=== PATIENT | female | born 1935 | race Caucasian/White ===

== ENCOUNTER 2024-12-19 11:24 | Outpatient (CLI) | payer SELFPAY ==
[2024-12-19 11:39] LABS: Basophils % 0.2 %; Eosinophils # 0.1 10^3/uL (0.0-0.8); Hematocrit 37.6 % (36-47); Lymphocytes % 31.5 %; Mean Corpuscular Hemoglobin 31.2 pg (27-33); Mean Corpuscular Volume 94.5 fl (85-98); Mean Platelet Volume 9.1 fL (7.4-10.4); Monocytes # 0.6 10^3/uL (0.2-0.9); Monocytes % 8.9 %; Neutrophils # 3.65 10^3/uL (1.8-7.7); Neutrophils % 58.1 %; Nucleated Red Blood Cells % 0 %; Platelet Count 151 10^3/cmm (157-399); Red Blood Count 3.98 10^6/uL (3.85-5.65); Red Cell Distribution Width 13.1 % (12.1-15.1); White Blood Count 6.28 10^3/uL (3.29-11.43)
[2024-12-19 11:59] LABS: Alanine Aminotransferase 17 U/L (0-33); Albumin Level 3.3 g/dL (3.5-5.2); Alkaline Phosphatase 68 U/L (35-105); Anion Gap 12.6 (5-19); Aspartate Amino Transferase 29 U/L (0-32); Blood Urea Nitrogen 43 mg/dL (8-23); Calcium 9.1 mg/dL (8.5-10.5); Carbon Dioxide 27 mmol/L (22-29); Chloride 102 mmol/L (98-107); Chol HDL Ratio 4.18 mg/dL (0.0-4.40); Cholesterol 138 mg/dL (0-200); Globulin 2.6 g/dL (1.3-4.6); HDL Cholesterol 33 mg/dL (60-100); LDL Cholesterol Calculated 72 mg/dL (50-129); LDL HDL Ratio 2.18 RATIO (0.00-3.22); Osmolality Calculated 293 mOsm/kg (285-295); Potassium 3.6 mmol/L (3.5-5.1); Sodium 138 mmol/L (136-145); Total Bilirubin 0.5 mg/dL (0.15-1.2); Total Protein 5.9 g/dL (6.6-8.7); Triglycerides 165 mg/dL (0-150)
[2024-12-19 12:40] LABS: Estmated Average Glucose 134; Hemoglobin A1C 6.3 % (4.0-6.0)
[2024-12-19 13:11] LABS: Glucose 35 mg/dL (65-115)
== END 2024-12-19 11:25 | disposition home or self-care (01) ==
LOC: LAB 11:30
PROVIDERS: PCP Family Medicine; Visit Provider Family Medicine
DX: I10 Essential (primary) hypertension (principal)
CPT/HCPCS: 80053; 80061; 83036; 85025

== ENCOUNTER 2025-01-01 23:36 | Emergency (ER) | payer SELFPAY ==
[2025-01-01 23:37] VITALS: BP 115/71; PULSE 51; RESP 20; TEMP 36.6; O2SAT 93
--- NOTE | 2025-01-01 23:50 | W.ED.RECABL ---
HPI - Recheck/Abnormal Lab/Rx General: Chief Complaint: Recheck/Abnormal Lab/Rx Stated Complaint: LOW BS Time Seen by Provider: 01/01/25 23:39 History of Present Illness: Patient brought in by EMS for hypoglycemia from [facility]. Patient is a DNR. Patient had poor oral intake throughout the day. Patient had received her usual diabetic medications including Lantus. This evening was noted that patient's blood sugar was 41. Patient decreased activity. Patient appears nontoxic. Related Data Previous Rx's ?Medication ?Instructions ?Recorded carvedilol 12.5 mg tablet 12.5 mg PO BID #60 tabs 01/02/25 cephalexin 250 mg capsule 250 mg PO BID 7 days #14 caps 01/02/25 insulin glargine 100 unit/mL 18 unit (0.18 mL) SUBCUT DAILY #10 01/02/25 subcutaneous solution (Lantus mL U-100 Insulin) Review of Systems General: Reports: 10 or more systems reviewed and unremarkable except in HPI and below Physical Exam Const: COMMON NORMALS: average body habitus HENMT: COMMON NORMALS: normocephalic HEAD & SCALP: normocephalic Neck/C-Spine: COMMON NORMALS: full ROM Resp: COMMON NORMALS: normal respiratory effort GI: PALPATION: No Tenderness to palpation present (GI) Back/Pelvis: COMMON NORMALS: thoracic and lumbar spine normal to inspection Extremity: COMMON NORMALS: no pedal edema Neuro: OTHER: Nonverbal Skin: COMMON NORMALS: turgor normal GENERAL SKIN EXAM: turgor normal Course Vital Signs: Vital signs: Vital Signs Temperature 98 F 01/01/25 23:37 Pulse Rate 51 L 01/01/25 23:37 Respiratory Rate 20 H 01/01/25 23:37 Blood Pressure 115/71 01/01/25 23:37 Pulse Oximetry 93 01/01/25 23:37 MDM - Recheck/Abnormal Lab/Rx Medical Decision Making 89-year-old female comes in today for concerns of low blood glucose. Patient appears nontoxic. Blood glucose at this time is 240. Patient had a recorded blood glucose of 41 at the [facility] when EMS arrived. Patient eyes open and she looks around but then she closes her eyes again. Patient does not respond to verbal stimuli. Patient is only oriented to self. Patient has a history of chronic kidney disease, insulin-dependent diabetes, hypertension, heart disease, stroke syndrome and nonverbal. Patient's pulse rate is 51 the patient takes 25 carvedilol twice a day. Patient is routinely on Plavix. Patient takes her losartan for blood pressure. EKG was a sinus bradycardia. Differential diagnosis sepsis, hypoglycemia, electrolyte imbalance, pneumonia, urinary tract infection. CBC was unremarkable. CMP noted a improvement in patient's creatinine from 1.6-1.3. Patient's urinalysis had a large amount of white blood cells and this was a straight cath. Recommended patient's carvedilol be reduced from 25 mg twice a day to 12-1/2 mg twice a day due to patient's bradycardia. Recommend decreasing Lantus from 22 units daily to 18 units daily to help with patient's hypoglycemia. Patient will be given 1 g of Rocephin in the ER for urinary tract infection and be continued on cephalexin 250 twice a day for the next 7 days. Encourage fluids rest and healthy diet. Patient was discharged back to [facility] in stable condition. Lab Data 01/02/25 00:00 01/02/25 00:00 Radiology Impressions Chest X-Ray 01/02/25 00:05 IMPRESSION: 1. Cardiomegaly. 2. Aortic atherosclerotic calcifications. Laboratory Results WBC 7.65 10^3/uL (3.29-11.43) 01/02/25 00:00 RBC 3.82 10^6/uL (3.85-5.65) L 01/02/25 00:00 Hgb 11.80 g/dL (11.27-16.99) 01/02/25 00:00 Hct 35.3 % (36-47) L 01/02/25 00:00 MCV 92.4 fl (85-98) 01/02/25 00:00 MCH 30.9 pg (27-33) 01/02/25 00:00 MCHC 33.4 g/dL (30-55) 01/02/25 00:00 RDW 13.4 % (12.1-15.1) 01/02/25 00:00 Plt Count 146 10^3/cmm (157-399) L 01/02/25 00:00 MPV 8.9 fL (7.4-10.4) 01/02/25 00:00 Neut % (Auto) 77.1 % 01/02/25 00:00 Lymph % (Auto) 17.5 % 01/02/25 00:00 Bent % (Auto) 4.7 % 01/02/25 00:00 Eos % (Auto) 0.5 % 01/02/25 00:00 Baso % (Auto) 0.1 % 01/02/25 00:00 Neut # (Auto) 5.89 10^3/uL (1.8-7.7) 01/02/25 00:00 Lymph # (Auto) 1.3 10^3/uL (0.8-4.8) 01/02/25 00:00 Bent # (Auto) 0.4 10^3/uL (0.2-0.9) 01/02/25 00:00 Eos # (Auto) 0.0 10^3/uL (0.0-0.8) 01/02/25 00:00 Baso # (Auto) 0.0 10^3/uL (0.0-0.1) 01/02/25 00:00 Nucleated RBC % (auto) 0 % 01/02/25 00:00 Nucleated RBCs # 0.0 /100WBC 01/02/25 00:00 Sodium 133 mmol/L (136-145) L 01/02/25 00:00 Potassium 3.8 mmol/L (3.5-5.1) 01/02/25 00:00 Chloride 96 mmol/L (98-107) L 01/02/25 00:00 Carbon Dioxide 28 mmol/L (22-29) 01/02/25 00:00 Anion Gap 12.8 (5-19) 01/02/25 00:00 BUN 31 mg/dL (8-23) H 01/02/25 00:00 Creatinine 1.3 mg/dL (0.5-0.9) H 01/02/25 00:00 GFR Calculation Not Reportable 01/02/25 00:00 Glucose 165 mg/dL (65-115) H 01/02/25 00:00 POC Glucose 234 mg/dL (70-110) H 01/01/25 23:42 Calculated Osmolality 286 mOsm/kg (285-295) 01/02/25 00:00 Calcium 9.1 mg/dL (8.5-10.5) 01/02/25 00:00 Total Bilirubin 0.4 mg/dL (0.15-1.2) 01/02/25 00:00 AST 122 U/L (0-32) H 01/02/25 00:00 ALT 34 U/L (0-33) H 01/02/25 00:00 Alkaline Phosphatase 76 U/L (35-105) 01/02/25 00:00 Total Protein 6.2 g/dL (6.6-8.7) L 01/02/25 00:00 Albumin 3.1 g/dL (3.5-5.2) L 01/02/25 00:00 Globulin 3.1 g/dL (1.3-4.6) 01/02/25 00:00 Urine Color Yellow (Yellow) 01/02/25 00:25 Urine Appearance Turbid (CLEAR) A 01/02/25 00:25 Urine pH 7.0 (5-7) 01/02/25 00:25 Ur Specific [place] 1.016 (1.005-1.030) 01/02/25 00:25 Urine Protein 1+ (Negative) A 01/02/25 00:25 Urine Glucose (UA) Trace (Normal) H 01/02/25 00:25 Urine Ketones Negative (Negative) 01/02/25 00:25 Urine Blood Trace (Negative) A 01/02/25 00:25 Urine Nitrate Negative (Negative) 01/02/25 00:25 Urine Bilirubin Negative (Negative) 01/02/25 00:25 Urine Urobilinogen 0.2 mg/dL (Negative) 01/02/25 00:25 Ur Leukocyte Esterase 3+ (Negative) A 01/02/25 00:25 Urine RBC 3-5 /hpf (0-2) 01/02/25 00:25 Urine WBC >100 /hpf (0-5) H 01/02/25 00:25 Ur Squamous Epith Cells 21-50 /hpf (0-5) H 01/02/25 00:25 Amorphous Sediment Not Reportable 01/02/25 00:25 Urine Bacteria 4+ /hpf (NONE) H 01/02/25 00:25 Hyaline Casts 23.57 /lpf 01/02/25 00:25 All radiology interpretation(s) finalized by discharge Discharge Plan Discharge Patient Disposition: Home Clinical Impression: Hypoglycemia, Acute UTI Condition: Stable Prescriptions: New carvedilol 12.5 mg tablet 12.5 mg PO BID Qty: 60 0RF Rx Instructions: must administer with a meal/food insulin glargine [Lantus U-100 Insulin] 100 unit/mL solution 18 unit SUBCUT DAILY Qty: 10 0RF cephalexin 250 mg capsule 250 mg PO BID 7 Days Qty: 14 0RF Discharge Orders: Discharge ED (Routine); Ordered 01/02/25 Ordered By: Jerome Cline Referrals: Lex Pan MD [Primary Care Provider] - Discharge Diet: Usual diet Discharge Activity: Increase activity as tolerated Patient Instructions: Hypoglycemia Activity Restrictions/Additional Instructions: Recommend reducing Lantus from 22 units daily to 18 units daily. Recommend decreasing carvedilol to 12-1/2 mg twice daily. Recommend cephalexin 250 twice a day for 7 days for urinary tract infection. Encourage plenty of fluids. Encourage healthy diet. Follow-up with primary care. Print Language: Indonesian Coding Level of Care Code ED Historic Sites Registrar for Megan Silva
--- NOTE | 2025-01-01 23:53 | ECG_ITS ---
[facility] 2025[facility] Pat Name: Sara Almeida Department: Room: Gender: Female Ict Programmer: : 1935 Requested By: Jerome Monique Order Number: [id number] Daniel MD: Trey Kaur M.D. Measurements Intervals [place] Rate: 46 P: 23 UT: 244 QRS: 91 QRSD: 98 T: 68 QT: 481 QTc: 421 Interpretive Statements SINUS BRADYCARDIA WITH SIGNIFICANT BASELINE ARTIFACT BORDERLINE RIGHT AXIS DEVIATION [QRS AXIS > 90] PATTERN CONSISTENT WITH PULMONARY DISEASE MODERATE ST DEPRESSION [0.05+ mV ST DEPRESSION] No previous ECG available for comparison Electronically Signed On 01-02-2025 19:28:26 NUCLEAR WEAPONS SPECIALIST by Trey Kaur M.D. [id number]
--- NOTE | 2025-01-02 00:05 | XRR_ITS ---
PROCEDURE INFORMATION: Exam: XR Chest Exam date and time: 01/02/2025 12:08 AM Age: 89 years old Clinical indication: AMS; Nonverbal PT; Uknown HX TECHNIQUE: Imaging protocol: Radiologic exam of the chest. Views: 1 view. COMPARISON: No relevant prior studies available. FINDINGS: Lungs: Unremarkable. No consolidation. Pleural spaces: Unremarkable. No pleural effusion. No pneumothorax. Heart/Mediastinum: Cardiomegaly. Vasculature: Aortic atherosclerotic calcifications. Bones/joints: Unremarkable. XR/XR chest 1V portable [id number] IMPRESSION: 1. Cardiomegaly. 2. Aortic atherosclerotic calcifications.
[2025-01-02 00:07] LABS: Glucose Point of Care 234 mg/dL (70-110)
[2025-01-02 00:24] LABS: Alanine Aminotransferase 34 U/L (0-33); Albumin Level 3.1 g/dL (3.5-5.2); Alkaline Phosphatase 76 U/L (35-105); Anion Gap 12.8 (5-19); Aspartate Amino Transferase 122 U/L (0-32); Blood Urea Nitrogen 31 mg/dL (8-23); Calcium 9.1 mg/dL (8.5-10.5); Carbon Dioxide 28 mmol/L (22-29); Chloride 96 mmol/L (98-107); Globulin 3.1 g/dL (1.3-4.6); Glucose 165 mg/dL (65-115); Osmolality Calculated 286 mOsm/kg (285-295); Potassium 3.8 mmol/L (3.5-5.1); Sodium 133 mmol/L (136-145); Total Bilirubin 0.4 mg/dL (0.15-1.2); Total Protein 6.2 g/dL (6.6-8.7)
[2025-01-02 00:26] LABS: Basophils % 0.1 %; Eosinophils % 0.5 %; Hematocrit 35.3 % (36-47); Lymphocytes # 1.3 10^3/uL (0.8-4.8); Lymphocytes % 17.5 %; Mean Corpuscular HGB Conc 33.4 g/dL (30-55); Mean Corpuscular Hemoglobin 30.9 pg (27-33); Mean Corpuscular Volume 92.4 fl (85-98); Mean Platelet Volume 8.9 fL (7.4-10.4); Monocytes # 0.4 10^3/uL (0.2-0.9); Monocytes % 4.7 %; Neutrophils # 5.89 10^3/uL (1.8-7.7); Neutrophils % 77.1 %; Nucleated Red Blood Cells % 0 %; Platelet Count 146 10^3/cmm (157-399); Red Blood Count 3.82 10^6/uL (3.85-5.65); Red Cell Distribution Width 13.4 % (12.1-15.1); White Blood Count 7.65 10^3/uL (3.29-11.43)
[2025-01-02 00:32] LABS: Bilirubin Urine Negative (Negative); Blood Urine Trace (Negative); Glucose Urine UA Trace (Normal); Ketones Urine Negative (Negative); Leukocyte Esterase Urine 3+ (Negative); Nitrate Urine Negative (Negative); Protein Urine 1+ (Negative); Specific Gravity, Urine 1.016 (1.005-1.030); Urine Appearance Turbid (CLEAR); Urine Color Yellow (Yellow); Urobilinogen Urine 0.2 mg/dL (Negative)
[2025-01-02 00:37] LABS: Add Urine Microscopic? YES; Bacteria Urine 4+ /hpf; Hyaline Casts Urine 23.57 /lpf; Squamous Epithelial Cell Urine 21-50 /hpf (0-5); Universal Test for UA Present (0); WBC Urine >100 /hpf (0-5)
[2025-01-02 00:53] LABS: Add Urine Culture? No
[2025-01-02] MEDS: cefTRIAXone 1,000 mg SDV 1000 MG IVP (01:21)
[2025-01-02 01:22] VITALS: BP 126/37; PULSE 49; O2SAT 98
[2025-01-02 03:55] VITALS: BP 132/38; PULSE 50; O2SAT 98
[2025-01-02 05:40] VITALS: PULSE 50; O2SAT 98
[2025-01-02 07:30] VITALS: BP 154/87; PULSE 56; O2SAT 97
--- NOTE | 2025-01-02 07:30 | PC.NURSE ---
report given to [facility] @[id number], no further questions.
== END 2025-01-02 07:38 | disposition home or self-care (01) ==
PROVIDERS: Emergency Provider Nurse Practitioner Family; PCP Family Medicine
DX: E16.2 Hypoglycemia, unspecified (principal); Z79.4 Long term (current) use of insulin
CPT/HCPCS: 36416; 71045; 80053; 81001; 82962; 85025; 93005; 96374; 99285; J0696

== ENCOUNTER 2025-01-03 09:04 | Inpatient (IN) | payer MEDICARE, OTHER, SELFPAY ==
[2025-01-03] VITALS (88 sets, daily range): BP systolic 95–162; BP diastolic 24–91; PULSE 40–76; RESP 10–25; TEMP 36.4–36.7; O2SAT 90–100
--- NOTE | 2025-01-03 09:21 | ECG_ITS ---
[facility] Test Date: 2025-01-03 Pat Name: Sara Almeida Department: Room: 253 Gender: Female Quality Assurance Assessor: : 1935 Requested By: Poornima Farias Order Number: [id number] Reading MD: SOPHIA VILLALBA Measurements Intervals [place] Rate: 44 P: 90 DE: 267 QRS: -31 QRSD: 106 T: 21 QT: 464 QTc: 400 Interpretive Statements SINUS BRADYCARDIA WITH FIRST DEGREE AV BLOCK LEFT AXIS DEVIATION [QRS AXIS < -30] POSSIBLE ANTERIOR MYOCARDIAL INFARCTION , PROBABLY OLD [30 ms Q WAVE IN V3/V4, OR R < 0.2 mV IN V4] Compared to ECG 01/01/2025 23:53:13 First degree AV block now present Left-axis deviation now present Myocardial infarct finding now present ST (T wave) deviation no longer present Electronically Signed On 01-04-2025 22:32:15 CDT by SOPHIA VILLALBA [id number]
--- NOTE | 2025-01-03 09:21 | PC.PHAR ---
Pt is from [facility]
--- NOTE | 2025-01-03 09:41 | CTR_ITS ---
PROCEDURE INFORMATION: Exam: CT Head Without Contrast Exam date and time: 01/03/2025 8:48 AM Age: 89 years old Clinical indication: Altered mental status/memory loss; Additional info: AMS TECHNIQUE: Imaging protocol: Computed tomography of the head without contrast. Radiation optimization: All CT scans at this facility use at least one of these dose optimization techniques: automated exposure control; mA and/or kV adjustment per patient size (includes targeted exams where dose is matched to clinical indication); or iterative reconstruction. COMPARISON: No relevant prior studies available. RADIATION DOSE METRICS: Total DLP (mGy-cm): 1013.18 FINDINGS: Brain: Encephalomalacia in the right MCA territory, from prior infarct. Age related diffuse parenchymal volume loss. There are bilateral periventricular white matter and centrum semiovale hypodensities, consistent with chronic ischemic small vessel disease. No recent infarct, intracranial bleed or mass effect. Cerebral ventricles: Ex vacuo dilatation of the ventricles. Paranasal sinuses: Visualized sinuses are unremarkable. No fluid levels. Mastoid air cells: Visualized mastoid air cells are well aerated. Bones: Unremarkable. No acute fracture. Soft tissues: Unremarkable. CT/CT head wo con* [id number] IMPRESSION: No large territorial infarct or intracranial bleed.
[2025-01-03 09:47] LABS: Glucose Point of Care 221 mg/dL (70-110)
[2025-01-03 09:50] LABS: Basophils % 0.1 %; Eosinophils % 0.2 %; Hematocrit 36.5 % (36-47); Lymphocytes # 1.2 10^3/uL (0.8-4.8); Lymphocytes % 14.8 %; Mean Corpuscular HGB Conc 32.3 g/dL (30-55); Mean Corpuscular Hemoglobin 30.5 pg (27-33); Mean Corpuscular Volume 94.3 fl (85-98); Mean Platelet Volume 8.7 fL (7.4-10.4); Monocytes # 0.3 10^3/uL (0.2-0.9); Monocytes % 4.2 %; Neutrophils # 6.57 10^3/uL (1.8-7.7); Neutrophils % 80.3 %; Nucleated Red Blood Cells % 0 %; Platelet Count 135 10^3/cmm (157-399); Red Blood Count 3.87 10^6/uL (3.85-5.65); Red Cell Distribution Width 13.8 % (12.1-15.1); White Blood Count 8.18 10^3/uL (3.29-11.43)
--- NOTE | 2025-01-03 09:55 | PC.PHAR ---
Dr Cline prescribed reduced dosage on Carvedilol 25mg bid to 12.5mg bid, and Lantus Solostar from 22 units to 18 units yesterday 01/02/25 for this pt. Chung at [facility] pt has not been reduced on either medication. Pt also has a new order for Keflex 250mg bid from 01/02/25 that has not been started yet. New lower dose medications were entered in pt chart and left on hold.
[2025-01-03 10:12] LABS: Alanine Aminotransferase 35 U/L (0-33); Albumin Level 3.1 g/dL (3.5-5.2); Alkaline Phosphatase 76 U/L (35-105); Anion Gap 13.6 (5-19); Aspartate Amino Transferase 85 U/L (0-32); Blood Urea Nitrogen 30 mg/dL (8-23); Calcium 9.2 mg/dL (8.5-10.5); Carbon Dioxide 27 mmol/L (22-29); Chloride 97 mmol/L (98-107); Globulin 3.1 g/dL (1.3-4.6); Glucose 163 mg/dL (65-115); Lactic Sepsis W/Reflex 1.1 mmol/L (0.5-2.2); Osmolality Calculated 288 mOsm/kg (285-295); Potassium 3.6 mmol/L (3.5-5.1); Sodium 134 mmol/L (136-145); Total Bilirubin 0.5 mg/dL (0.15-1.2); Total Protein 6.2 g/dL (6.6-8.7)
[2025-01-03 10:37] LABS: Glucose Point of Care 122 mg/dL (70-110)
[2025-01-03 11:54] LABS: Glucose Point of Care 107 mg/dL (70-110)
--- NOTE | 2025-01-03 12:16 | W.ED.RECABL ---
HPI - Recheck/Abnormal Lab/Rx General: Chief Complaint: Recheck/Abnormal Lab/Rx Stated Complaint: ams Time Seen by Provider: 01/03/25 09:05 History of Present Illness: This patient is an 89 year old [facility] and low blood sugar. She was seen here yesterday with low blood sugar as well. At discharge, the instructions indicate that she should have her night time lantus dose changed to 18 units rather than 22, and her coreg dose was also decreased to 12.5 due to bradycardia. EMS was told that she [facility] 22 [facility] were also told that the [facility]'t [facility] blood [facility] prior to giving that medicine. The nurse that called report to the ED charge nurse this morning said she did know if anyone had checked on the patient last night so there is no LKW other than yesterday evening at some point. The patient was also diagnosed with a UTI yesterday and was prescribed antibiotics. 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 Her normal mental status is not known at this time. Related Data Home Medications ?Medication ?Instructions ?Recorded ?Confirmed cetirizine 10 mg tablet 10 mg PO DAILY 01/03/25 01/03/25 clopidogrel 75 mg tablet 75 mg PO DAILY 01/03/25 01/03/25 Held on 01/05/25. Instructions: Resume on 01/11/25. escitalopram oxalate 20 mg tablet 20 mg PO DAILY 01/03/25 01/03/25 furosemide 20 mg tablet 20 mg PO DAILY 01/03/25 01/03/25 hydralazine 25 mg tablet 25 mg PO TID 01/03/25 01/03/25 levothyroxine 25 mcg tablet 25 mcg PO DAILY 01/03/25 01/03/25 magnesium oxide 400 mg PO BID 01/03/25 01/03/25 pantoprazole 40 mg tablet,delayed 40 mg PO DAILY 01/03/25 01/03/25 release potassium bicarbonate-citric acid 10 meq PO BID 01/03/25 01/03/25 10 mEq effervescent tablet (Effer-K) pravastatin 10 mg tablet 10 mg PO QPM 01/03/25 01/03/25 Previous Rx's ?Medication ?Instructions ?Recorded cefdinir 300 mg capsule 300 mg PO BID 7 days #14 caps 01/05/25 losartan 50 mg tablet 25 mg (1/2 x 50 mg) PO DAILY 30 01/05/25 days #0 tabs metoprolol tartrate 25 mg tablet 25 mg PO BID #60 tabs 01/05/25 Allergies Allergy/AdvReac Type Severity Reaction Status Date / Time ciprofloxacin (From Cipro) Allergy Unknown Verified 01/04/25 11:40 Penicillins Allergy Unknown Verified 01/04/25 11:40 propoxyphene (From Darvon) Allergy Unknown Verified 01/04/25 11:40 Sulfa (Sulfonamide Allergy Unknown Verified 01/04/25 11:40 Antibiotics) PFS ED PFSH: Medical History (Updated 01/07/25 @ 15:48 by Poornima Silva MD) Urinary retention Acute UTI Physical Exam Const: COMMON NORMALS: no acute distress GENERAL APPEARANCE: comfortable and frail appearing HENMT: HEAD & SCALP: normal to inspection FACE & SINUS: normal facial exam Eye: GENERAL EYE: appearance normal, both eyes and all related structures OTHER: keeps eyes closed but when I open them, the pupil are midsized and reactive Neck/C-Spine: COMMON NORMALS: supple, no meningeal signs and no JVD Chest: COMMONS NORMALS: normal inspection of the chest Resp: COMMON NORMALS: normal respiratory effort, No use of accessory muscles and clear to auscultation bilaterally AUSCULTATION: clear to auscultation bilaterally OTHER: intermittent snoring Cardio: COMMON NORMALS: no JVD, regular rate, regular rhythm and No murmurs present (Cardio) RATE: regular rate and bradycardic RHYTHM: regular rhythm GI: COMMON NORMALS: Normal to inspection, nondistended, normoactive bowel sounds present, Soft to palpation and non-tender INSPECTION: Yes normal to inspection AUSCULTATION: Yes normoactive bowel sounds PALPATION: Yes Soft to palpation Back/Pelvis: COMMON NORMALS: thoracic and lumbar spine normal to inspection Extremity: COMMON NORMALS: normal to inspection Neuro: MENINGEAL SIGNS: Yes no meningeal signs OTHER: withdraws from noxious stimuli in bilateral lower extremities and left upper extremity. Left upper is hypertonic likely related to prior stroke Skin: COMMON NORMALS: no rashes or lesions noted and turgor normal GENERAL SKIN EXAM: no rashes or lesions noted and turgor normal Course Vital Signs: Vital signs: Vital Signs Temperature 98.3 F 01/05/25 14:07 Pulse Rate 75 01/05/25 14:07 Respiratory Rate 16 01/05/25 14:07 Blood Pressure 132/72 01/05/25 14:07 Pulse Oximetry 98 01/05/25 14:07 Oxygen Delivery Me thod Room Air 01/05/25 11:25 MDM - Recheck/Abnormal Lab/Rx Medical Decision Making Patient with decreased mental status - initially hypoglyemic, but even once glucose is corrected she remains somnelent. Vitals are good other than bradycardia. Unclear reason for her encephalopathy - CT head with large prior stroke but no new findings. Labs unremarkable. Her initial temp was normal, implying that there was not a prolonged period of hypoglycemia. Will try to get her to wake up and eat something. Lab Data 01/05/25 05:15 01/05/25 05:[address] 01/03/25 09:41 IMPRESSION: No large territorial infarct or intracranial bleed. Abdomen/Pelvis CT 01/03/25 12:57 IMPRESSION: No acute intra-abdominal process. No intra-abdominal hematomas. COMMENTS: Consistent with the [place] [employer]'s Incidental Findings Committee white paper (J Am Tio Radiol 2018): Any incidental renal lesion less than 1 cm or classified as too small to characterize, or any incidental cystic renal lesion characterized as simple-appearing, is likely benign. No follow-up imaging is recommended for these lesions per consensus recommendations based on imaging criteria. Chest X-Ray 01/03/25 12:57 IMPRESSION: No acute cardiopulmonary process. Laboratory Results WBC 8.18 10^3/uL (3.29-11.43) 01/03/25 09:46 RBC 3.87 10^6/uL (3.85-5.65) 01/03/25 09:46 Hgb 11.80 g/dL (11.27-16.99) 01/03/25 09:46 Hct 36.5 % (36-47) 01/03/25 09:46 MCV 94.3 fl (85-98) 01/03/25 09:46 MCH 30.5 pg (27-33) 01/03/25 09:46 MCHC 32.3 g/dL (30-55) 01/03/25 09:46 RDW 13.8 % (12.1-15.1) 01/03/25 09:46 Plt Count 135 10^3/cmm (157-399) L 01/03/25 09:46 MPV 8.7 fL (7.4-10.4) 01/03/25 09:46 Neut % (Auto) 80.3 % 01/03/25 09:46 Lymph % (Auto) 14.8 % 01/03/25 09:46 [place] % (Auto) 4.2 % 01/03/25 09:46 Eos % (Auto) 0.2 % 01/03/25 09:46 Baso % (Auto) 0.1 % 01/03/25 09:46 Neut # (Auto) 6.57 10^3/uL (1.8-7.7) 01/03/25 09:46 Lymph # (Auto) 1.2 10^3/uL (0.8-4.8) 01/03/25 09:46 [place] # (Auto) 0.3 10^3/uL (0.2-0.9) 01/03/25 09:46 Eos # (Auto) 0.0 10^3/uL (0.0-0.8) 01/03/25 09:46 Baso # (Auto) 0.0 10^3/uL (0.0-0.1) 01/03/25 09:46 Nucleated RBC % (auto) 0 % 01/03/25 09:46 Nucleated RBCs # 0.0 /100WBC 01/03/25 09:46 Sodium 134 mmol/L (136-145) L 01/03/25 09:46 Potassium 3.6 mmol/L (3.5-5.1) 01/03/25 09:46 Chloride 97 mmol/L (98-107) L 01/03/25 09:46 Carbon Dioxide 27 mmol/L (22-29) 01/03/25 09:46 Anion Gap 13.6 (5-19) 01/03/25 09:46 BUN 30 mg/dL (8-23) H 01/03/25 09:46 Creatinine 1.3 mg/dL (0.5-0.9) H 01/03/25 09:46 GFR Calculation Not Reportable 01/03/25 09:46 Glucose 163 mg/dL (65-115) H 01/03/25 09:46 POC Glucose 111 mg/dL (70-110) H 01/03/25 17:11 Calculated Osmolality 288 mOsm/kg (285-295) 01/03/25 09:46 Lactic Acid 1.1 mmol/L (0.5-2.2) 01/03/25 09:46 Calcium 9.2 mg/dL (8.5-10.5) 01/03/25 09:46 Total Bilirubin 0.5 mg/dL (0.15-1.2) 01/03/25 09:46 AST 85 U/L (0-32) H 01/03/25 09:46 ALT 35 U/L (0-33) H 01/03/25 09:46 Alkaline Phosphatase 76 U/L (35-105) 01/03/25 09:46 Total Protein 6.2 g/dL (6.6-8.7) L 01/03/25 09:46 Albumin 3.1 g/dL (3.5-5.2) L 01/03/25 09:46 Globulin 3.1 g/dL (1.3-4.6) 01/03/25 09:46 TSH 4.71 uIU/mL (0.27-4.20) H 01/03/25 09:46 All radiology interpretation(s) finalized by discharge Discharge Plan Discharge Patient Disposition: Admitted As Inpatient Admit Provider: Christiane Clarke Clinical Impression: Hypoglycemia associated with diabetes Condition: Stable Discharge Activity: Resume usual activity Coding Level of Care Code ED Trimmer And Reinforcer for [facility] Shira
--- NOTE | 2025-01-03 12:28 | PC.NURSE ---
PT SON, TRENTON, CALLED AND ASKED FOR PT UPDATE. PT INFORMED NURSE THAT PT HAD A PREVIOUS STROKE AND HAS VERY LIMITED MOVEMENT TO LEFT SIDE OF BODY. PT IS USUALLY IN A WHEELCHAIR AND RARELY SPEAKS PER SON. SON STATES HE IS AVAILABLE ANYTIME IF NEEDED.
--- NOTE | 2025-01-03 12:57 | CTR_ITS ---
PROCEDURE INFORMATION: Exam: CT Abdomen And Pelvis With Contrast Exam date and time: 01/03/2025 12:13 PM Age: 89 years old Clinical indication: Other: Hematemesis TECHNIQUE: Imaging protocol: Computed tomography of the abdomen and pelvis with contrast. Radiation optimization: All CT scans at this facility use at least one of these dose optimization techniques: automated exposure control; mA and/or kV adjustment per patient size (includes targeted exams where dose is matched to clinical indication); or iterative reconstruction. Contrast material: OMNI 350; Contrast volume: 92 ml; Contrast route: INTRAVENOUS (IV); COMPARISON: CR (CHEST, ) 01/02/2025 12:08 AM RADIATION DOSE METRICS: Total DLP (mGy-cm): 457.46 FINDINGS: Lungs: Bilateral lower lobe atelectasis. Pleural spaces: Small bilateral pleural effusions. Coronary arteries: There is mild atherosclerotic calcification of the coronary arteries. Liver: Normal. No mass. Gallbladder and biliary ducts: Normal. No calcified stones. No ductal dilation. Pancreas: Normal. No ductal dilation. Spleen: There are multiple calcified granulomas of the spleen. Adrenal glands: Normal. No mass. Kidneys and ureters: Bilateral simple renal cysts measuring up to 8 mm in the interpolar region of the right kidney. There are multiple bilateral renal collecting system calcifications. There is no evidence of hydronephrosis. Stomach and bowel: Unremarkable. No obstruction. No mucosal thickening. Appendix: No evidence of appendicitis. Intraperitoneal space: Unremarkable. No free air. No significant fluid collection. Vasculature: There are numerous benign phleboliths in the pelvis. Calcified atheromas of the visualized arteries. Lymph nodes: Unremarkable. No enlarged lymph nodes. Urinary bladder: Unremarkable as visualized. Reproductive: Unremarkable as visualized. Bones/joints: There are mild degenerative changes of the sacroiliac joints. There are mild degenerative changes of the hip joints. The pubic symphysis demonstrates mild degenerative changes. S shaped curvature of the lumbar spine. The lumbar spine demonstrates moderate degenerative changes at multiple levels. Mild anterolisthesis of L4 over L5 and L5 over S1. Soft tissues: Unremarkable. CT/CT abdomen pelvis w con* [id number] IMPRESSION: No acute intra-abdominal process. No intra-abdominal hematomas. COMMENTS: Consistent with the [place] [employer]'s Incidental Findings Committee white paper (J Am Tio Radiol 2018): Any incidental renal lesion less than 1 cm or classified as too small to characterize, or any incidental cystic renal lesion characterized as simple-appearing, is likely benign. No follow-up imaging is recommended for these lesions per consensus recommendations based on imaging criteria.
--- NOTE | 2025-01-03 12:57 | XRR_ITS ---
PROCEDURE INFORMATION: Exam: XR Chest Exam date and time: 01/03/2025 1:05 PM Age: 89 years old Clinical indication: Other: Hematemesis TECHNIQUE: Imaging protocol: Radiologic exam of the chest. Views: 1 view. COMPARISON: CR (CHEST, ) 01/02/2025 12:08 AM FINDINGS: Lungs: Unremarkable. No consolidation. Pleural spaces: Unremarkable. No pleural effusion. No pneumothorax. Heart/Mediastinum: The heart is enlarged. Vasculature: There are aortic arch calcifications. There is unfolding of the thoracic aorta. Bones/joints: Mild degenerative disease of bilateral acromioclavicular joints. Mild curvature of the thoracic spine convex to the right. XR/XR chest 1V portable [id number] IMPRESSION: No acute cardiopulmonary process.
[2025-01-03 13:13] LABS: Glucose Point of Care 77 mg/dL (70-110)
[2025-01-03] MEDS: iohexol 350 mg/mL 500 mL Btl (per mL) IV (13:25)
[2025-01-03] MEDS: dextrose 5%-sod chloride 0.9% 1,000 ML 100 ML IV (13:53)
[2025-01-03 14:34] LABS: Glucose Point of Care 83 mg/dL (70-110)
[2025-01-03 15:50] LABS: Glucose Point of Care 97 mg/dL (70-110)
[2025-01-03 17:30] LABS: Glucose Point of Care 111 mg/dL (70-110)
--- NOTE | 2025-01-03 18:20 | PC.NURSE ---
pts son asim called and gave a scattered hx of pts medical past. the son gave permission for the rn to call pts nurse at [facility], [place]. this rn contacted [facility] and got a better medical hx. pt has had a prev. cva approx. 8 yrs ago. pt has significant L side deficits. this is her baseline. pt doesn't not really communicate except some sounds and head movement to yes or no questions. [facility] stated, pt was given 22 units of lantus 01/02 evening. [facility] staff was concerned abt pt bleeding from her mouth. er nurse stated, pt bit her tongue. [facility] to send pts poa paperwork via fax.
--- NOTE | 2025-01-03 18:28 | PM.HP ---
Providers/Chief Complaint Admitting Physician: Christiane Clarke MD Primary Care Provider: Lex Pan MD Chief Complaint: ams History of Present Illness Sara Almeida is a 89 year old female with PMH CVA 7 years ago following which she has been nonambulatory, nonverbal, speaks only 1-2 short words and few basic sentences, has been wheelchair-bound. Patient used to live with her son in [facility], [place] and receiving home care until about a month ago when she moved into [place]. She presented to the emergency room yesterday with hypoglycemia. She received dextrose infusion and was instructed to reduce her Lantus dosing. However this afternoon she returned again from the residential with hypoglycemia. Additionally she was noted to have dried blood crusted around her mouth and around her neck. There was concern for potential GI bleeding as she has a history of gastric ulcers and she was sent into the emergency room for these issues. Upon first pain found reportedly her blood sugar was in the 40s. She received dextrose via EMS and glucose upon arrival was improved at 160, however since then has continued to downtrend back to 77 and 80s. She has been started on dextrose infusion in the emergency room. Discussed with son that before patient came to live at [place] she used to receive insulin Lantus based on her fingerstick values. She was on 7 units at best. She did have episodes of hypoglycemia even at home but these appear to have worsened more recently. Review of labs in our computer from November 2024 show a blood sugar of 35. Per [place], patient has had a poor p.o. intake over the last few days. On some days she misses meals. She does need assistance with feeding, will use some finger foods by herself but mostly needs to be fed. Review of Systems General: Reports: ROS unobtainable due to medical condition and ROS unobtainable due to mental status Medications/Allergies Home Medications ?Medication ?Instructions ?Recorded ?Confirmed ?Last Taken ?Type carvedilol 12.5 mg tablet 12.5 mg PO BID #60 tabs 01/02/25 01/03/25 Unknown Rx cephalexin 250 mg capsule 250 mg PO BID 7 days #14 caps 01/02/25 01/03/25 Unknown Rx insulin glargine 100 unit/mL 18 unit (0.18 mL) SUBCUT DAILY #10 01/02/25 01/03/25 Unknown Rx subcutaneous solution (Lantus mL U-100 Insulin) carvedilol 25 mg tablet 25 mg PO BID 01/03/25 01/03/25 01/02/25 History cetirizine 10 mg tablet 10 mg PO DAILY 01/03/25 01/03/25 01/02/25 History clopidogrel 75 mg tablet 75 mg PO DAILY 01/03/25 01/03/25 01/02/25 History escitalopram oxalate 20 mg tablet 20 mg PO DAILY 01/03/25 01/03/25 01/02/25 History furosemide 20 mg tablet 20 mg PO DAILY 01/03/25 01/03/25 01/02/25 History hydralazine 25 mg tablet 25 mg PO TID 01/03/25 01/03/25 12/26/24 History insulin glargine 100 unit/mL (3 22 unit SUBCUT QPM 01/03/25 01/03/25 01/02/25 History mL) subcutaneous pen (Lantus Solostar U-100 Insulin) levothyroxine 25 mcg tablet 25 mcg PO DAILY 01/03/25 01/03/25 01/02/25 History losartan 50 mg tablet 50 mg PO DAILY 01/03/25 01/03/25 01/02/25 History magnesium oxide 400 mg PO BID 01/03/25 01/03/25 01/02/25 History pantoprazole 40 mg tablet,delayed 40 mg PO DAILY 01/03/25 01/03/25 01/02/25 History release potassium bicarbonate-citric acid 10 meq PO BID 01/03/25 01/03/25 01/02/25 History 10 mEq effervescent tablet (Effer-K) pravastatin 10 mg tablet 10 mg PO QPM 01/03/25 01/03/25 01/02/25 History Vitals/I&O/Wt Last Vital Signs Temp 97.5 F L 01/03/25 17:47 Pulse 56 L 01/03/25 17:47 Resp 17 01/03/25 17:47 BP 148/53 01/03/25 17:47 Pulse Ox 97 01/03/25 17:47 O2 Del Method Room Air 01/03/25 17:47 Physical Exam Narrative: General: Elderly frail-appearing woman laying in bed in no acute distress at this time. HEENT: PERRLA, pupils bilaterally equal and reactive, pallors not present Chest: Normal vesicular breath sounds, no added sounds, equal good air entry bilaterally CVS: S1-S2 regular, no murmurs, no tachycardia, no gallops, no rubs Abdomen: Soft, nontender, no organomegaly, bowel sounds present Neuro: Contractures affecting upper and lower extremities. Will open her mouth when presented with a straw to drink orange juice. Does appear to follow instructions to drink juice that is presented to her. Data 01/03/25 09:46 01/03/25 09:46 Other Labs: Radiology Impressions Head CT 01/03/25 09:41 IMPRESSION: No large territorial infarct or intracranial bleed. Abdomen/Pelvis CT 01/03/25 12:57 IMPRESSION: No acute intra-abdominal process. No intra-abdominal hematomas. COMMENTS: Consistent with the [employer]'s Incidental Findings Committee white paper (J Am Tio Radiol 2018): Any incidental renal lesion less than 1 cm or classified as too small to characterize, or any incidental cystic renal lesion characterized as simple-appearing, is likely benign. No follow-up imaging is recommended for these lesions per consensus recommendations based on imaging criteria. Chest X-Ray 01/03/25 12:57 IMPRESSION: No acute cardiopulmonary process. Laboratory Results WBC 8.18 10^3/uL (3.29-11.43) 01/03/25 09:46 RBC 3.87 10^6/uL (3.85-5.65) 01/03/25 09:46 Hgb 11.80 g/dL (11.27-16.99) 01/03/25 09:46 Hct 36.5 % (36-47) 01/03/25 09:46 MCV 94.3 fl (85-98) 01/03/25 09:46 MCH 30.5 pg (27-33) 01/03/25 09:46 MCHC 32.3 g/dL (30-55) 01/03/25 09:46 RDW 13.8 % (12.1-15.1) 01/03/25 09:46 Plt Count 135 10^3/cmm (157-399) L 01/03/25 09:46 MPV 8.7 fL (7.4-10.4) 01/03/25 09:46 Neut % (Auto) 80.3 % 01/03/25 09:46 Lymph % (Auto) 14.8 % 01/03/25 09:46 [place] % (Auto) 4.2 % 01/03/25 09:46 Eos % (Auto) 0.2 % 01/03/25 09:46 Baso % (Auto) 0.1 % 01/03/25 09:46 Neut # (Auto) 6.57 10^3/uL (1.8-7.7) 01/03/25 09:46 Lymph # (Auto) 1.2 10^3/uL (0.8-4.8) 01/03/25 09:46 [place] # (Auto) 0.3 10^3/uL (0.2-0.9) 01/03/25 09:46 Eos # (Auto) 0.0 10^3/uL (0.0-0.8) 01/03/25 09:46 Baso # (Auto) 0.0 10^3/uL (0.0-0.1) 01/03/25 09:46 Nucleated RBC % (auto) 0 % 01/03/25 09:46 Nucleated RBCs # 0.0 /100WBC 01/03/25 09:46 Sodium 134 mmol/L (136-145) L 01/03/25 09:46 Potassium 3.6 mmol/L (3.5-5.1) 01/03/25 09:46 Chloride 97 mmol/L (98-107) L 01/03/25 09:46 Carbon Dioxide 27 mmol/L (22-29) 01/03/25 09:46 Anion Gap 13.6 (5-19) 01/03/25 09:46 BUN 30 mg/dL (8-23) H 01/03/25 09:46 Creatinine 1.3 mg/dL (0.5-0.9) H 01/03/25 09:46 GFR Calculation Not Reportable 01/03/25 09:46 Glucose 163 mg/dL (65-115) H 01/03/25 09:46 POC Glucose 111 mg/dL (70-110) H 01/03/25 17:11 Calculated Osmolality 288 mOsm/kg (285-295) 01/03/25 09:46 Lactic Acid 1.1 mmol/L (0.5-2.2) 01/03/25 09:46 Calcium 9.2 mg/dL (8.5-10.5) 01/03/25 09:46 Total Bilirubin 0.5 mg/dL (0.15-1.2) 01/03/25 09:46 AST 85 U/L (0-32) H 01/03/25 09:46 ALT 35 U/L (0-33) H 01/03/25 09:46 Alkaline Phosphatase 76 U/L (35-105) 01/03/25 09:46 Total Protein 6.2 g/dL (6.6-8.7) L 01/03/25 09:46 Albumin 3.1 g/dL (3.5-5.2) L 01/03/25 09:46 Globulin 3.1 g/dL (1.3-4.6) 01/03/25 09:46 A&P Assessment and plan (1) Hypoglycemia: Patient presenting to the emergency room today with recurrent hypoglycemia. Review of MAR shows doses of both 22 units every afternoon and 18 units subcutaneously daily listed on her MAR for Lantus. Will hold all insulin products going forward. Review of recent HbA1c from December 19, 2024 shows an HbA1c of only 6.3. She had hypoglycemia on CMP from this date with a blood glucose of 35. Patient is not a type I diabetic. Had an A1c of 6.3, I do not think patient would need insulin resumed at the time of discharge Currently she has received dextrose boluses in the emergency room. Will start D D10 infusion at 50 cc an hour. Gentle hydration keeping in mind her history of CHF and the fact that she is on Lasix every day. For now we will hold Lasix as she is clinically appearing to be dehydrated. (2) Acute UTI: UA positive Afebrile Patient is unable to communicate if she has any urinary symptoms as she is nonverbal at her baseline. Start ceftriaxone 1 g IV every 24 hours empirically. Await urine culture. Noted to be retaining 250 cc of urine on bladder scan. Will place Guerrero catheter to help relieve the obstruction. (3) Urinary retention: Guerrero catheter placed. (4) Sinus bradycardia: Sinus bradycardia with first-degree AV block. Similar sinus bradycardia noted on EKG from January 01, 2025. No acute ST-T wave changes. Will hold carvedilol while she is in the hospital and will resume if parameters allow when nearing discharge. Currently heart rate is ranging between 45-56. Blood pressure is well-maintained. (5) GI bleeding: Patient was noted to have dried blood around her mouth and neck earlier this morning by residential staff. She is noted to have an ulcer over the right side of her tongue. Potentially may have had a tongue bite which may have resulted in the bleeding. Hemoglobin is currently stable at 11.8 Patient has a history of bleeding gastric ulcer a few years ago. It appears she may have been on NSAIDs at that time. Discussed with the son that at this time it is difficult to a certain where the bleeding may have come from, however given the ulcer I see on her tongue most likely to be the source. Son would like to avoid procedures as much as possible Will plan to check a fecal occult blood test, serial H&H. If hemoglobin is downtrending along with FOBT positive, may need further endoscopic evaluation. For now closely monitor. Magic mouthwash as needed for oral ulceration. Hold Plavix for now Protonix 40 mg IV every 12 hours until hemoglobin trend can be established. PDMP PDMP Reviewed: Not Reviewed Attestations Medical Necessity Statement*: Anticipate greater than 2 midnight stay for urinary retention, UTI needing IV antibiotics, hypoglycemia, needing continuous D10 infusion sinus bradycardia, need to monitor off insulin and beta-blockers, possible GI bleed Coding Level of Care Code Acute Code for Chg Fwd High MDM includes number and complexity of problems actively addressed during encounter, amount and/or complexity of data reviewed/ordered and described risk of complication, morbidity or mortality of management as documented Diagnoses Hypoglycemia E16.2 Acute UTI N39.0 Urinary retention R33.9 Sinus bradycardia R00.1 GI bleeding K92.2
[2025-01-03] MEDS: dextrose 10% 1,000 ML 50 ML IV (18:37)
[2025-01-03] MEDS: thiamine 100 mg/mL 2mL SDV IM (19:10)
[2025-01-03] MEDS: pantoprazole 40 mg SDV IVP (19:10)
[2025-01-03] MEDS: cefTRIAXone 1,000 mg SDV 1000 MG IVP (19:13)
[2025-01-03 19:25] LABS: Thyroid Stimulating Hormone 4.71 uIU/mL (0.27-4.20)
[2025-01-03 21:16] LABS: Glucose Point of Care 86 mg/dL (70-110)
[2025-01-03 21:23] LABS: Hematocrit 31.9 % (36-47)
[2025-01-04] VITALS (7 sets, daily range): BP systolic 105–154; BP diastolic 52–72; PULSE 53–72; RESP 14–20; TEMP 36.4–37.1; O2SAT 93–100
[2025-01-04 00:15] LABS: Glucose Point of Care 98 mg/dL (70-110)
[2025-01-04 03:02] LABS: Basophils % 0.2 %; Eosinophils # 0.1 10^3/uL (0.0-0.8); Eosinophils % 1.2 %; Hematocrit 30.3 % (36-47); Lymphocytes # 1.5 10^3/uL (0.8-4.8); Lymphocytes % 25.8 %; Mean Corpuscular Hemoglobin 31.3 pg (27-33); Mean Corpuscular Volume 94.7 fl (85-98); Mean Platelet Volume 9.3 fL (7.4-10.4); Monocytes # 0.6 10^3/uL (0.2-0.9); Monocytes % 9.4 %; Neutrophils # 3.75 10^3/uL (1.8-7.7); Neutrophils % 63.1 %; Nucleated Red Blood Cells % 0 %; Platelet Count 121 10^3/cmm (157-399); Red Cell Distribution Width 13.9 % (12.1-15.1); White Blood Count 5.94 10^3/uL (3.29-11.43)
[2025-01-04 03:31] LABS: Alanine Aminotransferase 29 U/L (0-33); Albumin Level 2.7 g/dL (3.5-5.2); Alkaline Phosphatase 64 U/L (35-105); Anion Gap 12.2 (5-19); Aspartate Amino Transferase 66 U/L (0-32); Blood Urea Nitrogen 23 mg/dL (8-23); Calcium 8.6 mg/dL (8.5-10.5); Carbon Dioxide 27 mmol/L (22-29); Chloride 102 mmol/L (98-107); Creatinine Clr Calc Pharmacy 28.0777; Globulin 2.5 g/dL (1.3-4.6); Glucose 111 mg/dL (65-115); Osmolality Calculated 290 mOsm/kg (285-295); Potassium 3.2 mmol/L (3.5-5.1); Sodium 138 mmol/L (136-145); Total Bilirubin 0.3 mg/dL (0.15-1.2); Total Protein 5.2 g/dL (6.6-8.7)
[2025-01-04] MEDS: pantoprazole 40 mg SDV IVP ×2 (06:10→16:55)
[2025-01-04] MEDS: levothyroxine 25 mcg Tablet PO (06:10)
[2025-01-04 06:52] LABS: Glucose Point of Care 136 mg/dL (70-110)
[2025-01-04] MEDS: thiamine 100 mg Tablet PO (08:52)
[2025-01-04] MEDS: escitalopram 10 mg Tablet 20 MG PO (08:52)
--- NOTE | 2025-01-04 09:08 | PC.CHAP ---
Pastoral Care Encounter/Spiritual Assessment Type of Contact [] Declined machine dyer visit [] Patient/Family/Request visit [] Outpatient visit [] Follow-up visit [] Physician referral [] Code/Alert [x] Routine visit [] Staff referral [] Actively dying [] Patient sleeping [] Family support [] [] Out of room [] Palliative care [] [x] Receiving care in room [] Pre-surgical visit [] Trauma [] Long length of stay [] ICU visit [] Other: Relational/Emotional Strength [] Patient feels connected with others/family/visitors/staff [] Distress [] Loneliness/isolation [] Abandonment Spirituality of Patient [] Person of Swathi [] Attends [employer]itan of their Swathi [] Believes in Prayer [] Reads Bible or Anabaptism materials [] There are Spiritual issues to be addressed Cupola Liner Helper Interventions [x] Prayer [] Active listening [] Non-anxious presence [] Spiritual/emotional support [] Crisis/trauma care [] Spiritual counseling [] Bereavement support [] Provided bereavement packet [] Provided Bible/devotional materials [] Provided toy/stuffed animal, coloring book to patient or family member [] Provided Communion [] Anointing/[place] [] Salvation [] Completed spiritual assessment [] Other: Impact on Illness or Injury [] Angry [] Fearful [] Anxious [] Often cries [] Exhaustion [] Unable to work [] Unable to attend spiritism [] Unable to walk/stand [] Unable to read [] Unable to drive [] Unable to eat/drink [] Unable to sleep [] Unable to be with family [] Patient intubated [] Other: Summary Time spent with patient
[2025-01-04 11:30] LABS: Glucose Point of Care 144 mg/dL (70-110)
[2025-01-04] MEDS: dextrose 10% 1,000 ML 50 ML IV (11:32)
--- NOTE | 2025-01-04 13:57 | P.PN_ITS ---
Subjective 2 Subjective: Seen today. Had a long discussion with patient's and over the forward goal for patient's management plan and reason for hospital admission. Hemoglobin A1c is 6.0. We decided that patient will not go home on any kind of insulin or oral antihyperglycemic's. Currently she is on a D10 drip. Patient's nurse from nursing facility is present at bedside who states that patient is at her baseline at this time. She is awake alert however will not speak. She is currently NPO. Speech therapy will be seeing her and we will restart her diet. Discussed with RN as well. Case management also present during encounter this morning. Patient was signed states that he is not interested in pursuing an EGD at this time. FOBT negative. Vitals/I&O/Wt Last Vital Signs Temp 98.6 F 01/04/25 12:00 Pulse 53 L 01/04/25 12:00 Resp 20 H 01/04/25 12:00 BP 154/71 01/04/25 12:00 Pulse Ox 100 01/04/25 12:00 O2 Del Method Room Air 01/04/25 12:00 01/03/25 01/04/25 01/04/25 22:59 06:59 14:59 Intake Total 500 / 500 845.833 / 845.833 Balance 500 / 500 845.833 / 845.833 Weight last 48 hrs Weight 56.291 kg Weight 54.885 kg Physical Exam 2 Narrative: General: Elderly frail-appearing woman laying in bed in no acute distress at this time. HEENT: PERRLA, pupils bilaterally equal and reactive, pallors not present Chest: Normal vesicular breath sounds, no added sounds, equal good air entry bilaterally CVS: S1-S2 regular, no murmurs, no tachycardia, no gallops, no rubs Abdomen: Soft, nontender, no organomegaly, bowel sounds present Neuro: Contractures affecting upper and lower extremities. Data 01/04/25 02:08 01/04/25 02:08 Micro: Microbiology 01/03/25 21:20 Occult Blood (FIT) - Final Stool - Stool Aspirate A&P Assessment and plan (1) Hypoglycemia: Patient presenting to the emergency room today with recurrent hypoglycemia. Review of MAR shows doses of both 22 units every afternoon and 18 units subcutaneously daily listed on her MAR for Lantus. Will hold all insulin products going forward. Review of recent HbA1c from December 19, 2024 shows an HbA1c of only 6.3. She had hypoglycemia on CMP from this date with a blood glucose of 35. Patient is not a type I diabetic. Had an A1c of 6.3, I do not think patient would need insulin resumed at the time of discharge Currently she has received dextrose boluses in the emergency room. Will start D D10 infusion at 50 cc an hour. Gentle hydration keeping in mind her history of CHF and the fact that she is on Lasix every day. For now we will hold Lasix as she is clinically appearing to be dehydrated. (2) Acute UTI: UA positive Afebrile Patient is unable to communicate if she has any urinary symptoms as she is nonverbal at her baseline. Start ceftriaxone 1 g IV every 24 hours empirically. Await urine culture. Noted to be retaining 250 cc of urine on bladder scan. Will place Guerrero catheter to help relieve the obstruction. (3) Urinary retention: Guerrero catheter placed. (4) Sinus bradycardia: Sinus bradycardia with first-degree AV block. Similar sinus bradycardia noted on EKG from January 01, 2025. No acute ST-T wave changes. Will hold carvedilol while she is in the hospital and will resume if parameters allow when nearing discharge. Currently heart rate is ranging between 45-56. Blood pressure is well- maintained. (5) GI bleeding: Patient was noted to have dried blood around her mouth and neck earlier this morning by skilled nursing staff. She is noted to have an ulcer over the right side of her tongue. Potentially may have had a tongue bite which may have resulted in the bleeding. Hemoglobin is currently stable at 11.8 Patient has a history of bleeding gastric ulcer a few years ago. It appears she may have been on NSAIDs at that time. Discussed with the son that at this time it is difficult to a certain where the bleeding may have come from, however given the ulcer I see on her tongue most likely to be the source. Son would like to avoid procedures as much as possible Will plan to check a fecal occult blood test, serial H&H. If hemoglobin is downtrending along with FOBT positive, may need further endoscopic evaluation. For now closely monitor. Magic mouthwash as needed for oral ulceration. Hold Plavix for now Protonix 40 mg IV every 12 hours until hemoglobin trend can be established. Plan 01/04/2025 Patient was able to drink water with a straw yesterday when presented with that. Check speech therapy evaluation. FOBT is negative. Hemoglobin 10.0. At admission was 11.8. Patient currently on a D10 drip. Will check blood sugars every 6 hours. Will slowly wean off drip. Continue Protonix 40 IV twice daily. Continue to hold clopidogrel. Bleeding most likely from tongue. No report of further bleeding overnight. Potassium 3.2, order 40 oral x 1. Pattern is at baseline Restart diet if does well with speech evaluation. PDMP PDMP Reviewed: Not Reviewed Attestations 2 Medical Necessity Statement*: Anticipate greater than 2 midnight stay for urinary retention, UTI needing IV antibiotics, hypoglycemia, needing continuous D10 infusion sinus bradycardia, need to monitor off insulin and beta-blockers, possible GI bleed Diagnoses Hypoglycemia E16.2 Acute UTI N39.0 Urinary retention R33.9 Sinus bradycardia R00.1 GI bleeding K92.2
[2025-01-04 16:46] LABS: Glucose Point of Care 220 mg/dL (70-110)
[2025-01-04] MEDS: cefTRIAXone 1,000 mg SDV 1000 MG IVP (16:55)
[2025-01-04] MEDS: ATORVASTATIN 10 MG TABLET PO (16:55)
[2025-01-05] VITALS: BP 160/63; PULSE 90; RESP 16; TEMP 36.9; O2SAT 92
[2025-01-05 03:46] VITALS: BP 148/60; PULSE 86; RESP 17; TEMP 36.6; O2SAT 90
[2025-01-05] MEDS: levothyroxine 25 mcg Tablet PO (05:17)
[2025-01-05] MEDS: pantoprazole 40 mg SDV IVP (05:18)
[2025-01-05 05:43] LABS: Glucose Point of Care 194 mg/dL (70-110)
[2025-01-05 05:45] LABS: Basophils % 0.2 %; Eosinophils # 0.1 10^3/uL (0.0-0.8); Eosinophils % 2.2 %; Hematocrit 29.6 % (36-47); Lymphocytes # 1.6 10^3/uL (0.8-4.8); Lymphocytes % 30.7 %; Mean Corpuscular HGB Conc 33.4 g/dL (30-55); Mean Corpuscular Hemoglobin 30.9 pg (27-33); Mean Corpuscular Volume 92.5 fl (85-98); Mean Platelet Volume 8.7 fL (7.4-10.4); Monocytes # 0.5 10^3/uL (0.2-0.9); Monocytes % 9.3 %; Neutrophils # 2.89 10^3/uL (1.8-7.7); Neutrophils % 57.2 %; Nucleated Red Blood Cells % 0 %; Platelet Count 116 10^3/cmm (157-399); Red Cell Distribution Width 13.7 % (12.1-15.1); White Blood Count 5.05 10^3/uL (3.29-11.43)
[2025-01-05 06:00] VITALS: BMI 25.1
[2025-01-05 06:08] LABS: Anion Gap 11.4 (5-19); Blood Urea Nitrogen 14 mg/dL (8-23); Carbon Dioxide 27 mmol/L (22-29); Chloride 101 mmol/L (98-107); Creatinine Clr Calc Pharmacy 31.4149; Glucose 196 mg/dL (65-115); Magnesium 1.6 mg/dL (1.7-2.3); Osmolality Calculated 288 mOsm/kg (285-295); Phosphorus 1.7 mg/dL (2.5-4.5); Potassium 3.4 mmol/L (3.5-5.1); Sodium 136 mmol/L (136-145)
[2025-01-05 08:00] VITALS: BP 147/74; PULSE 59; RESP 16; TEMP 36.6; O2SAT 96
[2025-01-05] MEDS: escitalopram 10 mg Tablet 20 MG PO (09:11)
[2025-01-05] MEDS: thiamine 100 mg Tablet PO (09:11)
--- NOTE | 2025-01-05 09:18 | PC.CHAP ---
Pastoral Care Encounter/Spiritual Assessment Type of Contact [] Declined information management officer visit [] Patient/Family/Request visit [] Outpatient visit [] Follow-up visit [] Physician referral [] Code/Alert [x] Routine visit [] Staff referral [] Actively dying [] Patient sleeping [] Family support [] [] Out of room [] Palliative care [] [] Receiving care in room [] Pre-surgical visit [] Trauma [] Long length of stay [] ICU visit [] Other: Relational/Emotional Strength [x] Patient feels connected with others/family/visitors/staff [] Distress [] Loneliness/isolation [] Abandonment Spirituality of Patient [x] Person of Swathi [] Attends [employer] of their Swathi [x] Believes in Prayer [] Reads Bible or Adventist materials [] There are Spiritual issues to be addressed Managed Care Provider Interventions [x] Prayer [x] Active listening [] Non-anxious presence [x] Spiritual/emotional support [] Crisis/trauma care [] Spiritual counseling [] Bereavement support [] Provided bereavement packet [] Provided Bible/devotional materials [] Provided toy/stuffed animal, coloring book to patient or family member [] Provided Communion [] Anointing/[place] [] Salvation [x] Completed spiritual assessment [] Other: Impact on Illness or Injury [] Angry [] Fearful [] Anxious [] Often cries [] Exhaustion [] Unable to work [] Unable to attend confucianist [] Unable to walk/stand [] Unable to read [] Unable to drive [] Unable to eat/drink [] Unable to sleep [] Unable to be with family [] Patient intubated [] Other: Summary Time spent with patient 5 min
[2025-01-05 11:25] VITALS: BP 132/72; PULSE 75; RESP 76; TEMP 36.8; O2SAT 98
[2025-01-05 11:33] LABS: Glucose Point of Care 160 mg/dL (70-110)
--- NOTE | 2025-01-05 12:24 | P.DS_ITS ---
Discharge Providers Date of Admission: 01/03/25 18:43 Date of Discharge: January 05, 2025 Attending Provider at Admission: Christiane Clarke MD Attending Provider at Discharge: Freddie Aguilera MD Primary Care Provider: Lex Pan MD Diagnoses at Discharge Discharge Diagnosis (1) Hypoglycemia: Status: Acute (2) Acute UTI: Status: Acute (3) Urinary retention: Status: Acute (4) Sinus bradycardia: Status: Acute (5) GI bleeding: Status: Acute Reason for Visit Reason for Visit: [facility] Hospital Course Hospital Course Sara Almeida is an 89-year-old female who presented from nursing facility with hypoglycemia, found to have insulin induced hypoglycemia, acute complicated urinary tract infection with urinary retention, dysphagia, sinus bradycardia, and suspected GI bleed. Her insulin regiment was discontinued. Prior physician discussed diabetes management with son and they made the determination to end all insulin and oral diabetes medications as her A1c is well-controlled. For her dysphagia, she was evaluated by speech therapy and placed to modified diet which she tolerated well. Recommendations to continue this diet at the facility. She is found to have sinus bradycardia for which beta-jennifer was held. She was on a very high beta-jennifer dose prior to presentation. Heart rate recovered. She will be discharged on very low-dose beta-jennifer as to prevent beta-jennifer withdrawal. Her losartan was decreased. Recommend continue to monitor heart rate and blood pressure at facility. She was found to have acute complicated urinary tract infection treated with ceftriaxone and transition to cefdinir at discharge. She was noted to have mild thrombocytopenia while on Plavix. She has a history of stroke and there is concern for possible GI bleed. Family declined workup for GI bleed to prior provider. She will be continued on her PPI. Recommend holding Plavix for 7 days to allow for recovery. Her mentation was found to be at baseline on day of discharge. She will discharge back to facility in stable condition. Would recommend consideration of hospice evaluation at facility if consistent with family's wishes. Physical Exam Narrative: General: Patient is awake. Frail-appearing. Head: Atraumatic. Neck: No JVD. Cardiovascular: RRR. No gallops. No murmurs. Lungs: Clear to auscultation, no use of accessory muscles, no crackles or wheezes. Skin: No jaundice. No rashes. Abdomen: Normal bowel sounds, abdomen soft and nontender. Extremities: No cyanosis or clubbing. Musculoskeletal: No swollen or erythematous joints. Neurological: Moves all 4 extremities. No myoclonus. Discharge Data Studies Completed and Pending Completed Studies During Hospitalization Category Date Time Status CT abdomen pelvis w con* [id number] Urgent Cat Scan 01/03/25 12:[address] head wo con* [id number] Stat Cat Scan 01/03/25 09:41 Completed XR chest 1V portable [id number] Stat Exams 01/03/25 12:57 Completed Radiology Impressions Head CT 01/03/25 09:41 IMPRESSION: No large territorial infarct or intracranial bleed. Abdomen/Pelvis CT 01/03/25 12:57 IMPRESSION: No acute intra-abdominal process. No intra-abdominal hematomas. COMMENTS: Consistent with the [employer]'s Incidental Findings Committee white paper (J Am Tio Radiol 2018): Any incidental renal lesion less than 1 cm or classified as too small to characterize, or any incidental cystic renal lesion characterized as simple-appearing, is likely benign. No follow-up imaging is recommended for these lesions per consensus recommendations based on imaging criteria. Chest X-Ray 01/03/25 12:57 IMPRESSION: No acute cardiopulmonary process. Laboratory Results WBC 5.05 10^3/uL (3.29-11.43) 01/05/25 05:15 RBC 3.20 10^6/uL (3.85-5.65) L 01/05/25 05:15 Hgb 9.90 g/dL (11.27-16.99) L 01/05/25 05:15 Hct 29.6 % (36-47) L 01/05/25 05:15 MCV 92.5 fl (85-98) 01/05/25 05:15 MCH 30.9 pg (27-33) 01/05/25 05:15 MCHC 33.4 g/dL (30-55) 01/05/25 05:15 RDW 13.7 % (12.1-15.1) 01/05/25 05:15 Plt Count 116 10^3/cmm (157-399) L 01/05/25 05:15 MPV 8.7 fL (7.4-10.4) 01/05/25 05:15 Neut % (Auto) 57.2 % 01/05/25 05:15 Lymph % (Auto) 30.7 % 01/05/25 05:15 [place] % (Auto) 9.3 % 01/05/25 05:15 Eos % (Auto) 2.2 % 01/05/25 05:15 Baso % (Auto) 0.2 % 01/05/25 05:15 Neut # (Auto) 2.89 10^3/uL (1.8-7.7) 01/05/25 05:15 Lymph # (Auto) 1.6 10^3/uL (0.8-4.8) 01/05/25 05:15 [place] # (Auto) 0.5 10^3/uL (0.2-0.9) 01/05/25 05:15 Eos # (Auto) 0.1 10^3/uL (0.0-0.8) 01/05/25 05:15 Baso # (Auto) 0.0 10^3/uL (0.0-0.1) 01/05/25 05:15 Nucleated RBC % (auto) 0 % 01/05/25 05:15 Nucleated RBCs # 0.0 /100WBC 01/05/25 05:15 Sodium 136 mmol/L (136-145) 01/05/25 05:15 Potassium 3.4 mmol/L (3.5-5.1) L 01/05/25 05:15 Chloride 101 mmol/L (98-107) 01/05/25 05:15 Carbon Dioxide 27 mmol/L (22-29) 01/05/25 05:15 Anion Gap 11.4 (5-19) 01/05/25 05:15 BUN 14 mg/dL (8-23) 01/05/25 05:15 Creatinine 1.1 mg/dL (0.5-0.9) H 01/05/25 05:15 GFR Calculation Not Reportable 01/05/25 05:15 Glucose 196 mg/dL (65-115) H 01/05/25 05:15 POC Glucose 160 mg/dL (70-110) H 01/05/25 11:14 Calculated Osmolality 288 mOsm/kg (285-295) 01/05/25 05:15 Lactic Acid 1.1 mmol/L (0.5-2.2) 01/03/25 09:46 Calcium 8.0 mg/dL (8.5-10.5) L 01/05/25 05:15 Phosphorus 1.7 mg/dL (2.5-4.5) L 01/05/25 05:15 Magnesium 1.6 mg/dL (1.7-2.3) L 01/05/25 05:15 Total Bilirubin 0.3 mg/dL (0.15-1.2) 01/04/25 02:08 AST 66 U/L (0-32) H 01/04/25 02:08 ALT 29 U/L (0-33) 01/04/25 02:08 Alkaline Phosphatase 64 U/L (35-105) 01/04/25 02:08 Total Protein 5.2 g/dL (6.6-8.7) L 01/04/25 02:08 Albumin 2.7 g/dL (3.5-5.2) L 01/04/25 02:08 Globulin 2.5 g/dL (1.3-4.6) 01/04/25 02:08 TSH 4.71 uIU/mL (0.27-4.20) H 01/03/25 09:46 Vitals Last Vital Signs Temp 98.3 F 01/05/25 11:25 Pulse 75 01/05/25 11:25 Resp 76 H 01/05/25 11:25 BP 132/72 01/05/25 11:25 Pulse Ox 98 01/05/25 11:25 O2 Del Method Room Air 01/05/25 11:25 Discharge Plan Discharge Patient Disposition: Home Condition: Stable Prescriptions: New metoprolol tartrate 25 mg tablet 25 mg PO BID Qty: 60 0RF cefdinir 300 mg capsule 300 mg PO BID 7 Days Qty: 14 0RF Continued cetirizine 10 mg Tablet 10 mg PO DAILY hydralazine 25 mg Tablet 25 mg PO TID levothyroxine 25 mcg Tablet 25 mcg PO DAILY pravastatin 10 mg Tablet 10 mg PO QPM pantoprazole 40 mg Tablet,Delayed Release (Dr/Ec) 40 mg PO DAILY furosemide 20 mg Tablet 20 mg PO DAILY escitalopram oxalate 20 mg Tablet 20 mg PO DAILY Effer-K 10 mEq Tablet, Effervescent 10 meq PO BID magnesium oxide 400 mg magnesium Tablet 400 mg PO BID Changed losartan 50 mg Tablet 25 mg PO DAILY 30 Days Qty: 0 0RF Held clopidogrel 75 mg Tablet 75 mg PO DAILY Hold Instructions: Resume on 01/11/25. Discontinued carvedilol 12.5 mg tablet 12.5 mg PO BID Qty: 60 0RF Rx Instructions: must administer with a meal/food insulin glargine [Lantus U-100 Insulin] 100 unit/mL solution 18 unit SUBCUT DAILY Qty: 10 0RF cephalexin 250 mg capsule 250 mg PO BID 7 Days Qty: 14 0RF carvedilol 25 mg Tablet 25 mg PO BID Rx Instructions: must administer with a meal/food insulin glargine [Lantus Solostar U-100 Insulin] 100 unit/mL (3 mL) Insulin Pen 22 unit SUBCUT QPM Discharge Orders: Discharge Order (Routine); Ordered 01/05/25 Ordered By: Freddie Aguilera Referrals: Lex Pan MD [Primary Care Provider] - 4-7 days Discharge Activity: Resume usual activity Patient Instructions: Metoprolol (By mouth), Cefdinir (By mouth), Opioid Safety Activity Restrictions/Additional Instructions: Take medications as prescribed. Monitor heart rate and blood pressure. Recommend keeping log and following up with primary provider. Follow modified dysphagia level 4 diet consisting of extremely thick/pur?ed food with mildly thickened liquids. Discharge Attestations Time Spent in Discharge Care*: greater than 30 min Quality Metrics Clinical Quality Measures [ No reported AMI, CVA or VTE this stay] Coding Level of Care Code Acute Code for Chg Fwd Diagnoses Hypoglycemia E16.2 Acute UTI N39.0 Urinary retention R33.9 Sinus bradycardia R00.1 GI bleeding K92.2
--- NOTE | 2025-01-05 13:02 | PC.NURSE ---
Report called to [facility]. IVs out. Cardiac monitoring off. PCS form completed. EMS notified of need to transfer. Out of hospital DNR signed by Dr. Aguilera.
[2025-01-05 14:07] VITALS: BP 132/72; PULSE 75; RESP 16; TEMP 36.8; O2SAT 98
== END 2025-01-05 14:07 | disposition intermediate care facility (04) | DRG 638 ==
LOC: ER 12:26 → MEDSURG 15:24
PROVIDERS: Internal Medicine; Admitting Provider Student in an Organized Health Care Education/Training Program; Emergency Provider Emergency Medicine; PCP Family Medicine; Visit Provider Internal Medicine
DX: E11.649 Type 2 diabetes mellitus with hypoglycemia without coma (principal); G93.40 Encephalopathy, unspecified; K92.2 Gastrointestinal hemorrhage, unspecified; N39.0 Urinary tract infection, site not specified; I69.354 Hemiplegia and hemiparesis following cerebral infarction affecting left non-dominant side; R33.9 Retention of urine, unspecified; R00.1 Bradycardia, unspecified; R13.10 Dysphagia, unspecified; D69.6 Thrombocytopenia, unspecified; Z99.3 Dependence on wheelchair
CPT/HCPCS: 36415; 36416; 70450; 71045; 74177; 80048; 80053; 82274; 82962; 83605; 83735; 84100; 84443; 85014; 85018; 85025; 92610; 93005; 96372; 99285; G0378; J0696; J2470; J3411; J7042; J9999

== ENCOUNTER 2025-01-11 23:49 | Emergency (ER) | payer MEDICARE, OTHER, SELFPAY ==
--- NOTE | 2025-01-11 23:56 | CTR_ITS ---
PROCEDURE INFORMATION: Exam: CT Head Without Contrast Exam date and time: 01/12/2025 12:23 AM Age: 89 years old Clinical indication: Injury or trauma; Fall; Blunt trauma (contusions or hematomas); Additional info: Fall, head injury TECHNIQUE: Imaging protocol: Computed tomography of the head without contrast. Radiation optimization: All CT scans at this facility use at least one of these dose optimization techniques: automated exposure control; mA and/or kV adjustment per patient size (includes targeted exams where dose is matched to clinical indication); or iterative reconstruction. COMPARISON: CT head wo con* [id number] 01/03/2025 8:48 AM RADIATION DOSE METRICS: Total DLP (mGy-cm): 1136.28 FINDINGS: Brain: Right MCA territory encephalomalacia from remote infarct. No hemorrhage. Cerebral ventricles: No ventriculomegaly. Paranasal sinuses: Visualized sinuses are unremarkable. No fluid levels. Mastoid air cells: Visualized mastoid air cells are well aerated. Bones: Right nasal bone fracture of unknown chronicity, likely chronic. Soft tissues: Unremarkable. CT/CT head wo con* [id number] IMPRESSION: No acute intracranial abnormality.
--- NOTE | 2025-01-11 23:56 | XRR_ITS ---
PROCEDURE INFORMATION: Exam: XR Left Shoulder Exam date and time: 01/12/2025 12:06 AM Age: 89 years old Clinical indication: Injury or trauma; Fall; Dislocation; Severity not specified; Shoulder girdle; Left TECHNIQUE: Imaging protocol: Radiologic exam of the left shoulder. Views: 2 or more views. COMPARISON: CR (CHEST, ) 01/03/2025 1:05 PM FINDINGS: Bones/joints: Left anterior shoulder dislocation. No definite acute fracture/osseous Bankart lesion. Soft tissues: Normal. XR/XR shoulder LT min 2V* [id number] IMPRESSION: 1. Left anterior shoulder dislocation. 2. No definite acute fracture/osseous Bankart lesion.
[2025-01-11 23:58] VITALS: BP 177/60; PULSE 52; RESP 16; TEMP 36.6; O2SAT 100
[2025-01-12] VITALS (12 sets, daily range): BP systolic 118–179; BP diastolic 45–91; PULSE 44–53; RESP 11–18; O2SAT 98–100
--- NOTE | 2025-01-12 00:06 | W.ED.FALL ---
HPI - Fall General: Chief Complaint: Fall Stated Complaint: fall , left arm injury Time Seen by Provider: 01/11/25 23:53 History of Present Illness: 89-year-old female who presents the emergency room by ambulance after possible fall. I think she fell out of her wheelchair. 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 She has dementia. Apparently she will answer questions sometimes. At this time she will not open her eyes or answer questions. There can about her left shoulder and possible head injury. EMS reports DNR CODE STATUS. She is on Plavix. Related Data Home Medications ?Medication ?Instructions ?Recorded ?Confirmed cetirizine 10 mg tablet 10 mg PO DAILY 01/03/25 01/03/25 clopidogrel 75 mg tablet 75 mg PO DAILY 01/03/25 01/03/25 Held on 01/05/25. Instructions: Resume on 01/11/25. escitalopram oxalate 20 mg tablet 20 mg PO DAILY 01/03/25 01/03/25 furosemide 20 mg tablet 20 mg PO DAILY 01/03/25 01/03/25 hydralazine 25 mg tablet 25 mg PO TID 01/03/25 01/03/25 levothyroxine 25 mcg tablet 25 mcg PO DAILY 01/03/25 01/03/25 magnesium oxide 400 mg PO BID 01/03/25 01/03/25 pantoprazole 40 mg tablet,delayed 40 mg PO DAILY 01/03/25 01/03/25 release potassium bicarbonate-citric acid 10 meq PO BID 01/03/25 01/03/25 10 mEq effervescent tablet (Effer-K) pravastatin 10 mg tablet 10 mg PO QPM 01/03/25 01/03/25 Previous Rx's ?Medication ?Instructions ?Recorded losartan 50 mg tablet 25 mg (1/2 x 50 mg) PO DAILY 30 01/05/25 days #0 tabs metoprolol tartrate 25 mg tablet 25 mg PO BID #60 tabs 01/05/25 Allergies Allergy/AdvReac Type Severity Reaction Status Date / Time ciprofloxacin (From Cipro) Allergy Unknown Verified 01/04/25 11:40 Penicillins Allergy Unknown Verified 01/04/25 11:40 propoxyphene (From Darvon) Allergy Unknown Verified 01/04/25 11:40 Sulfa (Sulfonamide Allergy Unknown Verified 01/04/25 11:40 Antibiotics) Review of Systems General: Reports: ROS unobtainable due to medical condition [facility] ED PFSH: Medical History (Updated 01/12/25 @ 04:31 by Angelika Medrano MD) Urinary retention Acute UTI Physical Exam Narrative: EXAM NARRATIVE: General: responds minimally to painful stimuli. Skin: Warm, dry Head: Normocephalic, atraumatic. Neck: Supple, trachea midline. Eye: Extraocular movements are intact. Ears, nose, mouth and throat: Dry oral mucosa. Cardiovascular: Regular rate and rhythm, Normal peripheral perfusion. Respiratory: Lungs are clear to auscultation, respirations are non-labored, breath sounds are equal, Symmetrical chest wall expansion. Gastrointestinal: Soft, Non distended Musculoskeletal: no deformity. Neurological: Not Alert and oriented, contracted left leg and arm. Psychiatric: unable to assess. Course Vital Signs: Vital signs: Vital Signs Temperature 97.8 F 01/11/25 23:58 Pulse Rate 49 L 01/12/25 04:30 Respiratory Rate 12 01/12/25 04:30 Blood Pressure 153/55 01/12/25 04:30 Pulse Oximetry 100 01/12/25 04:30 Oxygen Delivery Me thod Room Air 01/12/25 00:02 MDM - Fall Medical Decision Making CT head: Large area of encephalomalacia that is chronic. No acute intracranial process. no intracranial hemorrhage, no evidence of infarct. no evidence of acute fracture.This was reviewed and interpreted by myself the ER physician Shoulder x-ray: Left anterior shoulder dislocation: This was present on a chest x-ray about 10 days ago. This was reviewed and interpreted by myself the emergency room physician. I also reviewed the radiology report. Consultation I spoke with Dr. Zhao who is on-call for orthopedics. He recommends a CT scan. After the CT scan he recommended to attempt to place the shoulder back and but feels like it likely will come back out. Procedural sedation Time: 0415 am Confirmed: Patient and procedure correct. Consent: Consent: The risks and benefits of monitored anesthesia care, including the risk of aspiration, nausea/vomiting and the risks of not performing the procedure, including severe pain and inability to complete the procedure, were all discussed with the patient. The alternatives of performing the procedure, including local anesthesia and IV analgesia, also discussed. The patient has a ride home available Indication: Closed reduction. Monitoring: Cardiac, blood pressure, continuous pulse oximetry. Preparation: Suction, IV access, Constant attendance, Supplemental oxygen. Physical exam: Airway: appears normal, Heart: regular rate and rhythm, Breath sounds: equal. Pre sedation vital signs: See nurse's notes. Procedural sedation: 1 mg/kg IV ketamine. Post sedation vital signs: See nurse's notes. Patient tolerated: Well. Complications: The patient was recovered from the sedation without complication or incident. Post sedation condition: Patient returned to pre-sedation level of awareness. The monitoring was discontinued at this time. Performed by: Self. Notes: Pt attended by independent trained observer time of sedation was 15 minutes. . Dislocation procedure Time: 4:15 AM Confirmed correct: Patient, procedure, sight. Consent: Patient Indication: Dislocation Location: Pre procedure exam: Sensory intact, Procedural sedation: (repeat): Ketamine Monitoring: Cardiac, blood pressure and pulse oximiter Technique: traction - counter traction. Post-procedure exam: _Shoulder would reduce but immediately went back in. This appears to be chronic. 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 Reduces but goes right back out of place. - Discharged home - Discussed plan with patient. Answered any questions. - Evaluation and treatment of this problem were appropriate in the emergency setting. . Lab Data Radiology Impressions Head CT 01/11/25 23:56 IMPRESSION: No acute intracranial abnormality. Shoulder X-Ray 01/11/25 23:56 IMPRESSION: 1. Left anterior shoulder dislocation. 2. No definite acute fracture/osseous Bankart lesion. Shoulder CT 01/12/25 02:09 IMPRESSION: Incomplete left anterior shoulder dislocation with subluxation of the humeral head resting low within the glenohumeral joint and impacting upon the inferior glenoid with a small osseous Bankart fracture. Laboratory Results POC Glucose 157 mg/dL (70-110) H 01/12/25 00:04 All radiology interpretation(s) finalized by discharge Discharge Plan Discharge Patient Disposition: Home Clinical Impression: Fall Condition: Stable Prescriptions: No Action cetirizine 10 mg Tablet 10 mg PO DAILY hydralazine 25 mg Tablet 25 mg PO TID clopidogrel 75 mg Tablet 75 mg PO DAILY levothyroxine 25 mcg Tablet 25 mcg PO DAILY pravastatin 10 mg Tablet 10 mg PO QPM pantoprazole 40 mg Tablet,Delayed Release (/Ec) 40 mg PO DAILY furosemide 20 mg Tablet 20 mg PO DAILY escitalopram oxalate 20 mg Tablet 20 mg PO DAILY Effer-K 10 mEq Tablet, Effervescent 10 meq PO BID magnesium oxide 400 mg magnesium Tablet 400 mg PO BID losartan 50 mg Tablet 25 mg PO DAILY 30 Days Qty: 0 0RF metoprolol tartrate 25 mg tablet 25 mg PO BID Qty: 60 0RF Discharge Orders: Discharge ED (Routine); Ordered 01/12/25 Ordered By: Angelika Medrano Referrals: Lex Pan MD [Primary Care Provider] - Discharge Diet: Usual diet Discharge Activity: Increase activity as tolerated Patient Instructions: Opioid Safety, Pain Management Activity Restrictions/Additional Instructions: Thank you for choosing [facility] for your healthcare needs today. Please realize this is an emergency room and that we are providing you with a medical screening exam and this may not be complete and all inclusive of all the testing and or work up that you may need to determine your ailment or severity of your illness. You have been screened and evaluated and felt safe for discharge. Health conditions do change or evolve sometimes and as such it is important that you follow up with your Primary Doctor to be re checked, 3-5 days is a general good time frame for follow up. You are always welcome to return to the ED for re assessment if your symptoms are worsening or you have new concerns Print Language: [place]ian Coding Level of Care Code ED Facing Baster for Megan Silva
[2025-01-12 00:08] LABS: Glucose Point of Care 157 mg/dL (70-110)
--- NOTE | 2025-01-12 02:09 | CTR_ITS ---
PROCEDURE INFORMATION: Exam: CT Left Upper Extremity Without Contrast, Shoulder Exam date and time: 01/12/2025 2:20 AM Age: 89 years old Clinical indication: Pain; Shoulder; Left; Additional info: Shoulder dislocation TECHNIQUE: Imaging protocol: Computed tomography of the left upper extremity without contrast. Exam focused on the shoulder. Radiation optimization: All CT scans at this facility use at least one of these dose optimization techniques: automated exposure control; mA and/or kV adjustment per patient size (includes targeted exams where dose is matched to clinical indication); or iterative reconstruction. COMPARISON: CR (CHEST, ) 01/12/2025 12:06 AM RADIATION DOSE METRICS: Total DLP (mGy-cm): 259.2 FINDINGS: Bones/joints: Incomplete left anterior shoulder dislocation with subluxation of the humeral head resting low within the glenohumeral joint and impacting upon the inferior glenoid with a small osseous Bankart fracture (series 7, image 42). No Hill-Sachs deformity. Severe degenerative changes of the glenohumeral joint with large marginal osteophytes. Mild shoulder effusion. Soft tissues: Pleural-based fat density nodularity along the left upper lobe measuring 2.4 x 0.8 cm of the left 3rd-4th intercostal space (series 3, image 68). Vasculature: Moderate atherosclerotic changes of the aorta and its major branches. Lymph nodes: Calcified mediastinal and right hilar lymph nodes. Other findings: Severe coronary artery calcifications. Hypodense left thyroid nodule measuring [address]/CT shoulder LT wo con* [id number] IMPRESSION: Incomplete left anterior shoulder dislocation with subluxation of the humeral head resting low within the glenohumeral joint and impacting upon the inferior glenoid with a small osseous Bankart fracture.
[2025-01-12] MEDS: ketamine 100 mg/mL Inj 5 mL 57.6 MG IV (04:03)
== END 2025-01-12 05:17 | disposition home or self-care (01) ==
PROVIDERS: Emergency Provider Emergency Medicine; PCP Family Medicine
DX: S43.005A Unspecified dislocation of left shoulder joint, initial encounter (principal); Z79.02 Long term (current) use of antithrombotics/antiplatelets; W19.XXXA Unspecified fall, initial encounter
CPT/HCPCS: 23650; 36416; 70450; 73030; 73200; 82962; 99152; 99285; J3490

== ENCOUNTER 2025-02-13 09:43 | Outpatient (CLI) | payer MEDICARE, OTHER, SELFPAY ==
[2025-02-13 10:12] LABS: Estmated Average Glucose 105; Hemoglobin A1C 5.3 % (4.0-6.0)
== END 2025-02-13 09:44 | disposition home or self-care (01) ==
PROVIDERS: PCP Family Medicine; Visit Provider Family Medicine
DX: E11.9 Type 2 diabetes mellitus without complications (principal); D64.9 Anemia, unspecified
CPT/HCPCS: 83036

== ENCOUNTER 2025-03-21 15:32 | Inpatient (IN) | payer MEDICARE, OTHER, SELFPAY ==
[2025-03-21] VITALS (7 sets, daily range): BP systolic 130–171; BP diastolic 58–90; PULSE 94–104; RESP 16–20; TEMP 36.5–36.9; O2SAT 95–99
--- NOTE | 2025-03-21 15:41 | XRR_ITS ---
PROCEDURE INFORMATION: Exam: XR Right Foot Exam date and time: 03/21/2025 3:57 PM Age: 89 years old Clinical indication: Other: Toe infection; Additional info: Toe infectin TECHNIQUE: Imaging protocol: Radiologic exam of the right foot. Views: 3 or more views. COMPARISON: No relevant prior studies available. FINDINGS: Bones/joints: No acute fracture or dislocation. Moderate degenerative changes of the midfoot. Mild degenerative changes in multiple interphalangeal joints. No definite osseous erosions or cortical irregularity. Soft tissues: Soft tissue swelling in the forefoot, including along the great toe. XR/XR foot RT min 3V* [id number] IMPRESSION: 1. No acute osseous findings. 2. No definite radiographic evidence of osteomyelitis. MRI could be considered for further evaluation if clinically warranted.
--- NOTE | 2025-03-21 15:43 | W.ED.WOUNDLC ---
HPI - Wound/Laceration General: Chief Complaint: Wound/Laceration Stated Complaint: toe infection Time Seen by Provider: 03/21/25 15:33 Source: EMS Mode of arrival: EMS Limitations: altered mental status History of Present Illness: 89-year-old female is here with erythema noted to right second toe. Sent here from [place] patient's had history of strokes nonverbal no history is available from her. No fevers at the long term. Related Data Home Medications ?Medication ?Instructions ?Recorded ?Confirmed cetirizine 10 mg tablet 10 mg PO DAILY 01/03/25 03/21/25 clopidogrel 75 mg tablet 75 mg PO DAILY 01/03/25 03/21/25 Held on 01/05/25. Instructions: Resume on 01/11/25. escitalopram oxalate 20 mg tablet 20 mg PO DAILY 01/03/25 03/21/25 furosemide 20 mg tablet 20 mg PO DAILY 01/03/25 03/21/25 hydralazine 25 mg tablet 25 mg PO TID 01/03/25 03/21/25 levothyroxine 25 mcg tablet 25 mcg PO DAILY 01/03/25 03/21/25 magnesium oxide 400 mg PO BID 01/03/25 03/21/25 pantoprazole 40 mg tablet,delayed 40 mg PO QAM 01/03/25 03/21/25 release pravastatin 10 mg tablet 10 mg PO QPM 01/03/25 03/21/25 acetaminophen 325 mg tablet 650 mg PO Q6H PRN Pain 03/21/25 03/21/25 losartan 25 mg tablet 25 mg PO QAM 03/21/25 03/21/25 potassium chloride 20 mEq 20 meq PO QAM 03/21/25 03/21/25 tablet,extended release(part/cryst) triamcinolone acetonide 0.1 % 1 applic topical BID 03/21/25 03/21/25 topical cream Previous Rx's ?Medication ?Instructions ?Recorded metoprolol tartrate 25 mg tablet 25 mg PO BID #60 tabs 01/05/25 doxycycline hyclate 100 mg tablet 100 mg PO BID 7 days #14 tabs 03/21/25 Allergies Allergy/AdvReac Type Severity Reaction Status Date / Time ciprofloxacin (From Cipro) Allergy Unknown Verified 01/04/25 11:40 Penicillins Allergy Unknown Verified 01/04/25 11:40 propoxyphene (From Darvon) Allergy Unknown Verified 01/04/25 11:40 Sulfa (Sulfonamide Allergy Unknown Verified 01/04/25 11:40 Antibiotics) Review of Systems General: Reports: ROS unobtainable due to mental status PFSH ED PFSH: Medical History Urinary retention Acute UTI Physical Exam Const: COMMON NORMALS: negative for patient oriented x3 HENMT: COMMON NORMALS: normocephalic and atraumatic HEAD & SCALP: normocephalic and atraumatic Neck/C-Spine: COMMON NORMALS: full ROM and supple Chest: COMMONS NORMALS: normal inspection of the chest Resp: COMMON NORMALS: normal respiratory effort Cardio: COMMON NORMALS: regular rate, regular rhythm and No murmurs present (Cardio) RATE: regular rate RHYTHM: regular rhythm Extremity: COMMON NORMALS: full ROM NARRATIVE EXTREMITY EXAM: Erythema noted to the right second toe Neuro: COMMON NORMALS: moves all extremities and no focal motor deficits; negative for patient oriented x3 Psych: COMMON NORMALS: mental status grossly normal, Normal thought process present and cooperative THOUGHT PROCESS: Normal thought process present Skin: COMMON NORMALS: no rashes or lesions noted and no wounds GENERAL SKIN EXAM: no rashes or lesions noted Course Vital Signs: Vital signs: Vital Signs Temperature 97.7 F 03/21/25 15:33 Pulse Rate 102 H 03/21/25 15:33 Respiratory Rate 16 03/21/25 15:33 Blood Pressure 135/62 03/21/25 15:33 Pulse Oximetry 99 03/21/25 15:33 Oxygen Delivery Me thod Room Air 03/21/25 15:33 MDM - Wound/Laceration Medical Decision Making Patient presents for cellulitis to right second toe patient seen in the ER by Dr. Samuel is worried about gangrene will admit on IV antibiotics at this time. Medical Records I reviewed the patient's medical records. Lab Data I reviewed the patient's lab results. 03/21/25 15:52 03/21/25 15:52 Radiology Impressions Foot X-Ray 03/21/25 15:41 IMPRESSION: 1. No acute osseous findings. 2. No definite radiographic evidence of osteomyelitis. MRI could be considered for further evaluation if clinically warranted. Laboratory Results WBC 15.19 10^3/uL (3.29-11.43) H 03/21/25 15:52 RBC 4.16 10^6/uL (3.85-5.65) 03/21/25 15:52 Hgb 13.40 g/dL (11.27-16.99) 03/21/25 15:52 Hct 39.6 % (36-47) 03/21/25 15:52 MCV 95.2 fl (85-98) 03/21/25 15:52 MCH 32.2 pg (27-33) 03/21/25 15:52 MCHC 33.8 g/dL (30-55) 03/21/25 15:52 RDW 13.0 % (12.1-15.1) 03/21/25 15: Plt Count 282 10^3/cmm (157-399) 03/21/25 15: MPV 8.3 fL (7.4-10.4) 03/21/25 15:52 Neut % (Auto) 77.9 % 03/21/25 15:52 Lymph % (Auto) 13.7 % 03/21/25 15:52 [place] % (Auto) 7.2 % 03/21/25 15:52 Eos % (Auto) 0.5 % 03/21/25 15:52 Baso % (Auto) 0.2 % 03/21/25:52 Neut # (Auto) 11.84 10^3/uL (1.8-7.7) H 03/21/25 15:52 Lymph # (Auto) 2.1 10^3/uL (0.8-4.8) 03/21/25 15:52 [place] # (Auto) 1.1 10^3/uL (0.2-0.9) H 03/21/25 15:52 Eos # (Auto) 0.1 10^3/uL (0.0-0.8) 03/21/25 15:52 Baso # (Auto) 0.0 10^3/uL (0.0-0.1) 03/21/25 15:52 Nucleated RBC % (auto) 0 % 03/21/25 15:52 Nucleated RBCs # 0.0 /100WBC 03/21/25 15:52 ESR 12 mm/hr (0-15) 03/21/25 15:52 Sodium 132 mmol/L (136-145) L 03/21/25 15:52 Potassium 3.9 mmol/L (3.5-5.1) 03/21/25 15:52 Chloride 94 mmol/L (98-107) L 03/21/25 15:52 Carbon Dioxide 23 mmol/L (22-29) 03/21/25 15:52 Anion Gap 18.9 (5-19) 03/21/25 15:52 BUN 13 mg/dL (8-23) 03/21/25 15:52 Creatinine 1.2 mg/dL (0.5-0.9) H 03/21/25 15:52 GFR Calculation Not Reportable 03/21/25 15:52 Glucose 216 mg/dL (65-115) H 03/21/25 15:52 Calculated Osmolality 281 mOsm/kg (285-295) L 03/21/25 15:52 Calcium 9.6 mg/dL (8.5-10.5) 03/21/25 15:52 C-Reactive Protein 128.5 mg/L (0.0-4.9) H 03/21/25 15:52 All radiology interpretation(s) finalized by discharge Discharge Plan Discharge Patient Disposition: Admitted As Inpatient Clinical Impression: Cellulitis of second toe, right Condition: Stable Coding Level of Care Code ED Specification Writer for Megan Silva
[2025-03-21 16:00] LABS: Basophils % 0.2 %; Eosinophils # 0.1 10^3/uL (0.0-0.8); Eosinophils % 0.5 %; Hematocrit 39.6 % (36-47); Lymphocytes # 2.1 10^3/uL (0.8-4.8); Lymphocytes % 13.7 %; Mean Corpuscular HGB Conc 33.8 g/dL (30-55); Mean Corpuscular Hemoglobin 32.2 pg (27-33); Mean Corpuscular Volume 95.2 fl (85-98); Mean Platelet Volume 8.3 fL (7.4-10.4); Monocytes # 1.1 10^3/uL (0.2-0.9); Monocytes % 7.2 %; Neutrophils # 11.84 10^3/uL (1.8-7.7); Neutrophils % 77.9 %; Nucleated Red Blood Cells % 0 %; Platelet Count 282 10^3/cmm (157-399); Red Blood Count 4.16 10^6/uL (3.85-5.65); White Blood Count 15.19 10^3/uL (3.29-11.43)
[2025-03-21 16:09] LABS: Erythrocyte Sedimentation Rate 12 mm/hr (0-15)
[2025-03-21 16:14] LABS: Anion Gap 18.9 (5-19); Blood Urea Nitrogen 13 mg/dL (8-23); C Reactive Protein 128.5 mg/L (0.0-4.9); Calcium 9.6 mg/dL (8.5-10.5); Carbon Dioxide 23 mmol/L (22-29); Chloride 94 mmol/L (98-107); Glucose 216 mg/dL (65-115); Osmolality Calculated 281 mOsm/kg (285-295); Potassium 3.9 mmol/L (3.5-5.1); Sodium 132 mmol/L (136-145)
--- NOTE | 2025-03-21 16:28 | PC.PHAR ---
[facility] is faxing current med list 03/21/25 4:30pm
--- NOTE | 2025-03-21 16:43 | PM.CONSULT ---
Providers/Reason For Consult Consulting Physician/Specialty*: Brant Samuel D.P.M. Reason for Consult*: Wound with cellulitis right foot Primary Care Provider: Lex Pan MD History of Present Illness History of Present Illness Sara Almeida is a 89 year old female presents from memory unit at [facility] with report of foul-smelling wound to the right second toe with redness streaking across the right forefoot and wound both heels. Patient has dementia and is nonverbal. Review of Systems General: Reports: 10 or more systems reviewed and unremarkable except in HPI and below Const: Denies: fever(s) or chills Eyes: Denies: change in vision Card: Denies: chest pain or palpitations Resp: Denies: dyspnea or productive cough GI: Denies: abdominal pain, nausea or vomiting : Denies: flank pain Musc: Reports: extremity swelling, joint stiffness and deformity Skin/Breast: Reports: erythema, sores, changes in skin color, dry skin, nail changes and change in hair Neuro: Reports: numbness in extremities, sensory changes and difficulty walking Psych: Denies: suicidal ideation Endo: Denies: change in body appearance Abhinav/Lymph: Denies: tender lymph nodes Medications/Allergies Home Medications ?Medication ?Instructions ?Recorded ?Confirmed ?Last Taken ?Type cetirizine 10 mg tablet 10 mg PO DAILY 01/03/25 03/21/25 03/21/25 History clopidogrel 75 mg tablet 75 mg PO DAILY 01/03/25 03/21/25 03/21/25 History Held on 01/05/25. Instructions: Resume on 01/11/25. escitalopram oxalate 20 mg tablet 20 mg PO DAILY 01/03/25 03/21/25 03/21/25 History furosemide 20 mg tablet 20 mg PO DAILY 01/03/25 03/21/25 03/21/25 History hydralazine 25 mg tablet 25 mg PO TID 01/03/25 03/21/25 03/21/25 History levothyroxine 25 mcg tablet 25 mcg PO DAILY 01/03/25 03/21/25 03/21/25 History magnesium oxide 400 mg PO BID 01/03/25 03/21/25 03/21/25 History pantoprazole 40 mg tablet,delayed 40 mg PO QAM 01/03/25 03/21/25 03/21/25 History release pravastatin 10 mg tablet 10 mg PO QPM 01/03/25 03/21/25 03/20/25 History metoprolol tartrate 25 mg tablet 25 mg PO BID #60 tabs 01/05/25 03/21/25 03/21/25 Rx acetaminophen 325 mg tablet 650 mg PO Q6H PRN Pain 03/21/25 03/21/25 Unknown History doxycycline hyclate 100 mg tablet 100 mg PO BID 7 days #14 tabs 03/21/25 Unknown Rx losartan 25 mg tablet 25 mg PO QAM 03/21/25 03/21/25 03/21/25 History potassium chloride 20 mEq 20 meq PO QAM 03/21/25 03/21/25 03/21/25 History tablet,extended release(part/cryst) triamcinolone acetonide 0.1 % 1 applic topical BID 03/21/25 03/21/25 03/21/25 History topical cream Allergies Allergy/AdvReac Type Severity Reaction Status Date / Time ciprofloxacin (From Cipro) Allergy Unknown Verified 01/04/25 11:40 Penicillins Allergy Unknown Verified 01/04/25 11:40 propoxyphene (From Darvon) Allergy Unknown Verified 01/04/25 11:40 Sulfa (Sulfonamide Allergy Unknown Verified 01/04/25 11:40 Antibiotics) PFSH Acute PFSH: Medical History Urinary retention Acute UTI Social History Additional social history: She has DO NOT RESUSCITATE order from [facility] signed by PCP and Sara Almeida on 12/13/2024 Next of kin is son Freddie Almeida [phone] Vitals/I&O/Wt Last Vital Signs Temp 97.7 F 03/21/25 15:33 Pulse 102 H 03/21/25 15:33 Resp 16 03/21/25 15:33 BP 135/62 03/21/25 15:33 Pulse Ox 99 03/21/25 15:33 O2 Del Method Room Air 03/21/25 15:33 Physical Exam Const: COMMON NORMALS: no acute distress, patient oriented x3 and alert HENMT: COMMON NORMALS: normocephalic HEAD & SCALP: normocephalic Eye: COMMON NORMALS: Equal, round and reactive pupils present PUPIL: Yes Equal, round and reactive pupils present Resp: COMMON NORMALS: normal respiratory effort, No retractions and No use of accessory muscles Cardio: COMMON NORMALS: regular rate RATE: regular rate OTHER: Palpable dorsalis pedis and posterior tibial arteries left and right foot. Palpable popliteal artery bilaterally. Extremity: COMMON NORMALS: no calf tenderness; negative for no pedal edema GENERAL: Yes deformity Neuro: COMMON NORMALS: patient oriented x3 SENSORIUM/ORIENTATION: Yes alert SENSORY EXAM: Yes extremities (Diminished protective sensation bilateral lower extremity.) MONOFILAMENT EXAM PERFORMED: Yes MOTOR EXAM: 5/5 motor strength present throughout Psych: COMMON NORMALS: cooperative Skin: NARRATIVE SKIN EXAM: Full-thickness wound at the distal tuft of the right second toe extends to the distal phalanx able to palpate and debride down to the distal tuft of the distal phalanx with ischemic changes at the most distal aspect of the right second toe, erythema with cellulitis streaking to the dorsum of the right forefoot. Foul odor right second toe. Wound at the distal right second toe measures 8 mm x 11 mm x 4 mm. Unstageable ulcer to left and right heel without bogginess or fluctuance or drainage, eschar is firm and stable appearing with mild DOTTY wound erythema at the right posterior heel and no periwound erythema at the left. 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 The wound was debrided of hyperkeratotic rim and devitalized and fibrotic tissue down to bone, being the deepest level of debridement. Predebridement measurements: 8 mm x 11 mm x 4 mm Postdebridement measurements: 9 mm x 12 mm x 4 mm Hemostasis: Pressure Irrigation: sterile saline Dressing: Betadine wet-to-dry noncompressive dressing. Estimated Blood Loss: minimal Offloading: Cam boot (5) Open wound of right heel: Betadine wet-to-dry, will offload with heel protector. (6) Open wound of left heel: Will offload with heel protector to be dispensed by physical therapy. Plan 89-year-old diabetic female with dementia presents with wound extends to bone right second toe distal phalanx with accompanying cellulitis. Recommend admission to hospital service for empiric IV antibiotics, will monitor her response to initial IV antibiotic treatment, surgical intervention anticipated 03/23/2025 should she fail to respond to IV antibiotics clinically. Recommend bilateral KULDEEP noninvasive vascular studies. Bilateral heel protectors Right second toe debridement bedside in emergency department as above, postdebridement wound culture sent to microbiology Podiatry will follow. PDMP PDMP Reviewed: Not Reviewed Consult Attestations Medical Necessity Statement: Wound exposed bone right second toe with cellulitis right foot. Recommend hospital admission with plans for IV antibiotics, wound care and possible surgical intervention. Coding Level of Care Code Acute Code for Chg Fwd Diagnoses Dementia without behavioral disturbance, psychotic disturbance, mood disturbance, or anxiety, unspecified dementia severity, unspecified dementia type F03.90 Dementia type: unspecified type Dementia severity: unspecified severity Dementia behavioral or psychological symptom: without behavioral, psychotic, or mood disturbance or anxiety Diabetic peripheral neuropathy associated with type 2 diabetes mellitus E11.42 Cellulitis of right foot L03.115 Non-pressure chronic ulcer of other part of right foot with necrosis of bone L97.514 Open wound of right heel, initial encounter S91.301A Encounter type: initial encounter Open wound of left heel, initial encounter S91.302A Encounter type: initial encounter Comment CPT 90550
[2025-03-21] MEDS: VANCOMYCIN ADD-Vantage 1,000 MG in 0.9% NaCl ADD-Vantage 250 ML 250 MG IV (16:51)
--- NOTE | 2025-03-21 17:24 | PM.HP ---
Providers/Chief Complaint Admitting Physician: Keegan Menon MD Primary Care Provider: Lex Pan MD Chief Complaint: toe infection History of Present Illness Sara Almeida is a 89 year old female lives at [facility] where she was found to have a infected toe. She is diabetic and nonverbal with history of stroke. 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 Patient is not able to answer any questions meaningfully. She does mumble yes and other unintelligible words but does not seem to be reliable in response to questions History from last hospitalization 01/03/2025 Sara Almeida is a 89 year old female with PMH CVA 7 years ago following which she has been nonambulatory, nonverbal, speaks only 1-2 short words and few basic sentences, has been wheelchair-bound. Patient used to live with her son in [facility] and receiving home care until about a month ago when she moved into [place]. She presented to the emergency room yesterday with hypoglycemia. She received dextrose infusion and was instructed to reduce her Lantus dosing. However this afternoon she returned again from the [facility] with hypoglycemia. Discharge summary from 01/05/2025 Sara Almeida is an 89-year-old female who presented from nursing facility with hypoglycemia, found to have insulin induced hypoglycemia, acute complicated urinary tract infection with urinary retention, dysphagia, sinus bradycardia, and suspected GI bleed. Her insulin regiment was discontinued. Prior physician discussed diabetes management with son and they made the determination to end all insulin and oral diabetes medications as her A1c is well-controlled. For her dysphagia, she was evaluated by speech therapy and placed to modified diet which she tolerated well. Recommendations to continue this diet at the facility. She is found to have sinus bradycardia for which beta-jennifer was held. She was on a very high beta-jennifer dose prior to presentation. Heart rate recovered. She will be discharged on very low-dose beta-jennifer as to prevent beta-jennifer withdrawal. Her losartan was decreased. Recommend continue to monitor heart rate and blood pressure at facility. She was found to have acute complicated urinary tract infection treated with ceftriaxone and transition to cefdinir at discharge. She was noted to have mild thrombocytopenia while on Plavix. She has a history of stroke and there is concern for possible GI bleed. Family declined workup for GI bleed to prior provider. She will be continued on her PPI. Recommend holding Plavix for 7 days to allow for recovery. Her mentation was found to be at baseline on day of discharge. She will discharge back to facility in stable condition. Would recommend consideration of hospice evaluation at facility if consistent with family's wishes. Review of Systems General: Reports: ROS unobtainable due to mental status Medications/Allergies Home Medications ?Medication ?Instructions ?Recorded ?Confirmed ?Last Taken ?Type cetirizine 10 mg tablet 10 mg PO DAILY 01/03/25 03/21/25 03/21/25 History clopidogrel 75 mg tablet 75 mg PO DAILY 01/03/25 03/21/25 03/21/25 History Held on 01/05/25. Instructions: Resume on 01/11/25. escitalopram oxalate 20 mg tablet 20 mg PO DAILY 01/03/25 03/21/25 03/21/25 History furosemide 20 mg tablet 20 mg PO DAILY 01/03/25 03/21/25 03/21/25 History hydralazine 25 mg tablet 25 mg PO TID 01/03/25 03/21/25 03/21/25 History levothyroxine 25 mcg tablet 25 mcg PO DAILY 01/03/25 03/21/25 03/21/25 History magnesium oxide 400 mg PO BID 01/03/25 03/21/25 03/21/25 History pantoprazole 40 mg tablet,delayed 40 mg PO QAM 01/03/25 03/21/25 03/21/25 History release pravastatin 10 mg tablet 10 mg PO QPM 01/03/25 03/21/25 03/20/25 History metoprolol tartrate 25 mg tablet 25 mg PO BID #60 tabs 01/05/25 03/21/25 03/21/25 Rx acetaminophen 325 mg tablet 650 mg PO Q6H PRN Pain 03/21/25 03/21/25 Unknown History doxycycline hyclate 100 mg tablet 100 mg PO BID 7 days #14 tabs 03/21/25 Unknown Rx losartan 25 mg tablet 25 mg PO QAM 03/21/25 03/21/25 03/21/25 History potassium chloride 20 mEq 20 meq PO QAM 03/21/25 03/21/25 03/21/25 History tablet,extended release(part/cryst) triamcinolone acetonide 0.1 % 1 applic topical BID 03/21/25 03/21/25 03/21/25 History topical cream Allergies Allergy/AdvReac Type Severity Reaction Status Date / Time ciprofloxacin (From Cipro) Allergy Unknown Verified 01/04/25 11:40 Penicillins Allergy Unknown Verified 01/04/25 11:40 propoxyphene (From Darvon) Allergy Unknown Verified 01/04/25 11:40 Sulfa (Sulfonamide Allergy Unknown Verified 01/04/25 11:40 Antibiotics) PFSH Acute PFSH: Medical History Urinary retention Acute UTI Social History (Updated 03/21/25 @ 17:38 by Keegan Menon MD) Additional social history: She has DO NOT RESUSCITATE order from [facility] signed by PCP and Sara Almeida on 12/13/2024 Next of kin is son Freddie Almeida [phone] Vitals/I&O/Wt Last Vital Signs Temp 97.7 F 03/21/25 15:33 Pulse 102 H 03/21/25 15:33 Resp 16 03/21/25 15:33 BP 135/62 03/21/25 15:33 Pulse Ox 99 03/21/25 15:33 O2 Del Method Room Air 03/21/25 15:33 Physical Exam Narrative: General Well-developed thin female not cooperative with exam but not combative other than moving her feet away and not aggressively trying to take away when examining her feet. CV regular rate and rhythm Lungs clear to auscultation bilaterally Abdomen positive bowel sounds soft Calves no asymmetry Right second toe is dark and ulcerated and moist with odor see image below Skin: NARRATIVE SKIN EXAM: Data 03/21/25 15:52 03/21/25 15:52 A&P Assessment and plan (1) Cellulitis of second toe, right: Patient be started on cefazolin. She is already received vancomycin at the emergency department Anticipated surgery in the morning for amputation by Dr. Samuel (2) Diabetic peripheral neuropathy associated with type 2 diabetes mellitus: Pain appears to be mild but will order some hydrocodone as needed (3) Dementia: Unchanged PDMP PDMP Reviewed: Not Reviewed Attestations Medical Necessity Statement*: Patient readmitted to the hospital anticipate greater than 2 midnights Coding Level of Care Code 94986 Diagnoses Cellulitis of second toe, right L03.031 Diabetic peripheral neuropathy associated with type 2 diabetes mellitus E11.42 Dementia F03.90 Time Spent (min) 50
[2025-03-21] MEDS: ceFAZolin 1,000 mg SDV 1000 MG IVP (19:22)
[2025-03-21] MEDS: enoxaparin 30 mg/0.3 mL Syringe SUBCUT (19:23)
[2025-03-21] MEDS: sodium chlor 0.9% + KCl 20 mEq 20 MEQ/1,000 ML BAG 100 MEQ IV (19:25)
--- NOTE | 2025-03-21 19:42 | PC.NURSE ---
Report called to CHICHI Strong.
[2025-03-21] MEDS: hyDRALAzine 25 mg Tablet PO (21:24)
[2025-03-21] MEDS: metoprolol tartrate 25 mg Tablet PO (21:24)
[2025-03-22] VITALS (12 sets, daily range): BP systolic 105–180; BP diastolic 48–76; PULSE 65–100; RESP 15–19; TEMP 36.5–37.7; O2SAT 93–100
[2025-03-22] MEDS: sodium chlor 0.9% + KCl 20 mEq 20 MEQ/1,000 ML BAG 100 MEQ IV (05:09)
[2025-03-22] MEDS: pantoprazole DR 40 mg Tablet PO (06:11)
[2025-03-22] MEDS: losartan 50 mg Tablet 25 MG PO (06:11)
--- NOTE | 2025-03-22 08:57 | PC.PT ---
Therapist spoke with nursing and they reported that following surgery for toe amputation they will be placing the offloading heel protectors as those are not something the PT regularly dispenses.
--- NOTE | 2025-03-22 09:35 | ANES.PREANE2 ---
Pre-Anesthetic Assessment Height/Weight: Height 1.5 m Weight 44.452 kg Temp Pulse Resp BP Pulse Ox O2 Del Method 99.8 F H 100 19 H 105/75 100 Room Air 03/22/25 09:32 03/22/25 09:32 03/22/25 09:32 03/22/25 09:32 03/22/25 09:32 03/22/25 09:32 Operation Date: 03/22/25 11:20 Proposed Procedures p Amputation of right second toe(Right) - Brant Samuel DPM Familial anesthetic complications: NOne Was Beta Vicky taken within 24 hours: Yes Was Clonidine taken within 24 hours: N/A Last intake: > 8 hrs Social No alcohol and No tobacco Exam alert, clear to auscultation bilaterally and regular rate & rhythm Airway Mallampati: Class II CV/HEM Arrythmia and Hypertension Metabolic Thyroid Disease Neuropsych Cerebrovascular Accident and Dementia Anesthetic Plan ASA status: 3 Anesthesia: MAC Risk of > 500 ml blood loss (7ml/kg in children): No Medications/Allergies Home Medications ?Medication ?Instructions ?Recorded ?Confirmed ?Last Taken ?Type cetirizine 10 mg tablet 10 mg PO DAILY 01/03/25 03/21/25 03/21/25 History clopidogrel 75 mg tablet 75 mg PO DAILY 01/03/25 03/21/25 03/21/25 History Held on 01/05/25. Instructions: Resume on 01/11/25. escitalopram oxalate 20 mg tablet 20 mg PO DAILY 01/03/25 03/21/25 03/21/25 History furosemide 20 mg tablet 20 mg PO DAILY 01/03/25 03/21/25 03/21/25 History hydralazine 25 mg tablet 25 mg PO TID 01/03/25 03/21/25 03/21/25 History levothyroxine 25 mcg tablet 25 mcg PO DAILY 01/03/25 03/21/25 03/21/25 History magnesium oxide 400 mg PO BID 01/03/25 03/21/25 03/21/25 History pantoprazole 40 mg tablet,delayed 40 mg PO QAM 01/03/25 03/21/25 03/21/25 History release pravastatin 10 mg tablet 10 mg PO QPM 01/03/25 03/21/25 03/20/25 History metoprolol tartrate 25 mg tablet 25 mg PO BID #60 tabs 01/05/25 03/21/25 03/21/25 Rx acetaminophen 325 mg tablet 650 mg PO Q6H PRN Pain 03/21/25 03/21/25 Unknown History doxycycline hyclate 100 mg tablet 100 mg PO BID 7 days #14 tabs 03/21/25 Unknown Rx losartan 25 mg tablet 25 mg PO QAM 03/21/25 03/21/25 03/21/25 History potassium chloride 20 mEq 20 meq PO QAM 03/21/25 03/21/25 03/21/25 History tablet,extended release(part/cryst) triamcinolone acetonide 0.1 % 1 applic topical BID 03/21/25 03/21/25 03/21/25 History topical cream Allergies Allergy/AdvReac Type Severity Reaction Status Date / Time ciprofloxacin (From Cipro) Allergy Unknown Verified 01/04/25 11:40 Penicillins Allergy Unknown Verified 01/04/25 11:40 propoxyphene (From Darvon) Allergy Unknown Verified 01/04/25 11:40 Sulfa (Sulfonamide Allergy Unknown Verified 01/04/25 11:40 Antibiotics) Current Medications Generic Name Dose Route Start Last Admin Trade Name Freq PRN Reason Stop Dose Admin Enoxaparin Sodium 30 mg 03/21/25 19:00 03/21/25 19:23 Enoxaparin 30 Mg/0.3 Ml Syringe SUBCUT 30 mg Q24H JENELLE Administration Hydralazine HCl 25 mg 03/21/25 22:00 03/21/25 21:24 Hydralazine 25 Mg Tablet PO 25 mg TID JENELLE Administration Potassium Chloride/Sodium Chloride 20 meq in 1,000 mls @ 100 mls/hr 03/21/25 18:00 03/22/25 05:09 Sodium Chlor 0.9% + Kcl 20 Meq IV 100 mls/hr .Q10H JENELLE Administration Losartan Potassium 25 mg 03/22/25 06:00 03/22/25 06:11 Losartan 50 Mg Tablet PO 25 mg QAM JENELLE Administration Metoprolol Tartrate 25 mg 03/21/25 22:00 03/21/25 21:24 Metoprolol Tartrate 25 Mg Tablet PO 25 mg BID JENELLE Administration Pantoprazole Sodium 40 mg 03/22/25 06:00 03/22/25 06:[address] 40 Mg Tablet PO 40 mg QAM JENELLE Administration Potassium Chloride 20 meq 03/22/25 06:00 03/22/25 06:09 Potassium Chloride Er 20 Meq Tablet PO Not Given QAM JENELLE [facility] Anesthesia Medical History Urinary retention Acute UTI Social History (Updated 03/21/25 @ 17:38 by Keegan Menon MD) Additional social history: She has DO NOT RESUSCITATE order from [facility] signed by PCP and Sara Almeida on 12/13/2024 Next of kin is son Freddie Almeida [phone] Data Anesthesia 03/21/25 15:52 03/21/25 15:52 Short CBC 03/21/25 Range/Units 15:52 WBC 15.19 H (3.29-11.43) 10^3/uL Hgb 13.40 (11.27-16.99) g/dL Hct 39.6 (36-47) % MCV 95.2 (85-98) fl Plt Count 282 (157-399) 10^3/cmm Neut % (Auto) 77.9 % Neut # (Auto) 11.84 H (1.8-7.7) 10^3/uL BMP 03/21/25 15:52 Sodium 132 L Potassium 3.9 Chloride 94 L Carbon Dioxide 23 BUN 13 Creatinine 1.2 H Glucose 216 H Calcium 9.6 Coags 03/21/25 15:52 ESR 12 C-Reactive Protein 128.5 H Microbiology 03/21/25 15:52 Blood Culture - Preliminary Blood SPECIMEN COLLECTED
--- NOTE | 2025-03-22 10:25 | P.BOP_ITS ---
Date of Procedure: 01/10/24 Surgeon: Brant Samuel DPM [employer]): [employer]. Procedure(s) performed: Right second toe amputation. Great toenail avulsion. Findings of the procedure(s): Gangrene right second toe. Infected ingrowing nail right great toe Estimated blood loss: 10 mL Specimen(s) removed: Right second toe sent to pathology for permanent. Bone right second toe sent to microbiology for Gram stain culture and sensitivity. Post-operative diagnosis: Gangrene right second toe. Ingrowing nail with paronychia right great toe.
--- NOTE | 2025-03-22 10:28 | P.OP_ITS ---
Operative Report Date of procedure: March 22, 2025 Pre-op diagnosis: Gangrene right second toe. Post-op diagnosis: Gangrene right second toe. Ingrowing nail right great toenail with paronychia. Post-op findings: Ingrowing nail right great toenail with purulence at medial border. Procedure done: 1) right second toe amputation. CPT code 16619 2) total nail avulsion of right great toenail. CPT code 81444 Implants: None Specimens removed/disposition: Bone right second toe sent to microbiology for Gram stain culture and sensitivity. Pathology: Right second toe sent to pathology for gross anatomical review Surgeon: Brant Samuel DPM Investigations Chief: [place] Estimated blood loss: 10 4 IV fluids: See intraoperative documentation Urine output: None Complications: None Findings: Viable right second metatarsal head after amputation through metatarsal phalangeal joint of right second toe. Purulence at medial border ingrowing nail right great toe. Brief History: Sara Almeida is a 89 year old female presents from memory unit at [facility] with report of foul-smelling wound to the right second toe with redness streaking across the right forefoot and wound both heels. Patient has dementia and is nonverbal. Spoke with patient's son who is also her DPOA his name is Freddie he lives in [place]. Spoke with him on the phone and informed him of her gangrenous changes to the right second toe necessitating amputation of the right second toe he is in agreements that this can proceed in efforts of source control of infection to prevent ascending infection to the foot. I reviewed at length with the patient, the risks, potential complications, benefits, alternatives, expectations, and typical outcomes associated with the surgery. The risks and potential complications were explained in detail, including but not limited to infection, wound dehiscence or soft tissue complications, bleeding and hematoma, chronic edema, neuritis or nerve damage producing numbness or chronic pain, CRPS, failure to relieve pain or worsening pain, thick / painful / unsightly scar, limited motion / stiffness, malposition, delayed union, malunion, or nonunion, fracture, reaction to implants, anesthetic complications, venous thromboembolism, and deformity recurrence. I discussed the notion of no regrets with the patient as it pertains to complications and outcomes. The patient seemed to understand the nature of the proposed care and required convalescence. They asked appropriate questions, answered to their satisfaction. They are aware no guarantees can be made as to a satisfactory outcome and they understand there may be other possible unforeseen complications or outcomes not listed here that will be treated accordingly if they arise. There were no written or implied guarantees given to the patient. They gave informed consent to proceed. Procedure: Under mild sedation the patient was brought to the operating room and remained on the gurney in supine position. A timeout was performed. Anesthesia was then administered by the anesthesia service. Local anesthesia injected by myself consisting of 20 cc of one-to-one mixture 1% lidocaine and 0.5 Marcaine plain in a right second ray block fashion and an additional 6 cc at right hallux and hallux block fashion. Well-padded pneumatic tourniquet applied to the right ankle. The right lower extremity was scrubbed, prepped and draped utilizing normal aseptic technique. Right foot was elevated and tourniquet inflated to 250 mmHg. Attention was directed to the right second toe which was noted to have wet gangrenous changes at the distal tuft with devitalized soft tissue extending to bone which had motta dusky appearance at the distal phalanx, surrounding erythema and cellulitis streaking to the dorsum of the distal forefoot. 2 vertical semielliptical incisions performed full-thickness down to bone and the right second toe was sharply disarticulated through the second metatarsal phalangeal joint, devitalized bone of the distal phalanx of the second toe sent to microbiology for Gram stain culture and sensitivity. Right second toe was sent to pathology for gross anatomical review and permanent. The incision was irrigated with saline solution. Able to visualize a second metatarsal head appeared to have viable density and color, the incision was irrigated and all bleeders were ligated and cauterized as necessary. Due to surrounding cellulitis at the dorsal right forefoot decision was made to allow continued IV antibiotics during his hospitalization and monitor for clinical improvement and return for further debridement and delayed closure. Attention was directed to the right great toe which had an ingrowing medial border with purulent drainage the right great toenail was freed from soft tissue attachments and avulsed in total without complication this was passed from the operative field, the right great nailbed was irrigated and dressed with saline wet-to-dry. The right second toe amputation site also irrigated and dressed with saline wet-to-dry gauze, Kerlix and Coban without compression. Tourniquet was deflated and a prompt hyperemic response is noted to the remaining digits of the right foot. Patient tolerated the procedure and anesthesia well and was transferred to the PACU with vital signs stable and vascular status intact. Following a period of postoperative monitoring she will be transferred back to the floor to continue IV antibiotics. Will monitor her clinical response and resolution of cellulitis should this be appreciated will return to the operating room for delayed primary closure of the right foot. Spoke with patient's son Freddie Almeida of intraoperative findings and plans for delayed closure once soft tissue improves. He is in agreements.
[2025-03-22] MEDS: lidocaine 1% 10 ML INJ INJECTION (10:32)
[2025-03-22] MEDS: BUPivacaine 0.5% INJ 30 mL INJECTION (10:32)
[2025-03-22] MEDS: VANCOMYCIN ADD-Vantage 1,000 MG in 0.9% NaCl ADD-Vantage 250 ML 250 MG IV (10:35)
--- NOTE | 2025-03-22 10:57 | ANE.PACU2 ---
Inpatient post-anesthesia follow up: Airway intact: Yes Vital signs: Temperature 99.8 F Pulse Rate 100 Respiratory Rate 19 Blood Pressure 105/75 Pulse Oximetry 100 Oxygen Delivery Me thod Room Air Oxygen Flow Rate Fraction of Inspir ed Oxygen Hydration adequate: Yes Nausea and vomiting: No Pain level: 1 Mental status: Baseline (sleepy)
--- NOTE | 2025-03-22 11:20 | P.PN_ITS ---
Subjective 2 Subjective: No acute events overnight. Seen postoperatively. Overnight has remained hemodynamically stable and afebrile. Laying comfortably in bed right now. Seems to be confused which is her baseline mentation. No blood work done today morning. Will request for CBC, CMP along with blood cultures. Vitals/I&O/Wt Last Vital Signs Temp 98.1 F 03/22/25 11:04 Pulse 95 03/22/25 11:04 Resp 16 03/22/25 11:04 BP 133/66 03/22/25 11:04 Pulse Ox 97 03/22/25 11:04 O2 Del Method Room Air 03/22/25 11:04 03/21/25 03/22/25 03/22/25 22:59 06:59 14:59 Intake Total 250 / 250 973.333 / 1223.333 0 / 0 Output Total 10 Balance 250 / 250 973.333 / 1223.333 -10 / -10 Weight last 48 hrs Weight 44.452 kg Weight 44.633 kg Physical Exam 2 Narrative: CV regular rate and rhythm Lungs clear to auscultation bilaterally Abdomen positive bowel sounds soft Calves no asymmetry Right second toe is dark and ulcerated and moist with odor see image below Const: COMMON NORMALS: no acute distress and average body habitus; negative for patient oriented x3 EXAM LIMITATIONS: altered mental status G ENERAL APPEARANCE: cooperative, comfortable and frail appearing O RIENTATION/CONSCIOUSNESS: Yes awake, Yes oriented to person and Yes confused Neuro: COMMON NORMALS: negative for patient oriented x3 S ENSORIUM/ORIENTATION: Yes oriented to person Skin: NARRATIVE SKIN EXAM: Urinary Catheter Management: Guerrero: Cath Placed During This Visit: yes Reason for Continuing Indwelling Catheter: Acute Urinary Retention or Obstruction Urinary Catheter Date of Insertion: 03/22/25 Urinary Catheter Time of Insertion: 04:57 Data 03/21/25 15:52 03/21/25 15:52 Micro: Microbiology 03/21/25 15:52 Blood Culture - Preliminary Blood SPECIMEN COLLECTED A&P Assessment and plan (1) Cellulitis of second toe, right: Stat blood cultures. Not sent on admission. Confirm with micro lab no wound cultures sent from debridement yesterday. Will request intraoperative cultures. Check procalcitonin. MRSA swab. Empirically switch to IV vancomycin and meropenem. Underwent right second toe amputation on 03/22. Appreciate podiatry recommendations. Weightbearing as per podiatry team. Follow-up intraoperative cultures. (2) Dementia: Seems to be at baseline. Continue with home dose of Lexapro (3) Non-pressure chronic ulcer of other part of right foot with necrosis of bone: Underwent bedside debridement with podiatry yesterday. Continue wound care as per podiatry team. Betadine wet-to-dry, will offload with heel protector. (4) Open wound of right heel: (5) Diabetic peripheral neuropathy associated with type 2 diabetes mellitus: Plan Hypertension: Goal blood pressure less than 140/90 mmHg. For now continue with home dose of hydralazine, losartan and metoprolol. Renal dysfunction: Seems to be CKD. Baseline creatinine seems to be ranging from 1.2-1.9. Currently 1.2 on admission. Monitor daily. Cardiac diet Protonix for PUD prophylaxis Hold off on any further IV fluids. Lovenox for DVT prophylaxis. AND PDMP PDMP Reviewed: Not Reviewed Attestations 2 Medical Necessity Statement*: Requires further hospitalization for management of cellulitis and gangrene of right second toe, right foot heel ulcer with necrosis of bone requiring debridement Diagnoses Cellulitis of second toe, right L03.031 Dementia without behavioral disturbance, psychotic disturbance, mood disturbance, or anxiety, unspecified dementia severity, unspecified dementia type F03.90 Dementia type: unspecified type Dementia severity: unspecified severity Dementia behavioral or psychological symptom: without behavioral, psychotic, or mood disturbance or anxiety Non-pressure chronic ulcer of other part of right foot with necrosis of bone L97.514 Open wound of right heel, initial encounter S91.301A Encounter type: initial encounter Diabetic peripheral neuropathy associated with type 2 diabetes mellitus E11.42
[2025-03-22] MEDS: magnesium oxide 400 mg tablet PO ×2 (11:31→17:16)
[2025-03-22] MEDS: levothyroxine 25 mcg Tablet PO (11:31)
[2025-03-22] MEDS: escitalopram 10 mg Tablet 20 MG PO (11:31)
[2025-03-22] MEDS: cetirizine 10 mg Tablet PO (11:31)
[2025-03-22] MEDS: metoprolol tartrate 25 mg Tablet PO ×2 (11:32→17:16)
[2025-03-22] MEDS: clopidogrel 75 mg Tablet PO (11:32)
[2025-03-22] MEDS: meropenem 500 mg SDV IVP ×2 (11:32→22:08)
[2025-03-22 12:11] LABS: Basophils % 0.3 %; Eosinophils # 0.1 10^3/uL (0.0-0.8); Eosinophils % 0.9 %; Hematocrit 33.2 % (36-47); Lymphocytes % 16.7 %; Mean Corpuscular Hemoglobin 32.5 pg (27-33); Mean Corpuscular Volume 95.4 fl (85-98); Mean Platelet Volume 8.6 fL (7.4-10.4); Monocytes # 0.9 10^3/uL (0.2-0.9); Monocytes % 7.6 %; Neutrophils # 8.77 10^3/uL (1.8-7.7); Nucleated Red Blood Cells % 0 %; Platelet Count 226 10^3/cmm (157-399); Red Blood Count 3.48 10^6/uL (3.85-5.65); Red Cell Distribution Width 13.1 % (12.1-15.1); White Blood Count 11.85 10^3/uL (3.29-11.43)
--- NOTE | 2025-03-22 12:26 | XRR_ITS ---
PROCEDURE INFORMATION: Exam: XR Right Foot Exam date and time: 03/22/2025 1:42 PM Age: 89 years old Clinical indication: Other: Post op RT foot; Prior surgery; Surgery date: Post-operative (0-2 days); Additional info: Postop TECHNIQUE: Imaging protocol: Radiologic exam of the right foot. Views: 3 or more views. AP Oblique Lateral COMPARISON: CR (LOW EXM, ) 03/21/2025 3:57 PM FINDINGS: Bones/joints: Amputation of the 2nd digit since the previous day. Fracture is identified within the 1st digit proximal phalanx. Corner fracture involves the proximal lateral aspect and involves the articular surface. Bony displacement measures 4 mm. Adjacent edema. Hallux valgus angulation of the first metatarsal-phalangeal articulation is demonstrated. Diffusely severely decreased bone density. Limited sensitivity to detect acute abnormalities. Moderate to severe generalized bony degenerative changes. Hammertoe phalangeal positioning of the digits is demonstrated. This limits visualization with flexion positioning. External bandage overlies the right ankle and foot which limits visualization. Most severe degenerative changes identified in the right midfoot and right ankle. Calcaneus bony enthesophytes are demonstrated. Recommend clinical correlation for possible focal point tenderness. Soft tissues: Soft tissue air and edema identified at the base of the 2nd digit region compatible with recent surgery. Notes: If there is further concern, recommend follow-up radiographs for complete assessment. XR/XR foot RT min 3V* [id number] IMPRESSION: 1. Recent amputation of the right foot 2nd digit since the previous day. Postsurgical changes with edema and soft tissue air in this region. 2. Fracture involving the first digit proximal phalanx, as described above. 3. Limited evaluation. 4. Degenerative and postsurgical changes are demonstrated, as described above.
[2025-03-22 12:46] LABS: Procalcitonin 0.09 ng/mL (0-0.5); Vitamin B12 801 pg/mL (232-1245)
[2025-03-22 12:59] LABS: Alanine Aminotransferase 9 U/L (0-33); Albumin Level 2.8 g/dL (3.5-5.2); Alkaline Phosphatase 86 U/L (35-105); Anion Gap 18.8 (5-19); Aspartate Amino Transferase 19 U/L (0-32); Blood Urea Nitrogen 10 mg/dL (8-23); Calcium 8.3 mg/dL (8.5-10.5); Carbon Dioxide 18 mmol/L (22-29); Chloride 106 mmol/L (98-107); Creatinine Clr Calc Pharmacy 34.1107; Globulin 2.7 g/dL (1.3-4.6); Glucose 92 mg/dL (65-115); Iron 33 ug/dL (37-145); Osmolality Calculated 287 mOsm/kg (285-295); Percent Saturation 19.5 % (20-50); Potassium 3.8 mmol/L (3.5-5.1); Sodium 139 mmol/L (136-145); Total Bilirubin 0.4 mg/dL (0.15-1.2); Total Iron Binding Capacity 169 mcg/dl; Total Protein 5.5 g/dL (6.6-8.7); Unsaturated Iron Binding 136 ug/dL (112-347)
[2025-03-22 14:57] LABS: MRSA PCR OZH (swab) MRSA Detected (Not Detecte)
[2025-03-22] MEDS: hyDRALAzine 25 mg Tablet PO ×2 (15:22→21:33)
[2025-03-22] MEDS: ATORVASTATIN 10 MG TABLET PO (17:16)
[2025-03-22] MEDS: HYDROcodone-acetaminophen 5-325 mg Tablet 1 TAB PO (17:20)
[2025-03-22] MEDS: enoxaparin 30 mg/0.3 mL Syringe SUBCUT (18:19)
[2025-03-22 20:54] LABS: Glucose Point of Care 87 mg/dL (70-110)
[2025-03-23] VITALS (14 sets, daily range): BP systolic 104–147; BP diastolic 50–76; PULSE 60–84; RESP 15–18; TEMP 36.2–37.1; O2SAT 93–100
[2025-03-23 05:33] LABS: Basophils % 0.3 %; Eosinophils # 0.2 10^3/uL (0.0-0.8); Eosinophils % 2.5 %; Hematocrit 30.6 % (36-47); Lymphocytes # 2.1 10^3/uL (0.8-4.8); Lymphocytes % 23.9 %; Mean Corpuscular HGB Conc 32.7 g/dL (30-55); Mean Corpuscular Hemoglobin 32.4 pg (27-33); Mean Platelet Volume 8.7 fL (7.4-10.4); Monocytes # 0.8 10^3/uL (0.2-0.9); Monocytes % 9.2 %; Neutrophils # 5.56 10^3/uL (1.8-7.7); Neutrophils % 63.6 %; Nucleated Red Blood Cells % 0 %; Platelet Count 235 10^3/cmm (157-399); Red Blood Count 3.09 10^6/uL (3.85-5.65); Red Cell Distribution Width 13.1 % (12.1-15.1); White Blood Count 8.74 10^3/uL (3.29-11.43)
[2025-03-23] MEDS: losartan 50 mg Tablet 25 MG PO (05:40)
[2025-03-23] MEDS: pantoprazole DR 40 mg Tablet PO (05:41)
[2025-03-23 05:52] LABS: Alanine Aminotransferase 8 U/L (0-33); Albumin Level 2.8 g/dL (3.5-5.2); Alkaline Phosphatase 79 U/L (35-105); Anion Gap 15.7 (5-19); Aspartate Amino Transferase 25 U/L (0-32); Blood Urea Nitrogen 8 mg/dL (8-23); Calcium 8.7 mg/dL (8.5-10.5); Carbon Dioxide 21 mmol/L (22-29); Chloride 109 mmol/L (98-107); Creatinine Clr Calc Pharmacy 34.1107; Globulin 2.5 g/dL (1.3-4.6); Glucose 60 mg/dL (65-115); Magnesium 1.6 mg/dL (1.7-2.3); Osmolality Calculated 290 mOsm/kg (285-295); Potassium 3.7 mmol/L (3.5-5.1); Sodium 142 mmol/L (136-145); Total Bilirubin 0.3 mg/dL (0.15-1.2); Total Protein 5.3 g/dL (6.6-8.7)
[2025-03-23 06:38] LABS: Folate Level 13.3 ng/mL (4.8-37.3)
--- NOTE | 2025-03-23 06:38 | ANES.PAUD2 ---
Pre-Anesthetic Update Pre-Anesthetic Assessment: Date of Surgery/Procedure: 03/23/25 Proposed Procedure: Operation Date: 03/22/25 11:20 Proposed Procedures p Amputation of right second toe(Right) - Brant Samuel DPM Operation Date: 03/23/25 07:00 Proposed Procedures p Delayed Wound Closure(Right) - Brant Samuel DPM Any changes to Pre-Anesthetic Assessment?: No Labs Last 48hrs: Short CBC 03/21/25 03/22/25 03/23/25 Range/Units 15:52 11:30 04:35 WBC 15.19 H 11.85 H 8.74 (3.29-11.43) 10^ 3/uL Hgb 13.40 11.30 10.00 L (11.27-16.99) g/ dL Hct 39.6 33.2 L 30.6 L (36-47) % MCV 95.2 95.4 99.0 H (85-98) fl Plt Count 282 226 235 (157-399) 10^3/c mm Neut % (Auto) 77.9 74.0 63.6 % Neut # (Auto) 11.84 H 8.77 H 5.56 (1.8-7.7) 10^3/u L BMP 03/21/25 03/22/25 03/23/25 15:52 11:30 04:35 Sodium 132 L 139 142 Potassium 3.9 3.8 3.7 Chloride 94 L 106 109 H Carbon Dioxide 23 18 L 21 L BUN 13 10 8 Creatinine 1.2 H 0.8 0.8 Glucose 216 H 92 60 L Calcium 9.6 8.3 L 8.7 Liver Function 03/22/25 03/23/25 Range/Units 11:30 04:35 Total Bilirubin 0.4 0.3 (0.15-1.2) mg/dL AST 19 25 (0-32) U/L ALT 9 8 (0-33) U/L Alkaline Phosphata se 86 79 (35-105) U/L Albumin 2.8 L 2.8 L (3.5-5.2) g/dL Coags 03/21/25 15:52 ESR 12 C-Reactive Protein 128.5 H Vitals: Temperature 98.7 F 03/23/25 06:32 Temperature Source Temporal Artery S can 03/23/25 06:32 Pulse Rate 81 05/27/25 06:32 Pulse Rhythm Regular 03/21/25 19:30 Pulse Strength 3+ Normal 03/21/25 19:30 Respiratory Rate 16 03/23/25 06:32 Respiratory Effort Spontaneous, Non- Labored 03/22/25 08:00 Respiratory Depth Normal 03/22/25 08:00 Respiratory Patter n Normal 03/22/25 08:00 Blood Pressure 139/74 03/23/25 06:32 Blood Pressure Stefany n 95 03/23/25 06:32 Blood Pressure Pos ition Semi Fowlers 03/21/25 15:33 Pulse Oximetry 97 03/23/25 06:32 Oxygen Delivery Me thod Room Air 03/23/25 06:32 Sepsis Recent Feve r Within 48 Hours No 03/21/25 15:33 Exam: Pre-Anes Outpt Exam: alert, oriented x 3, clear to auscultation bilaterally and regular rate & rhythm
--- NOTE | 2025-03-23 06:42 | W.PM.OPSUD ---
Surgery/Procedure H&P Update DATE OF PROCEDURE: March 23, 2025 DATE H&P PERFORMED: 03/21/25 H&P UPDATE INFORMATION: I have reviewed H&P completed within last 30 days, I have examined patient prior to procedure, No changes to prior documentation and Risks and benefits of the procedure reviewed PLANNED PROCEDURE: Operation Date: 03/22/25 11:20 Proposed Procedures p Amputation of right second toe(Right) - Brant Samuel DPM Operation Date: 03/23/25 07:00 Proposed Procedures p Delayed Wound Closure(Right) - Brant Samuel DPM
[2025-03-23] MEDS: sodium chloride 0.9% 1,000 ML 30 ML IV (06:43)
[2025-03-23] MEDS: BUPivacaine 0.5% INJ 30 mL INJECTION (07:13)
[2025-03-23] MEDS: clindamycin 600 MG/50 ML PREMIX 100 MG IV (07:16)
[2025-03-23] MEDS: lidocaine 1% 10 ML INJ 20 ML INJECTION (07:23)
--- NOTE | 2025-03-23 07:45 | ANE.PACU2 ---
Inpatient post-anesthesia follow up: Airway intact: Yes Vital signs: Temperature 98.0 F Pulse Rate 69 Respiratory Rate 16 Blood Pressure 135/66 Pulse Oximetry 98 Oxygen Delivery Me thod Room Air Oxygen Flow Rate 6 Fraction of Inspir ed Oxygen Hydration adequate: Yes Nausea and vomiting: No Pain level: 1 Mental status: Baseline
--- NOTE | 2025-03-23 07:55 | P.BOP_ITS ---
Date of Procedure: 01/10/24 Surgeon: Brant Samuel DPM [employer] Appliance Servicer Helper(s): Adithya Procedure(s) performed: Primary delayed closure right foot. Findings of the procedure(s): None Estimated blood loss: 2 milliliters Specimen(s) removed: None Post-operative diagnosis: Status post right second toe amputation secondary to gangrene
--- NOTE | 2025-03-23 07:56 | PM.OP ---
Operative Report Date of procedure: March 23, 2025 Pre-op diagnosis: Gangrene right second toe. Post-op diagnosis: Gangrene right second toe Post-op findings: Improved soft tissue postdebridement and closure Procedure done: Secondary closure of surgical wound right foot. CPT code 45959 Implants: 4-0 Vicryl, 4-0 nylon Specimens removed/disposition: none Pathology: None Surgeon: Brant Samuel DPM Cotton Ball Machine Tender: Adithya Estimated blood loss: 2 0 IV fluids: See intraoperative documentation Urine output: See intraoperative documentation Complications: None Findings: Improved soft tissue postdebridement right foot. Brief History: 89-year-old female with diabetes and dementia coming from [facility] unit at [place] presents to the emergency department on 03/21/2025 with gangrenous changes to the right second toe which underwent amputation at the metatarsal phalangeal joint 03/22/2025 requiring continued IV antibiotics and further debridement with primary delayed closure. Wound culture from right second toe significant for gram-negative rods. I reviewed at length with the patient, the risks, potential complications, benefits, alternatives, expectations, and typical outcomes associated with the surgery. The risks and potential complications were explained in detail, including but not limited to infection, wound dehiscence or soft tissue complications, bleeding and hematoma, chronic edema, neuritis or nerve damage producing numbness or chronic pain, CRPS, failure to relieve pain or worsening pain, thick / painful / unsightly scar, limited motion / stiffness, malposition, delayed union, malunion, or nonunion, fracture, reaction to implants, anesthetic complications, venous thromboembolism, and deformity recurrence. I discussed the notion of no regrets with the patient as it pertains to complications and outcomes. The patient seemed to understand the nature of the proposed care and required convalescence. They asked appropriate questions, answered to their satisfaction. They are aware no guarantees can be made as to a satisfactory outcome and they understand there may be other possible unforeseen complications or outcomes not listed here that will be treated accordingly if they arise. There were no written or implied guarantees given to the patient. They gave informed consent to proceed. Procedure: Under mild sedation the patient was brought to the operating room and remained on the gurney in supine position. A timeout was performed. Anesthesia was then administered by the anesthesia service. Local anesthesia injected by myself consisting of 20 cc of one-to-one mixture 1% lidocaine and 0.5% Marcaine plain in a right second ray block fashion. Well-padded pneumatic tourniquet applied to the right ankle. Tourniquet was not utilized or inflated during the procedure. Right lower extremity was scrubbed, prepped and draped utilizing normal aseptic technique. Attention was directed to the right forefoot amputation site of the right second toe secondary to gangrene, able to visualize the second metatarsal head which appeared viable. Adjacent soft tissue including flexor and extensor tendons were debrided of devitalized tissue, epidermis, dermis and myofascial layer and tendons debrided sharply with pickups and a 15 blade of all devitalized tissue. The incision was irrigated with saline solution, no further devitalized tissue or infectious tissue appreciated. Wound was then closed in a layered fashion with deep tissues reapproximated with 4-0 Vicryl and skin with 4-0 nylon. Dressing consisting of Xeroform, 4 x 4 gauze, Kerlix and Malachi wrap applied to the right lower extremity. Patient tolerated the procedure and anesthesia well and was transferred to the PACU with vital signs stable and vascular status intact. Following a period of postoperative monitoring she will be transferred back to the floor to continue antibiotics.
[2025-03-23] MEDS: metoprolol tartrate 25 mg Tablet PO ×2 (08:55→17:17)
[2025-03-23] MEDS: levothyroxine 25 mcg Tablet PO (08:55)
[2025-03-23] MEDS: magnesium oxide 400 mg tablet PO ×2 (08:55→17:17)
[2025-03-23] MEDS: hyDRALAzine 25 mg Tablet PO ×2 (08:55→15:11)
[2025-03-23] MEDS: meropenem 500 mg SDV IVP ×2 (08:55→20:47)
[2025-03-23] MEDS: cetirizine 10 mg Tablet PO (08:55)
[2025-03-23] MEDS: escitalopram 10 mg Tablet 20 MG PO (08:55)
[2025-03-23] MEDS: clopidogrel 75 mg Tablet PO (08:55)
--- NOTE | 2025-03-23 10:19 | P.PN_ITS ---
Subjective 2 Subjective: No acute events overnight. Underwent delayed closure with podiatry team today. Tolerated procedure well. On examination postoperatively laying comfortably in bed. Vitals/I&O/Wt Last Vital Signs Temp 98.3 F 03/23/25 09:00 Pulse 75 03/23/25 09:00 Resp 16 03/23/25 09:00 BP 147/68 03/23/25 09:00 Pulse Ox 97 03/23/25 09:00 O2 Del Method Room Air 03/23/25 09:00 O2 Flow Rate 6 03/23/25 07:33 03/22/25 03/23/25 03/23/25 22:59 06:59 14:59 Intake Total 240 / 1130 162.5 / 162.5 Output Total 500 / 510 900 / 1410 2 / 2 Balance -500 / 380 -660 / -280 160.5 / 160.5 Weight last 48 hrs Weight 44.452 kg Weight 44.452 kg Weight 44.633 kg Physical Exam 2 Narrative: CV regular rate and rhythm Lungs clear to auscultation bilaterally Abdomen positive bowel sounds soft Calves no asymmetry Right second toe is dark and ulcerated and moist with odor see image below Const: COMMON NORMALS: no acute distress and average body habitus; negative for patient oriented x3 EXAM LIMITATIONS: altered mental status G ENERAL APPEARANCE: cooperative, comfortable and frail appearing O RIENTATION/CONSCIOUSNESS: Yes awake, Yes oriented to person and Yes confused Neuro: COMMON NORMALS: negative for patient oriented x3 S ENSORIUM/ORIENTATION: Yes oriented to person Urinary Catheter Management: Guerrero: Cath Placed During This Visit: yes Reason for Continuing Indwelling Catheter: Required Immobilization for Trauma or Surgery or Anesthesia Urinary Catheter Date of Insertion: 03/22/25 Urinary Catheter Time of Insertion: 04:57 Data 03/23/25 04:35 03/23/25 04:35 Micro: Microbiology 03/21/25 15:52 Blood Culture - Preliminary Blood NEGATIVE TO DATE 03/22/25 10:40 Gram Stain - Final Toe - #1 03/22/25 11:30 Blood Culture - Preliminary Blood SPECIMEN COLLECTED A&P Assessment and plan (1) Cellulitis of second toe, right: Follow-up blood cultures. Follow-up intraoperative cultures. For now continue with empiric IV vancomycin and meropenem. Leukocytosis has resolved. Underwent right second toe amputation on 03/22. Delayed wound closure on 03/23. Appreciate podiatry recommendations. Weightbearing and wound care as per podiatry team. Physical therapy as a podiatry team. (2) Dementia: Seems to be at baseline. Continue with home dose of Lexapro (3) Non-pressure chronic ulcer of other part of right foot with necrosis of bone: Underwent bedside debridement with podiatry yesterday. Continue wound care as per podiatry team. Betadine wet-to-dry, will offload with heel protector. (4) Open wound of right heel: (5) Diabetic peripheral neuropathy associated with type 2 diabetes mellitus: Plan Hypertension: Goal blood pressure less than 140/90 mmHg. For now continue with home dose of hydralazine, losartan and metoprolol. Renal dysfunction: Normal now. Will continue to monitor. Hypoglycemia: Not diabetic. Hypoglycemia protocol. Continue to monitor blood sugars every 4 hours. Replace magnesium 1 g IV. Continue with oral magnesium supplementation. Cardiac diet Protonix for PUD prophylaxis Hold off on any further IV fluids. Lovenox for DVT prophylaxis. AND PDMP PDMP Reviewed: Not Reviewed Attestations 2 Medical Necessity Statement*: Requires further hospitalization for management of cellulitis and gangrene of the second right toe post amputation, pressure heel ulcer of the right foot, hypoglycemia while safe discharge planning is sought. Diagnoses Cellulitis of second toe, right L03.031 Dementia without behavioral disturbance, psychotic disturbance, mood disturbance, or anxiety, unspecified dementia severity, unspecified dementia type F03.90 Dementia type: unspecified type Dementia severity: unspecified severity Dementia behavioral or psychological symptom: without behavioral, psychotic, or mood disturbance or anxiety Non-pressure chronic ulcer of other part of right foot with necrosis of bone L97.514 Open wound of right heel, initial encounter S91.301A Encounter type: initial encounter Diabetic peripheral neuropathy associated with type 2 diabetes mellitus E11.42
--- NOTE | 2025-03-23 10:23 | PC.CHAP ---
Pastoral Care Encounter/Spiritual Assessment Type of Contact [] Declined production team member visit [] Patient/Family/Request visit [] Outpatient visit [] Follow-up visit [] Physician referral [] Code/Alert [] Routine visit [] Staff referral [] Actively dying [x] Patient sleeping [] Family support [] [] Out of room [] Palliative care [] [] Receiving care in room [] Pre-surgical visit [] Trauma [] Long length of stay [] ICU visit [] Other: Relational/Emotional Strength [] Patient feels connected with others/family/visitors/staff [] Distress [] Loneliness/isolation [] Abandonment Spirituality of Patient [] Person of Swathi [] Attends Alevism of their Swathi [] Believes in Prayer [] Reads Bible or Muslim materials [] There are Spiritual issues to be addressed Cane Feeder Interventions [] Prayer [] Active listening [] Non-anxious presence [] Spiritual/emotional support [] Crisis/trauma care [] Spiritual counseling [] Bereavement support [] Provided bereavement packet [] Provided Bible/devotional materials [] Provided toy/stuffed animal, coloring book to patient or family member [] Provided Communion [] Anointing/[place] [] Salvation [] Completed spiritual assessment [] Other: Impact on Illness or Injury [] Angry [] Fearful [] Anxious [] Often cries [] Exhaustion [] Unable to work [] Unable to attend orthodox [] Unable to walk/stand [] Unable to read [] Unable to drive [] Unable to eat/drink [] Unable to sleep [] Unable to be with family [] Patient intubated [] Other: Summary Time spent with patient
[2025-03-23] MEDS: magnesium sulfate premix 1 GM/100 ML PIGGYBACK IV (10:46)
[2025-03-23 11:26] LABS: Glucose Point of Care 124 mg/dL (70-110)
[2025-03-23 11:28] LABS: Glucose Point of Care 137 mg/dL (70-110)
--- NOTE | 2025-03-23 14:31 | PHA.VACGOAL ---
Vancomycin Goal - Goal Vancomycin Indication:: SSTI - Therapy Day of therpy:: Day []of [] . Actual body weight (kg): 98 lb - Data Labs: WBC 8.74 10^3/uL (3.29-11.43) 03/23/25 04:35 RBC 3.09 10^6/uL (3.85-5.65) L 03/23/25 04:35 Hgb 10.00 g/dL (11.27-16.99) L 03/23/25 04:35 Hct 30.6 % (36-47) L 03/23/25 04:35 MCV 99.0 fl (85-98) H 03/23/25 04:35 MCH 32.4 pg (27-33) 03/23/25 04:35 MCHC 32.7 g/dL (30-55) 03/23/25 04:35 RDW 13.1 % (12.1-15.1) 03/23/25 04:35 Sodium 142 mmol/L (136-145) 03/23/25 04:35 Potassium 3.7 mmol/L (3.5-5.1) 03/23/25 04:35 Chloride 109 mmol/L (98-107) H 03/23/25 04:35 Carbon Dioxide 21 mmol/L (22-29) L 03/23/25 04:35 Anion Gap 15.7 (5-19) 03/23/25 04:35 BUN 8 mg/dL (8-23) 03/23/25 04:35 Creatinine 0.8 mg/dL (0.5-0.9) 03/23/25 04:35 GFR Calculation Not Reportable 03/23/25 04:35 Treatment plan:: new consult Regimen:: 750 MG Q24 H
[2025-03-23 14:42] LABS: Glucose Point of Care 89 mg/dL (70-110)
[2025-03-23] MEDS: VANCOMYCIN ADD-Vantage 750 MG in 0.9% NaCl ADD-Vantage 250 ML 250 MG IV (15:11)
[2025-03-23] MEDS: HYDROcodone-acetaminophen 5-325 mg Tablet 1 TAB PO (15:12)
[2025-03-23] MEDS: ATORVASTATIN 10 MG TABLET PO (17:17)
[2025-03-23 17:57] LABS: Glucose Point of Care 109 mg/dL (70-110)
[2025-03-23] MEDS: enoxaparin 30 mg/0.3 mL Syringe SUBCUT (18:14)
--- NOTE | 2025-03-23 21:11 | PC.NURSE ---
PT HAS HEEL PROTECTORS IN PLACE ON BOTH HEELS AT THIS TIME.
[2025-03-24] VITALS (8 sets, daily range): BP systolic 146–169; BP diastolic 71–91; PULSE 79–99; RESP 16–17; TEMP 36.6–37; O2SAT 93–98
[2025-03-24 02:19] LABS: Glucose Point of Care 118 mg/dL (70-110)
[2025-03-24] MEDS: losartan 50 mg Tablet 25 MG PO (05:23)
[2025-03-24] MEDS: pantoprazole DR 40 mg Tablet PO (05:24)
[2025-03-24 05:27] LABS: Basophils % 0.3 %; Eosinophils # 0.2 10^3/uL (0.0-0.8); Eosinophils % 1.8 %; Hematocrit 30.6 % (36-47); Lymphocytes % 20.9 %; Mean Corpuscular HGB Conc 32.7 g/dL (30-55); Mean Corpuscular Hemoglobin 31.4 pg (27-33); Mean Corpuscular Volume 96.2 fl (85-98); Mean Platelet Volume 8.7 fL (7.4-10.4); Monocytes # 0.8 10^3/uL (0.2-0.9); Monocytes % 8.2 %; Neutrophils # 6.39 10^3/uL (1.8-7.7); Neutrophils % 68.4 %; Nucleated Red Blood Cells % 0 %; Platelet Count 225 10^3/cmm (157-399); Red Blood Count 3.18 10^6/uL (3.85-5.65); Red Cell Distribution Width 13.2 % (12.1-15.1); White Blood Count 9.35 10^3/uL (3.29-11.43)
[2025-03-24 05:49] LABS: Alanine Aminotransferase 7 U/L (0-33); Albumin Level 2.8 g/dL (3.5-5.2); Alkaline Phosphatase 78 U/L (35-105); Anion Gap 16.7 (5-19); Aspartate Amino Transferase 18 U/L (0-32); Blood Urea Nitrogen 9 mg/dL (8-23); Calcium 8.7 mg/dL (8.5-10.5); Carbon Dioxide 20 mmol/L (22-29); Chloride 108 mmol/L (98-107); Creatinine Clr Calc Pharmacy 35.8511; Globulin 2.7 g/dL (1.3-4.6); Glucose 110 mg/dL (65-115); Magnesium 1.9 mg/dL (1.7-2.3); Osmolality Calculated 291 mOsm/kg (285-295); Potassium 3.7 mmol/L (3.5-5.1); Sodium 141 mmol/L (136-145); Total Bilirubin 0.3 mg/dL (0.15-1.2); Total Protein 5.5 g/dL (6.6-8.7)
[2025-03-24 06:30] LABS: Glucose Point of Care 162 mg/dL (70-110)
[2025-03-24] MEDS: meropenem 500 mg SDV IVP ×2 (08:41→21:15)
[2025-03-24] MEDS: metoprolol tartrate 25 mg Tablet PO ×2 (08:42→17:31)
[2025-03-24] MEDS: magnesium oxide 400 mg tablet PO ×2 (08:42→17:31)
[2025-03-24] MEDS: cetirizine 10 mg Tablet PO (08:42)
[2025-03-24] MEDS: clopidogrel 75 mg Tablet PO (08:42)
[2025-03-24] MEDS: levothyroxine 25 mcg Tablet PO (08:42)
[2025-03-24] MEDS: escitalopram 10 mg Tablet 20 MG PO (08:42)
[2025-03-24] MEDS: hyDRALAzine 25 mg Tablet PO ×3 (08:42→21:15)
--- NOTE | 2025-03-24 09:50 | P.PN_ITS ---
Subjective 2 Subjective: Patient seen bedside, was awake and alert. Wearing heel protectors, surgical dressing on right foot is clean dry and intact. Vitals/I&O/Wt Last Vital Signs Temp 97.9 F 03/24/25 08:00 Pulse 91 03/24/25 08:00 Resp 17 03/24/25 08:00 BP 153/79 03/24/25 08:00 Pulse Ox 95 03/24/25 08:00 O2 Del Method Room Air 03/24/25 08:00 O2 Flow Rate 6 03/23/25 07:33 03/23/25 03/24/25 03/24/25 22:59 06:59 14:59 Intake Total 250 / 512.5 0 / 512.5 120 / 120 Output Total 200 / 502 150 / 652 Balance 50 / 10.5 -150 / -139.5 120 / 120 Weight last 48 hrs Weight 103 lb Weight 98 lb Physical Exam 2 Narrative: GENERAL: Patient is alert and oriented ?3 and in no acute distress. The following is a focused bilateral lower extremity exam. VASCULAR: Dorsalis pedis palpable bilaterally. Posterior tibial arteries palpable. Capillary refill time less than 3 seconds to the distal hallux bilaterally. Calf is supple and nontender proximally and distally. NEUROLOGICAL: Protective sensation intact to light touch. DERMATOLOGICAL: Surgical dressings intact at right second toe amputation and right hallux nail avulsion without strikethrough or bleeding, no proximal lymphangitic streaking from dressing at right foot. Unstageable pressure ulcer bilateral heel with eschar Intact without fluctuance or bogginess no periwound erythema warmth or drainage. MUSCULOSKELETAL: Status post right second toe amputation. Urinary Catheter Management: Guerrero: Cath Placed During This Visit: no Data 03/24/25 04:50 03/24/25 04:50 Micro: Microbiology 03/22/25 11:30 Blood Culture - Preliminary Blood NEGATIVE TO DATE 03/22/25 10:40 Gram Stain - Final Toe - #1 Tissue Culture - Preliminary Gram Negative Rods 03/21/25 15:52 Blood Culture - Preliminary Blood NEGATIVE TO DATE A&P Assessment and plan (1) Dementia: (2) Diabetic peripheral neuropathy associated with type 2 diabetes mellitus: (3) Cellulitis of right foot: (4) Non-pressure chronic ulcer of other part of right foot with necrosis of bone: (5) Open wound of right heel: Betadine wet-to-dry, will offload with heel protector. (6) Open wound of left heel: Will offload with heel protector to be dispensed by physical therapy. Plan 89-year-old diabetic female with dementia presents with wound extends to bone right second toe distal phalanx with accompanying cellulitis. Status post right second toe amputation date of operation 03/22/2025. Status post delayed closure right second toe amputation site date of operation 03/23/2025. Surgical dressing is clean dry and intact, heel protectors intact. Bilateral heel protectors intact. Podiatry will follow. PDMP PDMP Reviewed: Not Reviewed Attestations 2 Medical Necessity Statement*: Requires continued antibiotics and wound care Coding Level of Care Code Acute Code for Chg Fwd Diagnoses Dementia without behavioral disturbance, psychotic disturbance, mood disturbance, or anxiety, unspecified dementia severity, unspecified dementia type F03.90 Dementia type: unspecified type Dementia severity: unspecified severity Dementia behavioral or psychological symptom: without behavioral, psychotic, or mood disturbance or anxiety Diabetic peripheral neuropathy associated with type 2 diabetes mellitus E11.42 Cellulitis of right foot L03.115 Non-pressure chronic ulcer of other part of right foot with necrosis of bone L97.514 Open wound of right heel, initial encounter S91.301A Encounter type: initial encounter Open wound of left heel, initial encounter S91.302A Encounter type: initial encounter
--- NOTE | 2025-03-24 10:09 | PC.CHAP ---
Pastoral Care Encounter/Spiritual Assessment Type of Contact [] Declined geochemical laboratory technician visit [] Patient/Family/Request visit [] Outpatient visit [] Follow-up visit [] Physician referral [] Code/Alert [] Routine visit [] Staff referral [] Actively dying [x] Patient sleeping [] Family support [] [] Out of room [] Palliative care [] [] Receiving care in room [] Pre-surgical visit [] Trauma [] Long length of stay [] ICU visit [] Other: Relational/Emotional Strength [] Patient feels connected with others/family/visitors/staff [] Distress [] Loneliness/isolation [] Abandonment Spirituality of Patient [] Person of Swathi [] Attends Orthodoxy of their Swathi [] Believes in Prayer [] Reads Bible or Yazidism materials [] There are Spiritual issues to be addressed Bilingual Sales Consultant Interventions [x] Prayer [] Active listening [] Non-anxious presence [] Spiritual/emotional support [] Crisis/trauma care [] Spiritual counseling [] Bereavement support [] Provided bereavement packet [] Provided Bible/devotional materials [] Provided toy/stuffed animal, coloring book to patient or family member [] Provided Communion [] Anointing/[place] [] Salvation [] Completed spiritual assessment [] Other: Impact on Illness or Injury [] Angry [] Fearful [] Anxious [] Often cries [] Exhaustion [] Unable to work [] Unable to attend lutheran [] Unable to walk/stand [] Unable to read [] Unable to drive [] Unable to eat/drink [] Unable to sleep [] Unable to be with family [] Patient intubated [] Other: Summary Time spent with patient 5 min
--- NOTE | 2025-03-24 11:03 | P.PN_ITS ---
Subjective 2 Subjective: No acute events overnight. Patient has remained hemodynamically stable and afebrile. Laying comfortably in bed. At baseline mentation. Vitals/I&O/Wt Last Vital Signs Temp 97.9 F 03/24/25 08:00 Pulse 91 03/24/25 08:00 Resp 17 03/24/25 08:00 BP 153/79 03/24/25 08:00 Pulse Ox 95 03/24/25 08:00 O2 Del Method Room Air 03/24/25 08:00 O2 Flow Rate 6 03/23/25 07:33 03/23/25 03/24/25 03/24/25 22:59 06:59 14:59 Intake Total 250 / 512.5 0 / 512.5 120 / 120 Output Total 200 / 502 150 / 652 Balance 50 / 10.5 -150 / -139.5 120 / 120 Weight last 48 hrs Weight 46.72 kg Weight 44.452 kg Physical Exam 2 Narrative: CV regular rate and rhythm Lungs clear to auscultation bilaterally Abdomen positive bowel sounds soft Calves no asymmetry Right second toe is dark and ulcerated and moist with odor see image below Const: COMMON NORMALS: no acute distress and average body habitus; negative for patient oriented x3 EXAM LIMITATIONS: altered mental status G ENERAL APPEARANCE: cooperative, comfortable and frail appearing O RIENTATION/CONSCIOUSNESS: Yes awake, Yes oriented to person and Yes confused Neuro: COMMON NORMALS: negative for patient oriented x3 S ENSORIUM/ORIENTATION: Yes oriented to person Urinary Catheter Management: Guerrero: Cath Placed During This Visit: yes Reason for Continuing Indwelling Catheter: Acute Urinary Retention or Obstruction Urinary Catheter Date of Insertion: 03/22/25 Urinary Catheter Time of Insertion: 04:57 Data 03/24/25 04:50 03/24/25 04:50 Micro: Microbiology 03/22/25 11:30 Blood Culture - Preliminary Blood NEGATIVE TO DATE 03/22/25 10:40 Gram Stain - Final Toe - #1 Tissue Culture - Preliminary Gram Negative Rods 03/21/25 15:52 Blood Culture - Preliminary Blood NEGATIVE TO DATE A&P Assessment and plan (1) Cellulitis of second toe, right: Follow-up blood cultures. Follow-up intraoperative cultures. For now continue with empiric IV vancomycin and meropenem. Leukocytosis has resolved. Underwent right second toe amputation on 03/22. Delayed wound closure on 03/23. Appreciate podiatry recommendations. Weightbearing and wound care as per podiatry team. Physical therapy as a podiatry team. (2) Dementia: Seems to be at baseline. Continue with home dose of Lexapro (3) Non-pressure chronic ulcer of other part of right foot with necrosis of bone: Underwent bedside debridement with podiatry yesterday. Continue wound care as per podiatry team. Betadine wet-to-dry, will offload with heel protector. (4) Open wound of right heel: (5) Diabetic peripheral neuropathy associated with type 2 diabetes mellitus: Plan Hypertension: Goal blood pressure less than 140/90 mmHg. For now continue with home dose of hydralazine, losartan and metoprolol. Renal dysfunction: Normal now. Will continue to monitor. Hypoglycemia: Not diabetic. Hypoglycemia protocol. Continue to monitor blood sugars every 4 hours. Replace magnesium 1 g IV. Continue with oral magnesium supplementation. Cardiac diet Protonix for PUD prophylaxis Hold off on any further IV fluids. Lovenox for DVT prophylaxis. AND Plan for the day: Will have to follow-up wound cultures. Currently growing gram-negative rods. Patient allergic to fluoroquinolones. If not sensitive to cefadroxil will have to plan for IV or ertapenem as an outpatient. Await for sensitivities. For now continue with current IV meropenem and vancomycin. Will plan to finish a 10-day course of overall antibiotics for cellulitis. MRSA positive. Concern for possible ESBL. Goal blood pressure less than 140/90 mmHg. Blood pressure slightly elevated. Increase dose of losartan to 50 mg oral daily. PDMP PDMP Reviewed: Not Reviewed Attestations 2 Medical Necessity Statement*: Requires further hospitalization for management of cellulitis and gangrene of the second right toe post amputation, pressure heel ulcer of the right foot, hypoglycemia while safe discharge planning is sought. Diagnoses Cellulitis of second toe, right L03.031 Dementia without behavioral disturbance, psychotic disturbance, mood disturbance, or anxiety, unspecified dementia severity, unspecified dementia type F03.90 Dementia type: unspecified type Dementia severity: unspecified severity Dementia behavioral or psychological symptom: without behavioral, psychotic, or mood disturbance or anxiety Non-pressure chronic ulcer of other part of right foot with necrosis of bone L97.514 Open wound of right heel, initial encounter S91.301A Encounter type: initial encounter Diabetic peripheral neuropathy associated with type 2 diabetes mellitus E11.42
[2025-03-24 11:25] LABS: Glucose Point of Care 201 mg/dL (70-110)
--- NOTE | 2025-03-24 12:34 | PC.SOCIAL ---
IMM Updated Updated pt's son on IMM. No questions voiced. Provided pt a copy. Initialed, dated, & timed a copy & placed in chart.
[2025-03-24 15:28] LABS: Glucose Point of Care 239 mg/dL (70-110)
[2025-03-24] MEDS: VANCOMYCIN ADD-Vantage 750 MG in 0.9% NaCl ADD-Vantage 250 ML 250 MG IV (15:40)
[2025-03-24] MEDS: ATORVASTATIN 10 MG TABLET PO (17:31)
[2025-03-24] MEDS: enoxaparin 30 mg/0.3 mL Syringe SUBCUT (19:02)
[2025-03-24 20:42] LABS: Glucose Point of Care 176 mg/dL (70-110)
[2025-03-24] MEDS: HYDROcodone-acetaminophen 5-325 mg Tablet 1 TAB PO (21:25)
--- NOTE | 2025-03-25 02:22 | PC.NURSE ---
patient in bed with eyes closed. heel protectors on. no signs of discomfort at this time
[2025-03-25 03:31] LABS: Glucose Point of Care 153 mg/dL (70-110)
[2025-03-25 03:54] VITALS: BP 160/77; PULSE 88; RESP 16; TEMP 36.7; O2SAT 94
[2025-03-25 05:07] LABS: Basophils # 0.1 10^3/uL (0.0-0.1); Basophils % 0.5 %; Eosinophils # 0.2 10^3/uL (0.0-0.8); Eosinophils % 1.5 %; Hematocrit 32.2 % (36-47); Lymphocytes # 2.5 10^3/uL (0.8-4.8); Lymphocytes % 23.7 %; Mean Corpuscular HGB Conc 32.6 g/dL (30-55); Mean Corpuscular Hemoglobin 31.9 pg (27-33); Mean Corpuscular Volume 97.9 fl (85-98); Mean Platelet Volume 8.4 fL (7.4-10.4); Monocytes # 0.9 10^3/uL (0.2-0.9); Monocytes % 8.5 %; Neutrophils # 6.89 10^3/uL (1.8-7.7); Neutrophils % 65.4 %; Nucleated Red Blood Cells % 0 %; Platelet Count 245 10^3/cmm (157-399); Red Blood Count 3.29 10^6/uL (3.85-5.65); Red Cell Distribution Width 13.3 % (12.1-15.1); White Blood Count 10.52 10^3/uL (3.29-11.43)
[2025-03-25 05:29] LABS: Magnesium 2.1 mg/dL (1.7-2.3)
[2025-03-25 05:33] LABS: Alanine Aminotransferase 10 U/L (0-33); Albumin Level 2.9 g/dL (3.5-5.2); Alkaline Phosphatase 78 U/L (35-105); Anion Gap 17.9 (5-19); Aspartate Amino Transferase 40 U/L (0-32); Blood Urea Nitrogen 13 mg/dL (8-23); Carbon Dioxide 19 mmol/L (22-29); Chloride 108 mmol/L (98-107); Creatinine Clr Calc Pharmacy 28.2076; Globulin 2.9 g/dL (1.3-4.6); Glucose 147 mg/dL (65-115); Osmolality Calculated 295 mOsm/kg (285-295); Potassium 3.9 mmol/L (3.5-5.1); Sodium 141 mmol/L (136-145); Total Bilirubin 0.4 mg/dL (0.15-1.2); Total Protein 5.8 g/dL (6.6-8.7)
[2025-03-25 06:09] VITALS: BP 160/77
[2025-03-25] MEDS: losartan 50 mg Tablet PO (06:09)
[2025-03-25] MEDS: pantoprazole DR 40 mg Tablet PO (06:10)
[2025-03-25] MEDS: HYDROcodone-acetaminophen 5-325 mg Tablet 1 TAB PO (06:22)
[2025-03-25 08:00] VITALS: BP 163/80; PULSE 96; RESP 16; TEMP 36.6; O2SAT 97
[2025-03-25 08:41] LABS: Glucose Point of Care 162 mg/dL (70-110)
--- NOTE | 2025-03-25 08:45 | P.DS_ITS ---
Discharge Providers 2 Date of Admission: 03/21/25 17:05 Date of Discharge: March 25, 2025 Attending Provider at Admission: Keegan Menon MD Attending Provider at Discharge: Gentry Shore MD Consults: Podiatry: Dr. Samuel Primary Care Provider: Lex Pan MD Diagnoses at Discharge Discharge Diagnosis (1) Dementia: Status: Acute Qualifiers: Dementia behavioral or psychological symptom: without behavioral, psychotic, or mood disturbance or anxiety Dementia severity: unspecified severity Dementia type: unspecified type Qualified Code(s): F03.90 - Unspecified dementia, unspecified severity, without behavioral disturbance, psychotic disturbance, mood disturbance, and anxiety (2) Diabetic peripheral neuropathy associated with type 2 diabetes mellitus: Status: Acute (3) Cellulitis of right foot: Status: Acute (4) Non-pressure chronic ulcer of other part of right foot with necrosis of bone: Status: Acute (5) Open wound of right heel: Status: Acute Qualifiers: Encounter type: initial encounter Qualified Code(s): S91.301A - Unspecified open wound, right foot, initial encounter (6) Open wound of left heel: Status: Acute Qualifiers: Encounter type: initial encounter Qualified Code(s): S91.302A - Unspecified open wound, left foot, initial encounter Reason for Visit 2 Reason for Visit: toe infection Brief History: History as per HPI: Sara Almeida is a 89 year old female lives at [facility] where she was found to have a infected toe. She is diabetic and nonverbal with history of stroke. 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 Patient is not able to answer any questions meaningfully. She does mumble yes and other unintelligible words but does not seem to be reliable in response to questions History from last hospitalization 01/03/2025 Sara Almeida is a 89 year old female with PMH CVA 7 years ago following which she has been nonambulatory, nonverbal, speaks only 1-2 short words and few basic sentences, has been wheelchair-bound. Patient used to live with her son in [facility] and receiving home care until about a month ago when she moved into [facility]. She presented to the emergency room yesterday with hypoglycemia. She received dextrose infusion and was instructed to reduce her Lantus dosing. However this afternoon she returned again from the correction with hypoglycemia. Discharge summary from 01/05/2025 Sara Almeida is an 89-year-old female who presented from nursing facility with hypoglycemia, found to have insulin induced hypoglycemia, acute complicated urinary tract infection with urinary retention, dysphagia, sinus bradycardia, and suspected GI bleed. Her insulin regiment was discontinued. Prior physician discussed diabetes management with son and they made the determination to end all insulin and oral diabetes medications as her A1c is well-controlled. For her dysphagia, she was evaluated by speech therapy and placed to modified diet which she tolerated well. Recommendations to continue this diet at the facility. She is found to have sinus bradycardia for which beta-jennifer was held. She was on a very high beta-jennifer dose prior to presentation. Heart rate recovered. She will be discharged on very low-dose beta-jennifer as to prevent beta-jennifer withdrawal. Her losartan was decreased. Recommend continue to monitor heart rate and blood pressure at facility. She was found to have acute complicated urinary tract infection treated with ceftriaxone and transition to cefdinir at discharge. She was noted to have mild thrombocytopenia while on Plavix. She has a history of stroke and there is concern for possible GI bleed. Family declined workup for GI bleed to prior provider. She will be continued on her PPI. Recommend holding Plavix for 7 days to allow for recovery. Her mentation was found to be at baseline on day of discharge. She will discharge back to facility in stable condition. Would recommend consideration of hospice evaluation at facility if consistent with family's wishes. Hospital Course Hospital Course Patient was admitted to the hospital further evaluation and management of cellulitis of the right second toe along with heel ulcer. There is a concern for possible osteomyelitis for which she underwent or debridement and amputation. During hospitalization her blood cultures remain negative, wound culture is growing gram-negative brooks and coag positive staph. Patient improved well postoperatively with daily dressing changes and cellulitis resolved. She has been discharged back to assisted living with home health on oral antibiotics for 5 more days with advised to follow-up with podiatry team as an outpatient. During hospitalization she was found to have mildly elevated blood pressures for which her home dose of hydralazine has been increased. Physical Exam 2 Narrative: Wound on day of discharge. Const: COMMON NORMALS: no acute distress, average body habitus and alert; negative for patient oriented x3 EXAM LIMITATIONS: altered mental status G ENERAL APPEARANCE: cooperative, comfortable and frail appearing O RIENTATION/CONSCIOUSNESS: Yes awake, Yes oriented to person and Yes confused HENMT: COMMON NORMALS: normocephalic and atraumatic HEAD & SCALP: n ormocephalic and atraumatic Eye: COMMON NORMALS: Equal, round and reactive pupils present PUPIL: Yes Equal, round and reactive pupils present Neck/C-Spine: COMMON NORMALS: full ROM and supple Chest: COMMONS NORMALS: normal inspection of the chest Resp: COMMON NORMALS: normal respiratory effort, No retractions, No use of accessory muscles and clear to auscultation bilaterally AUSCULTATION: clear to auscultation bilaterally Cardio: COMMON NORMALS: regular rate, regular rhythm and No murmurs present (Cardio) RATE: regular rate RHYTHM: regular rhythm OTHER: Palpable dorsalis pedis and posterior tibial arteries left and right foot. Palpable popliteal artery bilaterally. Extremity: COMMON NORMALS: full ROM and no calf tenderness; negative for no pedal edema NARRATIVE EXTREMITY EXAM: Erythema noted to the right second toe GENERAL: Yes deformity Neuro: COMMON NORMALS: moves all extremities and no focal motor deficits; negative for patient oriented x3 SENSORIUM/ORIENTATION: Yes alert and Yes oriented to person SENSORY EXAM: Yes extremities (Diminished protective sensation bilateral lower extremity.) MONOFILAMENT EXAM PERFORMED: Yes M OTOR EXAM: 5/5 motor strength present throughout Psych: COMMON NORMALS: mental status grossly normal, Normal thought process present and cooperative THOUGHT PROCESS: Normal thought process present Skin: COMMON NORMALS: no rashes or lesions noted and no wounds NARRATIVE SKIN EXAM: Wound on day of admission. GENERAL SKIN EXAM: no rashes or lesions noted WOUNDS: Yes wounds noted NAILS: discolored, dystrophic and yellow and thickened Urinary Catheter Management: Guerrero: Cath Placed During This Visit: yes Reason for Continuing Indwelling Catheter: Other Urinary Catheter Date of Insertion: 03/22/25 Urinary Catheter Time of Insertion: 04:57 Discharge Data Studies Completed and Pending Completed Studies During Hospitalization Category Date Time Status XR foot RT min 3V* [id number] Routine Exams 03/22/25 12:26 Completed XR foot RT min 3V* [id number] Stat Exams 03/21/25 15:41 Completed Pending at discharge Category Date Time Status Blood Culture Stat Lab 03/22/25 11:30 Results Tissue Culture and Gram Stain Routine Lab 03/22/25 10:40 Results Vancomycin Trough Timed Lab 03/25/25 13:30 Ordered Pathology: Surgical [PTH] Routine Pth 03/23/25 09:51 Received Radiology Impressions Foot X-Ray 03/22/25 12:26 IMPRESSION: 1. Recent amputation of the right foot 2nd digit since the previous day. Postsurgical changes with edema and soft tissue air in this region. 2. Fracture involving the first digit proximal phalanx, as described above. 3. Limited evaluation. 4. Degenerative and postsurgical changes are demonstrated, as described above. Microbiology 03/22/25 10:40 Toe - #1 Gram Stain - Final 03/22/25 10:40 Toe - #1 Tissue Culture - Preliminary Gram Negative Rods Coag positive Staphylococcus 03/22/25 11:30 Blood Blood Culture - Preliminary NEGATIVE TO DATE 03/21/25 15:52 Blood Blood Culture - Preliminary NEGATIVE TO DATE Laboratory Results WBC 10.52 10^3/uL (3.29-11.43) 03/25/25 04:39 RBC 3.29 10^6/uL (3.85-5.65) L 03/25/25 04:39 Hgb 10.50 g/dL (11.27-16.99) L 03/25/25 04:39 Hct 32.2 % (36-47) L 03/25/25 04:39 MCV 97.9 fl (85-98) 03/25/25 04:39 MCH 31.9 pg (27-33) 03/25/25 04:39 MCHC 32.6 g/dL (30-55) 03/25/25 04:39 RDW 13.3 % (12.1-15.1) 03/25/25 04:39 Plt Count 245 10^3/cmm (157-399) 03/25/25 04:39 MPV 8.4 fL (7.4-10.4) 03/25/25 04:39 Neut % (Auto) 65.4 % 03/25/25 04:39 Lymph % (Auto) 23.7 % 03/25/25 04:39 [place] % (Auto) 8.5 % 03/25/25 04:39 Eos % (Auto) 1.5 % 03/25/25 04:39 Baso % (Auto) 0.5 % 03/25/25 04:39 Neut # (Auto) 6.89 10^3/uL (1.8-7.7) 03/25/25 04:39 Lymph # (Auto) 2.5 10^3/uL (0.8-4.8) 03/25/25 04:39 [place]land # (Auto) 0.9 10^3/uL (0.2-0.9) 03/25/25 04:39 Eos # (Auto) 0.2 10^3/uL (0.0-0.8) 03/25/25 04:39 Baso # (Auto) 0.1 10^3/uL (0.0-0.1) 03/25/25 04:39 Nucleated RBC % (auto) 0 % 03/25/25 04:39 Nucleated RBCs # 0.0 /100WBC 03/25/25 04:39 ESR 12 mm/hr (0-15) 03/21/25 15:52 Sodium 141 mmol/L (136-145) 03/25/25 04:39 Potassium 3.9 mmol/L (3.5-5.1) 03/25/25 04:39 Chloride 108 mmol/L (98-107) H 03/25/25 04:39 Carbon Dioxide 19 mmol/L (22-29) L 03/25/25 04:39 Anion Gap 17.9 (5-19) 03/25/25 04:39 BUN 13 mg/dL (8-23) 03/25/25 04:39 Creatinine 1.0 mg/dL (0.5-0.9) H 03/25/25 04:39 GFR Calculation Not Reportable 03/25/25 04:39 Glucose 147 mg/dL (65-115) H 03/25/25 04:39 POC Glucose 162 mg/dL (70-110) H 03/25/25 08:35 Calculated Osmolality 295 mOsm/kg (285-295) 03/25/25 04:39 Calcium 9.0 mg/dL (8.5-10.5) 03/25/25 04:39 Magnesium 2.1 mg/dL (1.7-2.3) 03/25/25 04:39 Iron 33 ug/dL (37-145) L 03/22/25 11:30 TIBC 169 mcg/dl 03/22/25 11:30 % Saturation 19.5 % (20-50) L 03/22/25 11:30 Unsat Iron Binding 136 ug/dL (112-347) 03/22/25 11:30 Total Bilirubin 0.4 mg/dL (0.15-1.2) 03/25/25 04:39 AST 40 U/L (0-32) H 03/25/25 04:39 ALT 10 U/L (0-33) 03/25/25 04:39 Alkaline Phosphatase 78 U/L (35-105) 03/25/25 04:39 C-Reactive Protein 128.5 mg/L (0.0-4.9) H 03/21/25 15:52 Total Protein 5.8 g/dL (6.6-8.7) L 03/25/25 04:39 Albumin 2.9 g/dL (3.5-5.2) L 03/25/25 04:39 Globulin 2.9 g/dL (1.3-4.6) 03/25/25 04:39 Vitamin B12 801 pg/mL (232-1245) 03/22/25 11:30 Folate 13.3 ng/mL (4.8-37.3) 03/23/25 04:35 Procalcitonin 0.09 ng/mL (0-0.5) 03/22/25 11:30 Nasal MRSA (PCR) Mrsa detected (Not Detecte) A 03/22/25 13:35 Vitals Last Vital Signs Temp 97.8 F 03/25/25 08:00 Pulse 96 03/25/25 08:00 Resp 16 03/25/25 08:00 BP 163/80 03/25/25 08:00 Pulse Ox 97 03/25/25 08:00 O2 Del Method Room Air 03/25/25 08:00 O2 Flow Rate 6 03/23/25 07:33 Discharge Plan Discharge Patient Disposition: Home Health Service Condition: Stable Prescriptions: New linezolid 600 mg tablet 600 mg PO BID 14 Days Qty: 28 0RF cefadroxil 500 mg capsule 500 mg PO Q12H Qty: 14 0RF Continued acetaminophen 325 mg Tablet 650 mg PO Q6H PRN (Reason: Pain) triamcinolone acetonide 0.1 % cream 1 applic TOPICAL BID potassium chloride 20 mEq tablet,ER particles/crystals 20 meq PO QAM losartan 25 mg tablet 25 mg PO QAM cetirizine 10 mg Tablet 10 mg PO DAILY clopidogrel 75 mg Tablet 75 mg PO DAILY levothyroxine 25 mcg Tablet 25 mcg PO DAILY pravastatin 10 mg Tablet 10 mg PO QPM pantoprazole 40 mg Tablet,Delayed Release (Dr/Ec) 40 mg PO QAM furosemide 20 mg Tablet 20 mg PO DAILY escitalopram oxalate 20 mg Tablet 20 mg PO DAILY magnesium oxide 400 mg magnesium Tablet 400 mg PO BID metoprolol tartrate 25 mg tablet 25 mg PO BID Qty: 60 0RF Changed hydralazine 25 mg Tablet 50 mg PO TID 30 Days Qty: 180 0RF Discharge Orders: Discharge Order (Routine); Ordered 03/25/25 Ordered By: Gentry Shore Referrals: [facility] [Outside] [facility] [Outside] Lex Pan MD [Primary Care Provider, Family Practice] - 04/02/25 10:15 am Brant Samuel DPM [Physician, Podiatry] - 03/30/25 2:30 pm Discharge Diet: Regular Discharge Activity: Resume usual activity and Increase activity as tolerated Patient Instructions: Cefadroxil (By mouth), Linezolid (By mouth), Cellulitis (ED), Acute Wound Care (DC), Opioid Safety, Post Anesthesia Care Discharge Attestations 2 Time Spent in Discharge Care*: greater than 30 min Specific Discharge Activities: educating patient, discussing with pcp/other providers, discussing with family caseworker/social workers/dc planners, documenting/other paperwork and evaluating patient/reviewing data Status at Discharge: Cognitive status at discharge: severely impaired cognition , Behavioral status at discharge: cooperative , Functional status at discharge: other assisted ambulation , Overall status at discharge: patient is back to baseline Quality Metrics Clinical Quality Measures [ No reported AMI, CVA or VTE this stay] Coding Level of Care Code 41155 Total time (in minutes) for Discharge: 65 Diagnoses Dementia without behavioral disturbance, psychotic disturbance, mood disturbance, or anxiety, unspecified dementia severity, unspecified dementia type F03.90 Dementia behavioral or psychological symptom: without behavioral, psychotic, or mood disturbance or anxiety Dementia severity: unspecified severity Dementia type: unspecified type Diabetic peripheral neuropathy associated with type 2 diabetes mellitus E11.42 Cellulitis of right foot L03.115 Non-pressure chronic ulcer of other part of right foot with necrosis of bone L97.514 Open wound of right heel, initial encounter S91.301A Encounter type: initial encounter Open wound of left heel, initial encounter S91.302A Encounter type: initial encounter
[2025-03-25] MEDS: escitalopram 10 mg Tablet 20 MG PO (09:15)
[2025-03-25] MEDS: clopidogrel 75 mg Tablet PO (09:15)
[2025-03-25] MEDS: cetirizine 10 mg Tablet PO (09:15)
[2025-03-25] MEDS: hyDRALAzine 25 mg Tablet PO (09:15)
[2025-03-25] MEDS: magnesium oxide 400 mg tablet PO (09:15)
[2025-03-25] MEDS: metoprolol tartrate 25 mg Tablet PO (09:15)
[2025-03-25] MEDS: levothyroxine 25 mcg Tablet PO (09:15)
[2025-03-25] MEDS: meropenem 500 mg SDV IVP (09:16)
--- NOTE | 2025-03-25 09:51 | P.PN_ITS ---
Subjective 2 Subjective: Patient seen bedside, was awake and alert. Wearing heel protectors, surgical dressing on right foot is clean dry and intact. Vitals/I&O/Wt Last Vital Signs Temp 97.8 F 03/25/25 08:00 Pulse 96 03/25/25 08:00 Resp 16 03/25/25 08:00 BP 163/80 03/25/25 08:00 Pulse Ox 97 03/25/25 08:00 O2 Del Method Room Air 03/25/25 08:00 O2 Flow Rate 6 03/23/25 07:33 03/24/25 03/25/25 03/25/25 22:59 06:59 14:59 Intake Total 310 / 490 0 / 490 60 / 60 Output Total 150 / 250 300 / 550 100 / 100 Balance 160 / 240 -300 / -60 -40 / -40 Weight last 48 hrs Weight 101 lb 4.8 oz Weight 103 lb Physical Exam 2 Narrative: Patient is alert and oriented ?3 and in no acute distress. The following is a focused bilateral lower extremity exam. VASCULAR: Dorsalis pedis palpable bilaterally. Posterior tibial arteries palpable. Capillary refill time less than 3 seconds to the distal hallux bilaterally. Calf is supple and nontender proximally and distally. NEUROLOGICAL: Protective sensation intact to light touch. DERMATOLOGICAL: Surgical dressings intact at right second toe amputation and right hallux nail avulsion without strikethrough or bleeding, no proximal lymphangitic streaking from dressing at right foot. Unstageable pressure ulcer bilateral heel with eschar Intact without fluctuance or bogginess no periwound erythema warmth or drainage. Upon removal of dressing right foot appreciate resolution of erythema and cellulitis that was originating from right second toe infection, incision is well coapted with sutures intact and well-healing without erythema warmth, drainage or dehiscence. MUSCULOSKELETAL: Status post right second toe amputation. Urinary Catheter Management: Guerrero: Cath Placed During This Visit: yes Reason for Continuing Indwelling Catheter: Other Urinary Catheter Date of Insertion: 03/22/25 Urinary Catheter Time of Insertion: 04:57 Data 03/25/25 04:39 03/25/25 04:39 Micro: Microbiology 03/22/25 10:40 Gram Stain - Final Toe - #1 Tissue Culture - Preliminary Gram Negative Rods Coag positive Staphylococcus A&P Assessment and plan (1) Cellulitis of second toe, right: Follow-up blood cultures. Follow-up intraoperative cultures. For now continue with empiric IV vancomycin and meropenem. Leukocytosis has resolved. Underwent right second toe amputation on 03/22. Delayed wound closure on 03/23. Appreciate podiatry recommendations. Weightbearing and wound care as per podiatry team. Physical therapy as a podiatry team. (2) Dementia: Seems to be at baseline. Continue with home dose of Lexapro (3) Non-pressure chronic ulcer of other part of right foot with necrosis of bone: Underwent bedside debridement with podiatry yesterday. Continue wound care as per podiatry team. Betadine wet-to-dry, will offload with heel protector. (4) Open wound of right heel: Betadine wet-to-dry, will offload with heel protector. (5) Diabetic peripheral neuropathy associated with type 2 diabetes mellitus: (6) Fracture of right great toe: Nonoperative right great toe fracture, will monitor healing with serial x-rays every 2 weeks. (7) Cellulitis of right foot: (8) Open wound of left heel: Will offload with heel protector to be dispensed by physical therapy. 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 Has right great toe fracture, also observed ingrowing nail of the right great toe. Status post right second toe amputation date of operation 03/22/2025. Status post delayed closure right second toe amputation site date of operation 03/23/2025. Surgical dressing is clean dry and intact, heel protectors intact. Bilateral heel protectors intact. Resolved cellulitis right foot, right second toe amputation incision is well coapted and well-healing no clinical signs of infection. Level of amputation of the right second toe through metatarsal phalangeal joint is curative of source of infection risks of antibiotic coverage for gram-negative rods outweigh benefits as her foot is well-healing without signs of infection at this time. No further surgical intervention anticipated during this hospitalization. Will follow-up in podiatry clinic next week. 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 Coding Level of Care Code Acute Code for [facility] Diagnoses Cellulitis of second toe, right L03.031 Dementia without behavioral disturbance, psychotic disturbance, mood disturbance, or anxiety, unspecified dementia severity, unspecified dementia type F03.90 Dementia behavioral or psychological symptom: without behavioral, psychotic, or mood disturbance or anxiety Dementia severity: unspecified severity Dementia type: unspecified type Non-pressure chronic ulcer of other part of right foot with necrosis of bone L97.514 Open wound of right heel, initial encounter S91.301A Encounter type: initial encounter Diabetic peripheral neuropathy associated with type 2 diabetes mellitus E11.42 Closed displaced fracture of proximal phalanx of right great toe, initial encounter S92.411A Encounter type: initial encounter Fracture type: closed Phalanx: proximal Fracture alignment: displaced Cellulitis of right foot L03.115 Open wound of left heel, initial encounter S91.302A Encounter type: initial encounter
[2025-03-25 12:00] VITALS: BP 152/81; PULSE 88; RESP 15; TEMP 36.4; O2SAT 95
[2025-03-25 12:16] LABS: Glucose Point of Care 181 mg/dL (70-110)
[2025-03-25 13:49] LABS: Vancomycin Trough 15.6 ug/mL (10-15)
--- NOTE | 2025-03-25 13:57 | PC.NURSE ---
Spoke to [facility] who states they will in about an hour.
== END 2025-03-25 15:35 | disposition skilled nursing facility (03) | DRG 256 ==
LOC: ER 20:07 → MEDSURG 20:22
PROVIDERS: Podiatrist Foot & Ankle Surgery; Admitting Provider Internal Medicine; Emergency Provider Emergency Medicine; PCP Family Medicine; Visit Provider Student in an Organized Health Care Education/Training Program
PROC: 0Y6R0Z0 Detachment at Right 2nd Toe, Complete, Open Approach (ICD-10-PCS; principal; 2025-03-22 11:10)
PROC: 0LBV0ZZ Excision of Right Foot Tendon, Open Approach (ICD-10-PCS; CPT 13160; principal; 2025-03-23 07:00)
DX: E11.52 Type 2 diabetes mellitus with diabetic peripheral angiopathy with gangrene (principal); L97.419 Non-pressure chronic ulcer of right heel and midfoot with unspecified severity; L97.429 Non-pressure chronic ulcer of left heel and midfoot with unspecified severity; E11.42 Type 2 diabetes mellitus with diabetic polyneuropathy; E11.621 Type 2 diabetes mellitus with foot ulcer; L97.514 Non-pressure chronic ulcer of other part of right foot with necrosis of bone; E11.22 Type 2 diabetes mellitus with diabetic chronic kidney disease; I12.9 Hypertensive chronic kidney disease with stage 1 through stage 4 chronic kidney disease, or unspecified chronic kidney disease; N18.9 Chronic kidney disease, unspecified; S92.401A Displaced unspecified fracture of right great toe, initial encounter for closed fracture; X58.XXXA Exposure to other specified factors, initial encounter; L03.031 Cellulitis of right toe; F03.90 Unspecified dementia, unspecified severity, without behavioral disturbance, psychotic disturbance, mood disturbance, and anxiety; L60.0 Ingrowing nail; Z86.73 Personal history of transient ischemic attack (TIA), and cerebral infarction without residual deficits; Z87.440 Personal history of urinary (tract) infections; Z99.3 Dependence on wheelchair
CPT/HCPCS: 36415; 36416; 51702; 73630; 80048; 80053; 80202; 82607; 82746; 82962; 83540; 83550; 83735; 84145; 85025; 85651; 86140; 87040; 87070; 87077; 87176; 87186; 87205; 88305; 88311; 96365; 96366; 96367; 96372; 96375; 99285; J0690; J1650; J2185; J2371; J2704; J3010; J3370; J3475; J3480; J3490; J7030; J7050; J9999

== ENCOUNTER 2025-03-26 02:17 | Emergency (ER) | payer MEDICARE, OTHER, SELFPAY ==
[2025-03-26 02:17] VITALS: BP 147/71; PULSE 97; RESP 20; TEMP 36.5; O2SAT 91; BMI 21.2
--- NOTE | 2025-03-26 02:26 | ECG_ITS ---
[facility] Test Date: 2025-03-26 Pat Name: Sara Almeida Department: Room: Gender: Female Reference Library Assistant: : 1935 Requested By: Vince Gonzalez Order Number: [id number] Daniel MD: Trey Kaur M.D. Measurements Intervals [place] Rate: 95 P: 82 MS: 195 QRS: 25 QRSD: 107 T: -77 QT: 406 QTc: 511 Interpretive Statements SINUS RHYTHM LOW QRS VOLTAGE IN PRECORDIAL LEADS [QRS DEFLECTION < 1.0 mV IN CHEST LEADS] POSSIBLE LATERAL MYOCARDIAL INFARCTION , OF INDETERMINATE AGE [30 ms Q WAVE IN I/aVL/V5/V6] PROBABLE INFERIOR MYOCARDIAL INFARCTION , OF INDETERMINATE AGE [35 ms Q WAVE IN II/aVF] Compared to ECG 01/03/2025 09:21:18 Low QRS voltage now present Sinus bradycardia no longer present First degree AV block no longer present Left-axis deviation no longer present Myocardial infarct finding still present Electronically Signed On 03-30-2025 11:47:55 CDT by Trey Kaur M.D. [email or web address]
--- NOTE | 2025-03-26 02:30 | PC.NURSE ---
Pt is unable to answer suicide risk assessment questions due to being non-verbal.
--- NOTE | 2025-03-26 03:00 | W.ED.SOB ---
HPI - SOB/Dyspnea General: Chief Complaint: Shortness of Breath/Dyspnea Stated Complaint: SOB Time Seen by Provider: 03/26/25 02:33 History of Present Illness: HPI Narrative: Patient is a well-appearing 89-year-old female from assisted living seen for suspected shortness of breath. Staff at assisted living note that they measured her oxygen saturation to be 85% and sent to the emergency department. She is nonverbal at baseline and was just discharged from the hospital less than 24 hours ago when she had a toe amputated due to cellulitis. On arrival, she is in no distress and oxygen saturation is 94% on room air with no increased work of breathing. Related Data Home Medications ?Medication ?Instructions ?Recorded ?Confirmed cetirizine 10 mg tablet 10 mg PO DAILY 01/03/25 03/21/25 clopidogrel 75 mg tablet 75 mg PO DAILY 01/03/25 03/21/25 escitalopram oxalate 20 mg tablet 20 mg PO DAILY 01/03/25 03/21/25 furosemide 20 mg tablet 20 mg PO DAILY 01/03/25 03/21/25 levothyroxine 25 mcg tablet 25 mcg PO DAILY 01/03/25 03/21/25 magnesium oxide 400 mg PO BID 01/03/25 03/21/25 pantoprazole 40 mg tablet,delayed 40 mg PO QAM 01/03/25 03/21/25 release pravastatin 10 mg tablet 10 mg PO QPM 01/03/25 03/21/25 acetaminophen 325 mg tablet 650 mg PO Q6H PRN Pain 03/21/25 03/21/25 losartan 25 mg tablet 25 mg PO QAM 03/21/25 03/21/25 potassium chloride 20 mEq 20 meq PO QAM 03/21/25 03/21/25 tablet,extended release(part/cryst) triamcinolone acetonide 0.1 % 1 applic topical BID 03/21/25 03/21/25 topical cream Previous Rx's ?Medication ?Instructions ?Recorded metoprolol tartrate 25 mg tablet 25 mg PO BID #60 tabs 01/05/25 linezolid 600 mg tablet 600 mg PO BID 14 days #28 tabs 03/23/25 cefadroxil 500 mg capsule 500 mg PO Q12H #14 caps 03/25/25 hydralazine 25 mg tablet 50 mg (2 x 25 mg) PO TID 30 days 03/25/25 #180 tabs Allergies Allergy/AdvReac Type Severity Reaction Status Date / Time ciprofloxacin (From Cipro) Allergy Unknown Verified 01/04/25 11:40 Penicillins Allergy Unknown Verified 01/04/25 11:40 propoxyphene (From Darvon) Allergy Unknown Verified 01/04/25 11:40 Sulfa (Sulfonamide Allergy Unknown Verified 01/04/25 11:40 Antibiotics) PFSH ED PFSH: Medical History Urinary retention Acute UTI Social History (Updated 03/21/25 @ 17:38 by Keegan Menon MD) Additional social history: She has DO NOT RESUSCITATE order from [facility] signed by PCP and Sara Almeida on 12/13/2024 Next of kin is son Freddie Almeida [phone] Physical Exam Const: COMMON NORMALS: no acute distress HENMT: COMMON NORMALS: normocephalic and atraumatic HEAD & SCALP: normocephalic and atraumatic Eye: COMMON NORMALS: Equal, round and reactive pupils present, EOMs intact bilaterally and no scleral icterus PUPIL: Yes Equal, round and reactive pupils present Resp: COMMON NORMALS: normal respiratory effort and No retractions Cardio: COMMON NORMALS: regular rate, regular rhythm and No murmurs present (Cardio) RATE: regular rate RHYTHM: regular rhythm GI: COMMON NORMALS: Normal to inspection, nondistended, normoactive bowel sounds present, Soft to palpation and non-tender PALPATION: Yes Soft to palpation Extremity: NARRATIVE EXTREMITY EXAM: Right second toe surgically absent. Dressing not removed. No obvious signs of infection surrounding the dressing. Neuro: OTHER: Alert, at baseline, nonverbal, no distress. No obvious lateralizing deficits of strength or sensation. Skin: COMMON NORMALS: no rashes or lesions noted GENERAL SKIN EXAM: no rashes or lesions noted Course Vital Signs: Vital signs: Vital Signs Temperature 97.7 F 03/26/25 02:17 Pulse Rate 97 03/26/25 02:17 Respiratory Rate 20 H 03/26/25 02:17 Blood Pressure 147/71 03/26/25 02:17 Pulse Oximetry 91 03/26/25 02:17 Oxygen Delivery Me thod Room Air 03/26/25 02:17 MDM - SOB/Dyspnea Medical Decision Making In summary, patient is a generally well-appearing 89-year-old female in no distress. Oxygen saturation was observed for several hours in the emergency department during which time she never became hypoxic even when sleeping. Vital signs are stable. Toe appears to be healing appropriately from surgery. I do not suspect any emergent process warranting workup at this time. EKG was performed upon arrival and shows nothing acute. She will be discharged back to assisted living in stable condition. If staff there feel she requires higher level of care, they can arrange so on a nonemergent basis. No radiology studies performed this visit EKG Data EKG 1: Interpretation: EKG: Time?225?normal sinus rhythm, rate of 95, no ST segment elevation or depression, no T wave inversions, intervals within normal limits. QTc = 458 Discharge Plan Discharge Patient Disposition: Home Clinical Impression: Suspected condition not found Condition: Stable Prescriptions: No Action acetaminophen 325 mg Tablet 650 mg PO Q6H PRN (Reason: Pain) triamcinolone acetonide 0.1 % cream 1 applic TOPICAL BID potassium chloride 20 mEq tablet,ER particles/crystals 20 meq PO QAM losartan 25 mg tablet 25 mg PO QAM linezolid 600 mg tablet 600 mg PO BID 14 Days Qty: 28 0RF cefadroxil 500 mg capsule 500 mg PO Q12H Qty: 14 0RF hydralazine 25 mg Tablet 50 mg PO TID 30 Days Qty: 180 0RF cetirizine 10 mg Tablet 10 mg PO DAILY clopidogrel 75 mg Tablet 75 mg PO DAILY levothyroxine 25 mcg Tablet 25 mcg PO DAILY pravastatin 10 mg Tablet 10 mg PO QPM pantoprazole 40 mg Tablet,Delayed Release (Dr/Ec) 40 mg PO QAM furosemide 20 mg Tablet 20 mg PO DAILY escitalopram oxalate 20 mg Tablet 20 mg PO DAILY magnesium oxide 400 mg magnesium Tablet 400 mg PO BID metoprolol tartrate 25 mg tablet 25 mg PO BID Qty: 60 0RF Discharge Orders: Discharge ED (Routine); Ordered 03/26/25 Ordered By: Vince Martinez Referrals: Lex Pan MD [Primary Care Provider, Family Practice] Discharge Diet: Advance as tolerated Discharge Activity: Increase activity as tolerated Activity Restrictions/Additional Instructions: Patient was observed in the emergency department for several hours during which time oxygen saturation remained above 90% without need for supplementation. Her physical exam is reassuring with no evidence of tachypnea or other signs of respiratory distress. If she requires more care than is available at assisted living, please have the physician and case management team there consider moving her to a higher level of care. There is no emergency requiring emergency department treatment tonight Print Language: Azerbaijani Coding Level of Care Code ED Minute Clerk for Megan Silva
[2025-03-26 03:43] VITALS: BP 137/78; PULSE 90; RESP 18; O2SAT 93
== END 2025-03-26 03:45 | disposition home or self-care (01) ==
PROVIDERS: Emergency Provider Student in an Organized Health Care Education/Training Program; PCP Family Medicine
DX: R06.02 Shortness of breath (principal); Z03.89 Encounter for observation for other suspected diseases and conditions ruled out; Z79.02 Long term (current) use of antithrombotics/antiplatelets; Z98.890 Other specified postprocedural states
CPT/HCPCS: 93005; 99283

== ENCOUNTER 2025-03-26 15:26 | Inpatient (IN) | payer MEDICARE, OTHER, SELFPAY ==
[2025-03-26 15:28] VITALS: BP 148/82; PULSE 94; RESP 16; TEMP 37.1; O2SAT 97; BMI 22.6
--- NOTE | 2025-03-26 15:30 | XRR_ITS ---
PROCEDURE INFORMATION: Exam: XR Chest Exam date and time: 03/26/2025 4:53 PM Age: 89 years old Clinical indication: Shortness of breath; SOB; Post op RT foot surg x 4 days ago TECHNIQUE: Imaging protocol: Radiologic exam of the chest. Views: 1 view. COMPARISON: CR XR chest 1V portable [id number] 01/03/2025 1:05 PM FINDINGS: Lungs: Bilateral lower lobe infiltrates. Pleural spaces: Possible small right pleural effusion. Heart/Mediastinum: Unremarkable. No cardiomegaly. Bones/joints: High-riding right humeral head as previously. XR/XR chest 1V portable [id number] IMPRESSION: 1. Bilateral lower lobe infiltrates. 2. Possible small right pleural effusion.
--- NOTE | 2025-03-26 15:31 | ECG_ITS ---
[facility]25[facility] Pat Name: Sara Almeida Department: Room: Gender: Female Field Project Manager: : 1935 Requested By: Mary Chaudhary Order Number: [id number] Fredy MD: Trey Kaur M.D. Measurements Intervals [place] Rate: 94 P: 77 [place]: 172 QRS: 3 QRSD: 119 T: -44 QT: 383 QTc: 481 Interpretive Statements SINUS RHYTHM INFERIOR MYOCARDIAL INFARCTION , OF INDETERMINATE AGE [40+ ms Q WAVE AND/OR ST/T ABNORMALITY IN II/aVF] ST DEPRESSION, CONSIDER SUBENDOCARDIAL INJURY [0.1+ mV ST DEPRESSION] Compared to ECG 03/26/2025 02:26:06 ST (T wave) deviation now present Myocardial infarct finding still present Electronically Signed On 03-30-2025 11:45:32 CDT by Trey Kaur M.D. [email or web address] [id number]
--- NOTE | 2025-03-26 15:36 | ECG_ITS ---
[facility] Date: 2025-03-26 Pat Name: Sara Almeida Department: Room: [facility] Gender: Female Gun Tester: : 1935 Requested By: Lang Dodd Order Number: [id number] Fredy MD: Trey Kaur M.D. Measurements Intervals [place] Rate: 92 P: 82 [place]: 194 QRS: 18 QRSD: 124 T: -43 QT: 390 QTc: 482 Interpretive Statements SINUS RHYTHM PROBABLE INFERIOR MYOCARDIAL INFARCTION , OF INDETERMINATE AGE [35 ms Q WAVE IN II/aVF] Compared to ECG 03/26/2025 02:26:06 No significant changes Electronically Signed On 03-30-2025 11:45:34 CDT by Trey Kaur M.D. [email or web address] [id number]
--- NOTE | 2025-03-26 15:40 | W.ED.WEAKNES ---
HPI - Weakness General: Chief complaint: Weakness Stated complaint: weakness, SOB Time Seen by Provider: 03/26/25 15:27 Source: EMS Mode of arrival: EMS Limitations: altered mental status History of Present Illness: 89-year-old female who with history of dementia is here from assisted living she recently at a toe amputation they did states that she has been working harder to breathe patient has not been able to give any history due to her dementia no fevers Review of Systems General: Reports: ROS unobtainable due to mental status PFSH ED PFSH: Medical History Urinary retention Acute UTI Social History Additional social history: She has DO NOT RESUSCITATE order from [facility] signed by PCP and Sara Almeida on 12/13/2024 Next of kin is son Freddie Almeida [phone] Physical Exam Const: COMMON NORMALS: negative for patient oriented x3 GENERAL APPEARANCE: in distress HENMT: COMMON NORMALS: normocephalic and atraumatic HEAD & SCALP: normocephalic and atraumatic Eye: COMMON NORMALS: Equal, round and reactive pupils present and EOMs intact bilaterally PUPIL: Yes Equal, round and reactive pupils present Neck/C-Spine: COMMON NORMALS: full ROM and supple Chest: COMMONS NORMALS: normal inspection of the chest Resp: COMMON NORMALS: No retractions and No use of accessory muscles EFFORT & INSPECTION: Yes tachypneic and Yes respiratory distress AUSCULTATION: rales Cardio: COMMON NORMALS: regular rate, regular rhythm and No murmurs present (Cardio) RATE: regular rate RHYTHM: regular rhythm GI: COMMON NORMALS: Normal to inspection, nondistended, normoactive bowel sounds present, Soft to palpation, non-tender and no masses PALPATION: Yes Soft to palpation Extremity: COMMON NORMALS: normal to inspection and full ROM Neuro: COMMON NORMALS: moves all extremities and no focal motor deficits; negative for patient oriented x3 Psych: COMMON NORMALS: cooperative Skin: COMMON NORMALS: no rashes or lesions noted and no wounds GENERAL SKIN EXAM: no rashes or lesions noted Course Vital Signs: Vital signs: Vital Signs Temperature 98.7 F 03/26/25 15:28 Pulse Rate 94 03/26/25 15:28 Respiratory Rate 16 03/26/25 15:28 Blood Pressure 148/82 03/26/25 15:28 Pulse Oximetry 97 03/26/25 15:28 Oxygen Delivery Me thod Room Air 03/26/25 15:28 MDM - Weakness Medical Decision Making Patient presents here with increased work of breathing from skilled nursing has had bilateral pneumonia with elevated white count I spoke to the hospitalist and will admit. Medical Records I reviewed the patient's medical records. Lab Data I reviewed the patient's lab results. 03/26/25 17:10 03/26/25 16:37 Radiology Impressions Chest X-Ray 03/26/25 15:30 IMPRESSION: 1. Bilateral lower lobe infiltrates. 2. Possible small right pleural effusion. Laboratory Results WBC 15.19 10^3/uL (3.29-11.43) H 03/26/25 17:10 Corrected WBC Cancelled 03/26/25 16:37 RBC 3.69 10^6/uL (3.85-5.65) L 03/26/25 17:10 Hgb 11.80 g/dL (11.27-16.99) 03/26/25 17:10 Hct 36.7 % (36-47) 03/26/25 17:10 MCV 99.5 fl (85-98) H 03/26/25 17:10 MCH 32.0 pg (27-33) 03/26/25 17:10 MCHC 32.2 g/dL (30-55) 03/26/25 17:10 RDW 13.5 % (12.1-15.1) 03/26/25 17:10 Plt Count 274 10^3/cmm (157-399) 03/26/25 17:10 MPV 8.9 fL (7.4-10.4) 03/26/25 17:10 Gran % Cancelled 03/26/25 16:37 Neut % (Auto) 85.0 % 03/26/25 17:10 Lymph % (Auto) 9.7 % 03/26/25 17:10 [place]idan % (Auto) 4.5 % 03/26/25 17:10 Eos % (Auto) 0.1 % 03/26/25 17:10 Baso % (Auto) 0.2 % 03/26/25 17:10 Neut # (Auto) 12.93 10^3/uL (1.8-7.7) H 03/26/25 17:10 Lymph # (Auto) 1.5 10^3/uL (0.8-4.8) 03/26/25 17:10 [place] # (Auto) 0.7 10^3/uL (0.2-0.9) 03/26/25 17:10 Eos # (Auto) 0.0 10^3/uL (0.0-0.8) 03/26/25 17:10 Baso # (Auto) 0.0 10^3/uL (0.0-0.1) 03/26/25 17:10 Absolute Gran (auto) Cancelled 03/26/25 16:37 Nucleated RBC % (auto) 0 % 03/26/25 17:10 Nucleated RBCs # 0.0 /100WBC 03/26/25 17:10 Specimen Type Arterial 03/26/25 15:31 Sample Site Radial, right 03/26/25 15:31 ABG pH 7.47 (7.35-7.45) H 03/26/25 15:31 ABG pCO2 25.7 mmHg (35-45) L 03/26/25 15:31 ABG pO2 52.7 mmHg (80.0-100.0) L 03/26/25 15:31 ABG PO2/FiO2 Ratio 250 03/26/25 15:31 ABG HCO3 18.9 mmol/L (22-26) L 03/26/25 15:31 ABG Base Excess -3.4 mmol/L (-2.0-2.0) L 03/26/25 15:31 Leonidas Test Pos 03/26/25 15:31 Hematocrit 36.9 % (37-47) L 03/26/25 15:31 O2 Delivery Device Room air 03/26/25 15:31 FiO2 21.0 % 03/26/25 15:31 Engineering Teacher ID Sandro 03/26/25 15:31 Sodium 140 mmol/L (136-145) 03/26/25 16:37 Potassium 5.1 mmol/L (3.5-5.1) 03/26/25 16:37 Chloride 106 mmol/L (98-107) 03/26/25 16:37 Carbon Dioxide 15 mmol/L (22-29) L 03/26/25 16:37 Anion Gap 24.1 (5-19) H 03/26/25 16:37 BUN 32 mg/dL (8-23) H 03/26/25 16:37 Creatinine 1.9 mg/dL (0.5-0.9) H 03/26/25 16:37 GFR Calculation Not Reportable 03/26/25 16:37 Glucose 377 mg/dL (65-115) H 03/26/25 16:37 Calculated Osmolality 312 mOsm/kg (285-295) H 03/26/25 16:37 Calcium 9.1 mg/dL (8.5-10.5) 03/26/25 16:37 Magnesium 2.3 mg/dL (1.7-2.3) 03/26/25 16:37 Total Bilirubin 0.4 mg/dL (0.15-1.2) 03/26/25 16:37 AST 24 U/L (0-32) 03/26/25 16:37 ALT 10 U/L (0-33) 03/26/25 16:37 Alkaline Phosphatase 91 U/L (35-105) 03/26/25 16:37 Total Protein 6.2 g/dL (6.6-8.7) L 03/26/25 16:37 Albumin 3.0 g/dL (3.5-5.2) L 03/26/25 16:37 Globulin 3.2 g/dL (1.3-4.6) 03/26/25 16:37 TSH 2.16 uIU/mL (0.27-4.20) 03/26/25 16:37 All radiology interpretation(s) finalized by discharge EKG Data EKG 1: I personally reviewed and interpreted this EKG as follows: EKG interpretation date: 03/26/25 EKG interpretation time: 15:48 Interpretation: nsr hr [address] elevation qrs 119 qtc 435 Discharge Plan Discharge Condition: Stable Prescriptions: No Action acetaminophen 325 mg Tablet 650 mg PO Q6H PRN (Reason: Pain) triamcinolone acetonide 0.1 % cream 1 applic TOPICAL BID potassium chloride 20 mEq tablet,ER particles/crystals 20 meq PO QAM losartan 25 mg tablet 25 mg PO QAM linezolid 600 mg tablet 600 mg PO BID 14 Days Qty: 28 0RF cefadroxil 500 mg capsule 500 mg PO Q12H Qty: 14 0RF hydralazine 25 mg Tablet 50 mg PO TID 30 Days Qty: 180 0RF cetirizine 10 mg Tablet 10 mg PO DAILY clopidogrel 75 mg Tablet 75 mg PO DAILY levothyroxine 25 mcg Tablet 25 mcg PO DAILY pravastatin 10 mg Tablet 10 mg PO QPM pantoprazole 40 mg Tablet,Delayed Release (Dr/Ec) 40 mg PO QAM furosemide 20 mg Tablet 20 mg PO DAILY escitalopram oxalate 20 mg Tablet 20 mg PO DAILY magnesium oxide 400 mg magnesium Tablet 400 mg PO BID metoprolol tartrate 25 mg tablet 25 mg PO BID Qty: 60 0RF Referrals: Lex Pan MD [Primary Care Provider, Family Practice] Print Language: Turkish Coding Level of Care Code ED [place] for Chg Fwd Related Data Home Medications ?Medication ?Instructions ?Recorded ?Confirmed cetirizine 10 mg tablet 10 mg PO DAILY 01/03/25 03/21/25 clopidogrel 75 mg tablet 75 mg PO DAILY 01/03/25 03/21/25 escitalopram oxalate 20 mg tablet 20 mg PO DAILY 01/03/25 03/21/25 furosemide 20 mg tablet 20 mg PO DAILY 01/03/25 03/21/25 levothyroxine 25 mcg tablet 25 mcg PO DAILY 01/03/25 03/21/25 magnesium oxide 400 mg PO BID 01/03/25 03/21/25 pantoprazole 40 mg tablet,delayed 40 mg PO QAM 01/03/25 03/21/25 release pravastatin 10 mg tablet 10 mg PO QPM 01/03/25 03/21/25 acetaminophen 325 mg tablet 650 mg PO Q6H PRN Pain 03/21/25 03/21/25 losartan 25 mg tablet 25 mg PO QAM 03/21/25 03/21/25 potassium chloride 20 mEq 20 meq PO QAM 03/21/25 03/21/25 tablet,extended release(part/cryst) triamcinolone acetonide 0.1 % 1 applic topical BID 03/21/25 03/21/25 topical cream Previous Rx's ?Medication ?Instructions ?Recorded metoprolol tartrate 25 mg tablet 25 mg PO BID #60 tabs 01/05/25 linezolid 600 mg tablet 600 mg PO BID 14 days #28 tabs 03/23/25 cefadroxil 500 mg capsule 500 mg PO Q12H #14 caps 03/25/25 hydralazine 25 mg tablet 50 mg (2 x 25 mg) PO TID 30 days 03/25/25 #180 tabs Allergies Allergy/AdvReac Type Severity Reaction Status Date / Time ciprofloxacin (From Cipro) Allergy Unknown Verified 01/04/25 11:40 Penicillins Allergy Unknown Verified 01/04/25 11:40 propoxyphene (From Darvon) Allergy Unknown Verified 01/04/25 11:40 Sulfa (Sulfonamide Allergy Unknown Verified 01/04/25 11:40 Antibiotics)
[2025-03-26 15:43] LABS: ABG PCO2 25.7 mmHg (35-45); ABG PH Result 7.47 (7.35-7.45); Arterial Blood Gas Hematocrit 36.9 % (37-47); Base Excess ABG -3.4 mmol/L (-2.0-2.0); Blood Gas Allen Test Pos; Blood Gas Operator Identificat WALCI; Blood Gas Sample Site Radial, right; Blood Gas Sample Type Arterial; HCO3 ABG 18.9 mmol/L (22-26); Oxygen Device ROOM AIR; PO2 ABG 52.7 mmHg (80.0-100.0); PO2 FiO2 Ratio Arterial Blood 250
--- NOTE | 2025-03-26 16:40 | PC.NURSE ---
ATTEMPTED TO ULTRASOUND PATIENT FOR IV WITH NO SUCCESS. PROVIDER NOTIFIED AND ATTEMPTED IV WELL WITH NO SUCCESS. VERBAL ORDER FROM PROVIDER TO GET BLOOD IF ABLE BUT TO STOP ATTEMPTING IV.
[2025-03-26 17:14] LABS: Add On to Lab Order(s) Added
[2025-03-26 17:15] LABS: Basophils % 0.2 %; Eosinophils % 0.1 %; Hematocrit 36.7 % (36-47); Lymphocytes # 1.5 10^3/uL (0.8-4.8); Lymphocytes % 9.7 %; Mean Corpuscular HGB Conc 32.2 g/dL (30-55); Mean Corpuscular Volume 99.5 fl (85-98); Mean Platelet Volume 8.9 fL (7.4-10.4); Monocytes # 0.7 10^3/uL (0.2-0.9); Monocytes % 4.5 %; Neutrophils # 12.93 10^3/uL (1.8-7.7); Nucleated Red Blood Cells % 0 %; Platelet Count 274 10^3/cmm (157-399); Red Blood Count 3.69 10^6/uL (3.85-5.65); Red Cell Distribution Width 13.5 % (12.1-15.1); White Blood Count 15.19 10^3/uL (3.29-11.43)
[2025-03-26 17:28] LABS: Alanine Aminotransferase 10 U/L (0-33); Alkaline Phosphatase 91 U/L (35-105); Anion Gap 24.1 (5-19); Aspartate Amino Transferase 24 U/L (0-32); Blood Urea Nitrogen 32 mg/dL (8-23); Calcium 9.1 mg/dL (8.5-10.5); Carbon Dioxide 15 mmol/L (22-29); Chloride 106 mmol/L (98-107); Creatinine Clr Calc Pharmacy 16.3011; Globulin 3.2 g/dL (1.3-4.6); Glucose 377 mg/dL (65-115); Magnesium 2.3 mg/dL (1.7-2.3); Osmolality Calculated 312 mOsm/kg (285-295); Potassium 5.1 mmol/L (3.5-5.1); Sodium 140 mmol/L (136-145); Thyroid Stimulating Hormone 2.16 uIU/mL (0.27-4.20); Total Bilirubin 0.4 mg/dL (0.15-1.2); Total Protein 6.2 g/dL (6.6-8.7)
--- NOTE | 2025-03-26 18:29 | PM.HP ---
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 Currently patient is alert to person, not to place, time, she does not follow commands, no family members at bedside, blood pressure 148/82, pulse is 94, temperature 98.7, respiratory 16 she is 97% on room air, she localizes pain, spontaneous eye opening, GCS score is about 10, she is resting comfortably, multiple attempts to reach [place] this, however all my calls were going over to voicemail I spoke to patient's son, discussed Sara's clinical status, her troponin is 1097, EKG shows ST depressions, there is no acute ST-T wave changes, she has no chest pain complaints, I am highly suspicious that she has a hypercoagulable event such as a pulmonary embolism with a recent surgery, ER has ordered CT angiogram of the chest, will start her on a heparin drip, during the last hospitalization she has had issues in terms of anemia concerns for GI bleed we will have to monitor her closely in the ICU on a heparin drip, she certainly could have a pneumonia as the chest x-ray shows bilateral infiltrates with sepsis I put her on broad-spectrum antibiotic therapy, although thought could be stress-induced cardiomyopathy or a cardiovascular event although the EKG shows no acute ST-T wave changes, will discuss with cardiology nonetheless put her on a heparin drip and clinically monitor cardiac echo ordered, discussed morbidity and mortality associate with her underlying condition, she is a DNR/DNI confirmed this with son, son wants to continue medical interventions however if her condition starts to deteriorate, or if she is suffering, or she is suffering significant complications or if the likelihood of meaningful recovery is unlikely he is agreeable to proceed with comfort care, but would want to be kept updated before fully proceeding with comfort care if her condition deteriorates, after discussing the risk and benefits of all options, he voiced understanding, all question answered, shared decision making, agreed to proceed Spoke with cardiology Spoke with the ER provider Review of Systems General: Denies: ROS unobtainable due to mental status Medications/Allergies Home Medications ?Medication ?Instructions ?Recorded ?Confirmed ?Last Taken ?Type cetirizine 10 mg tablet 10 mg PO DAILY 01/03/25 03/21/25 03/21/25 History clopidogrel 75 mg tablet 75 mg PO DAILY 01/03/25 03/21/25 03/21/25 History escitalopram oxalate 20 mg tablet 20 mg PO DAILY 01/03/25 03/21/25 03/21/25 History furosemide 20 mg tablet 20 mg PO DAILY 01/03/25 03/21/25 03/21/25 History levothyroxine 25 mcg tablet 25 mcg PO DAILY 01/03/25 03/21/25 03/21/25 History magnesium oxide 400 mg PO BID 01/03/25 03/21/25 03/21/25 History pantoprazole 40 mg tablet,delayed 40 mg PO QAM 01/03/25 03/21/25 03/21/25 History release pravastatin 10 mg tablet 10 mg PO QPM 01/03/25 03/21/25 03/20/25 History metoprolol tartrate 25 mg tablet 25 mg PO BID #60 tabs 01/05/25 03/21/25 03/21/25 Rx acetaminophen 325 mg tablet 650 mg PO Q6H PRN Pain 03/21/25 03/21/25 Unknown History losartan 25 mg tablet 25 mg PO QAM 03/21/25 03/21/25 03/21/25 History potassium chloride 20 mEq 20 meq PO QAM 03/21/25 03/21/25 03/21/25 History tablet,extended release(part/cryst) triamcinolone acetonide 0.1 % 1 applic topical BID 03/21/25 03/21/25 03/21/25 History topical cream linezolid 600 mg tablet 600 mg PO BID 14 days #28 tabs 03/23/25 Unknown Rx cefadroxil 500 mg capsule 500 mg PO Q12H #14 caps 03/25/25 Unknown Rx hydralazine 25 mg tablet 50 mg (2 x 25 mg) PO TID 30 days 03/25/25 03/21/25 03/21/25 Rx #180 tabs Allergies Allergy/AdvReac Type Severity Reaction Status Date / Time ciprofloxacin (From Cipro) Allergy Unknown Verified 01/04/25 11:40 Penicillins Allergy Unknown Verified 01/04/25 11:40 propoxyphene (From Darvon) Allergy Unknown Verified 01/04/25 11:40 Sulfa (Sulfonamide Allergy Unknown Verified 01/04/25 11:40 Antibiotics) PFSH Acute PFSH: Medical History Urinary retention Acute UTI Social History Additional social history: She has DO NOT RESUSCITATE order from [facility] signed by PCP and Sara Almeida on 12/13/2024 Next of kin is son rFeddie Almeida [phone] Vitals/I&O/Wt Last Vital Signs Temp 98.7 F 03/26/25 15:28 Pulse 94 03/26/25 15:28 Resp 16 03/26/25 15:28 BP 148/82 03/26/25 15:28 Pulse Ox 97 03/26/25 15:28 O2 Del Method Room Air 03/26/25 15:28 Weight last 48 hrs Weight 54.431 kg Physical Exam Const: COMMON NORMALS: no acute distress EXAM LIMITATIONS: altered mental status ORIENTATION/CONSCIOUSNESS: Yes awake, Yes oriented to person and Yes confused; not oriented to place and not oriented to time Eye: COMMON NORMALS: Equal, round and reactive pupils present Neck/C-Spine: COMMON NORMALS: no lymphadenopathy Resp: COMMON NORMALS: normal respiratory effort, No retractions and No use of accessory muscles AUSCULTATION: crackles and wheezes Cardio: COMMON NORMALS: no JVD, regular rate, regular rhythm, S1 normal heart sound present and S2 normal heart sound present RATE: regular rate RHYTHM: regular rhythm HEART SOUNDS: S1 normal heart sound present and S2 normal heart sound present GI: COMMON NORMALS: Normal to inspection, nondistended, normoactive bowel sounds present, Soft to palpation and non-tender : COMMON NORMALS: Yes no CVA tenderness Extremity: COMMON NORMALS: no pedal edema Neuro: OTHER: Does not follow neurologic testing Data 03/26/25 17:10 03/26/25 16:37 A&P Assessment and plan (1) Bilateral pneumonia: (2) Sepsis: (3) Acute encephalopathy: (4) NSTEMI (non-ST elevated myocardial infarction): Plan NSTEMI - EKG showing ST depressions in anterior and inferior leads - Troponin 1097 - Serial EKGs, start troponins, telemetry monitoring - Heparin drip -Cardiac echo - Cardiology consulted Concerns for possible pulmonary embolism - Recent history of foot surgery, immobility - CT angiogram the chest ordered -D-dimer, venous ultrasound - Heparin drip Bilateral pneumonia - Blood cultures - Sputum cultures - Inflammatory markers - Lactic acid - Vancomycin, Zosyn Sepsis - Likely source of bilateral pneumonia Acute encephalopathy with dementia - Likely secondary to sepsis, pneumonia Acute kidney injury - Creatinine 1.9, gentle IV hydration History of anemia, history of GI bleed - Protonix, Carafate Recent history of right foot Hyperglycemia, insulin sliding scale Patient is DNR/DNI confirmed with son multiple times Goals of care continue medical interventions - If her condition does worsen patient son is agreeable to proceed with comfort care, but would like to keep informed, and would like to be called before proceeding PDMP PDMP Reviewed: Not Reviewed Attestations Medical Necessity Statement*: Patient requires hospitalization, inpatient, greater than 2 midnights, NSTEMI, concerns for pulm embolism, bilateral pneumonia, sepsis, URIAH, acute encephalopathy, Diagnoses Bilateral pneumonia J18.9 Sepsis A41.9 Acute encephalopathy G93.40 NSTEMI (non-ST elevated myocardial infarction) I21.4
[2025-03-26 18:30] LABS: Troponin(5th) Baseline 1097 ng/L (0-10)
--- NOTE | 2025-03-26 18:37 | CTR_ITS ---
PROCEDURE INFORMATION: Exam: CTA Chest With Contrast Exam date and time: 03/26/2025 8:16 PM Age: 89 years old Clinical indication: Abnormal findings; Abnormal diagnostic tests; Other: Base trop over 1000. Shortness of breath; SOB with hypoxia with baseline troponin over 1000. TECHNIQUE: Imaging protocol: Computed tomographic angiography of the chest with contrast. Exam focused on the arteries. 3D rendering (Not supervised by radiologist): MIP and/or 3D reconstructed images were created by the technologist. Radiation optimization: All CT scans at this facility use at least one of these dose optimization techniques: automated exposure control; mA and/or kV adjustment per patient size (includes targeted exams where dose is matched to clinical indication); or iterative reconstruction. Contrast material: OMNI 350; Contrast volume: 61 ml; Contrast route: INTRAVENOUS (IV); COMPARISON: CR (CHEST, ) 03/26/2025 4:53 PM RADIATION DOSE METRICS: Total DLP (mGy-cm): 259.94 FINDINGS: Pulmonary arteries: No main or lobar PE. The peripheral arteries are obscured in several places by mild motion as well as truncation and venous contamination artifacts. Aorta: Advanced diffuse vascular calcification noted. No aortic aneurysm. No aortic dissection. Veins: There is reflux of IV contrast into the hepatic venous system. Lungs: Mild COPD. Diffuse interstitial edema and scarring. Prominent areas of dkqzv-hjpyjsy-yxkl-left bibasilar atelectasis or developing pneumonia with adjacent bilateral lower lobe bronchovascular compression. Pleural spaces: Moderate right and small to moderate left pleural effusions. Left lateral pleural low-density thickening on series 12, image 151. Heart: Heart is large. No pericardial effusion. Heart RV/LV ratio: The RV/LV ratio is 0.5. Coronary arteries: Advanced coronary atherosclerotic calcifications are present. Lymph nodes: Mild likely reactive mediastinal lymphadenopathy. Gallbladder and biliary ducts: The gallbladder may be absent. Bones/joints: Moderate spine DJD. Soft tissues: Diffuse anasarca. Other findings: The exam is motion limited. CT/CT angio chest PE protcl [id number] IMPRESSION: 1. No definite or central PE. Due to the above-described limitations, subtle ones would be missed or obscured, especially in both peripheral lower lungs, due to compression from the infiltrates/consolidations and effusions. No RV enlargement. 2. Large heart with areas of bbwkl-xawumsl-mdwm-left mid to lower lung atelectasis or pneumonia with evidence of CHF or positive fluid balance. Components of edema also likely. 3. Other findings above. Suggest 1 to 2 month follow-up.
[2025-03-26 18:50] LABS: Glucose Point of Care 399 mg/dL (70-110)
[2025-03-26 18:57] LABS: Procalcitonin 0.18 ng/mL (0-0.5)
[2025-03-26] MEDS: cefTRIAXone 1,000 mg SDV 1000 MG IVP (18:59)
[2025-03-26 19:00] VITALS: BP 137/84; PULSE 105; O2SAT 93
[2025-03-26] MEDS: AZITHROMYCIN ADD-Vantage 500 MG in 0.9% NaCl ADD-Vantage 250 ML 250 MG IV (19:00)
[2025-03-26] MEDS: sodium chloride 0.9% 1,000 ML 999 ML IV ×2 (19:00→23:30)
[2025-03-26 19:09] LABS: Ferritin 331 ng/mL (15-150)
[2025-03-26 19:17] LABS: D Dimer 0.88 ug/mLFEU (0-0.59)
[2025-03-26 19:25] LABS: Troponin 5 2HR 1139 ng/L (0-10); Troponin 5 2HR Delta 42 ABS# (0-10)
--- NOTE | 2025-03-26 19:52 | CTR_ITS ---
PROCEDURE INFORMATION: Exam: CT Head Without Contrast Exam date and time: 03/26/2025 8:13 PM Age: 89 years old Clinical indication: Altered mental status/memory loss; AMS. Patient non verbal except for grunting with fixed left eye gaze. ; Additional info: Weakness TECHNIQUE: Imaging protocol: Computed tomography of the head without contrast. Radiation optimization: All CT scans at this facility use at least one of these dose optimization techniques: automated exposure control; mA and/or kV adjustment per patient size (includes targeted exams where dose is matched to clinical indication); or iterative reconstruction. COMPARISON: CT head wo con* [id number] 01/12/2025 12:23 AM RADIATION DOSE METRICS: Total DLP (mGy-cm): 733.19 FINDINGS: Brain: Age-related brain parenchymal atrophy. Areas of hypoattenuation in the periventricular and subcortical deep white matter likely on the basis of chronic microvascular ischemic changes. There has been interval development of some wispiness to the prominent extra-axial fluid involving the left frontal convexity.. No mass effect or midline shift. No definitive CT evidence of acute territorial infarction. Overall similar appearance of chronic infarct and resultant encephalomalacia involving the right middle cerebral artery vascular distribution. Cerebral ventricles: Prominence of the lateral ventricular system likely on the basis of parenchymal volume loss. Paranasal sinuses: Visualized sinuses are unremarkable. No fluid levels. Mastoid air cells: Visualized mastoid air cells are well aerated. Bones: Intact calvarium. Soft tissues: Unremarkable. CT/CT head wo con* [id number] IMPRESSION: 1. Interval development of some wispiness to the extra-axial space in the left frontal convexity . This likely represents an area of artifact rather than hemorrhage. Follow up with a brain MRI is recommended for further evaluation. 2. Senescent changes. Old right MCA distribution infarct.
[2025-03-26 19:57] LABS: Lactic Sepsis W/Reflex 5.9 mmol/L (0.5-2.2)
--- NOTE | 2025-03-26 20:09 | PC.NURSE ---
PATIENT WAS TO GO TO CT, CT REPORTED TO THIS NURSE THAT PATIENT HAD A BOWEL MOVEMENT AND HAD HANDS IN IT. UPON ENTERING ROOM, THIS NURSE NOTICED THE PATIENT WAS FOAMING AT THE MOUTH AND HAD WHAT APPEARED TO BE AGONAL BREATHING. PATIENT HAS A LEFT SIDED FIXED GAZE WHICH IS A NEW FINDING AND IS NOT THE BASELINE FOR HER. REPORTED FINDINGS TO DR. ELLIS AND ORDERED HEAD CT TO ADD ON. ATTEMPTED TO CALL [facility] WITH NO ANSWER. WILL FOLLOW UP AND ATTEMPT TO CALL [facility] AGAIN. PATIENT CLEANED AND BED CHANGED PRIOR TO CT.
[2025-03-26] MEDS: iohexol 350 mg/mL 500 mL Btl (per mL) IV (20:15)
[2025-03-26 20:35] LABS: NT Pro B Type Natriuretic Pept > 70000 pg/mL (0-450)
[2025-03-26 20:42] VITALS: BP 103/73; PULSE 93; O2SAT 94
[2025-03-26 20:45] LABS: Reflex Lactate Order REFLEX LACTIC ORDERD
[2025-03-26 20:51] LABS: Bilirubin Urine Negative (Negative); Blood Urine Trace (Negative); Glucose Urine UA Trace (Normal); Ketones Urine 1+ (Negative); Leukocyte Esterase Urine 1+ (Negative); Nitrate Urine Negative (Negative); Protein Urine 2+ (Negative); Specific Gravity, Urine 1.025 (1.005-1.030); Urine Appearance Cloudy (CLEAR); Urine Color Dark Yellow (Yellow)
[2025-03-26 20:59] LABS: Add Urine Microscopic? YES; Bacteria Urine None Seen /hpf; RBC Urine 21-50 /hpf (0-2)
--- NOTE | 2025-03-26 21:00 | P.PN_ITS ---
Subjective 2 Subjective: 89-year-old female admitted wi th pneumonia and [place]. I was called by Rosalind her nurse to evaluate mental status change. For about 45 minutes the patient stared up into the left with a fixed gaze. There was concern for stroke or seizure. Dr. Chaudhary added CT scan of the head which showed her old stroke responsive though nonverbal at what appears to be her baseline. Patient had recent right second toe amputation for necrotic toe. Dr. Dodd had discussion with patient's son today. We are continue with antibiotic and supportive care. CODE STATUS is DNR and would consider comfort care if patient worsening Vitals/I&O/Wt Last Vital Signs Temp 98.7 F 03/26/25 15:28 Pulse 93 03/26/25 20:42 Resp 16 03/26/25 15:28 BP 103/73 03/26/25 20:42 Pulse Ox 94 03/26/25 20:42 O2 Del Method Room Air 03/26/25 20:42 Weight last 48 hrs Weight 54.431 kg Physical Exam 2 Narrative: General Well-developed thin female responsive but not cooperative. Gaze is no longer deviated pupils are equal but she does not allow pupillary exam with light CV regular rate and rhythm lungs moving air bilaterally Abdomen soft Legs she has heel ulcers dry bilaterally Data 03/26/25 17:10 03/26/25 16:37 Micro: Microbiology 03/26/25 18:37 Blood Culture - Preliminary Blood SPECIMEN COLLECTED 03/26/25 18:36 Blood Culture - Preliminary Blood SPECIMEN COLLECTED A&P Assessment and plan (1) Acute encephalopathy: Resolved to baseline (2) Sepsis: Patient has improved in her admission will be changed to medical floor from ICU (3) NSTEMI (non-ST elevated myocardial infarction): Continue to follow enzymes. Hemodynamically she is stable (4) Bilateral pneumonia: Continue antibiotics as ordered by Dr. Dodd. Patient has improved and will be transferred to the medical floor (5) Open wound of left heel: Start heel protector (6) Open wound of right heel: Start heel protector PDMP PDMP Reviewed: Not Reviewed Attestations 2 Medical Necessity Statement*: Patient will require greater than 2 additional midnights in the hospital Coding Level of Care Code Acute Code for [facility] Diagnoses Acute encephalopathy G93.40 Sepsis A41.9 NSTEMI (non-ST elevated myocardial infarction) I21.4 Bilateral pneumonia J18.9 Open wound of left heel, initial encounter S91.302A Encounter type: initial encounter Open wound of right heel, initial encounter S91.301A Encounter type: initial encounter Time Spent (min) 33
[2025-03-26 21:02] LABS: UA Slide Review UA Slide Review Perf
[2025-03-26 21:40] LABS: Hematocrit 33.7 % (36-47)
[2025-03-26 21:50] VITALS: BP 125/89; PULSE 98; RESP 25; O2SAT 93
[2025-03-26 22:10] LABS: Creatine Phosphokinase 197 U/L (26-192)
[2025-03-26 22:32] LABS: Lactic Acid level (Lactate) 8.1 mmol/L (0.5-2.2); Troponin 5 6HR 1351 ng/L (0-10); Troponin 5 6HR Delta 254 ng/L (0-12)
[2025-03-26 22:36] VITALS: BP 137/89; PULSE 106; RESP 22; O2SAT 94
[2025-03-26 22:50] LABS: Anion Gap 25.6 (5-19); Carbon Dioxide 14 mmol/L (22-29); Chloride 106 mmol/L (98-107); Glucose 356 mg/dL (65-115); Potassium 4.6 mmol/L (3.5-5.1); Sodium 141 mmol/L (136-145)
--- NOTE | 2025-03-26 22:57 | PC.NURSE ---
Patient arrived from ED in [facility]. Currently patient has eyes open but shuts them tight when eye are being assessed. Does not follow any commands such as squeezing this nurses hands or giving a thumbs up. Patient not answering orientation questions as per baseline is nonverbal per doctors note. Responds to pain. Wounds dressed and vital signs obtained.
--- NOTE | 2025-03-26 23:06 | ECG_ITS ---
[facility] Test Date: 2025-03-26 Pat Name: Sara Almeida Department: Room: 112 Gender: Female Senior Procurement Manager: : [id number] Requested By: Lang Dodd Order Number: [id number] Reading MD: SOPHIA VILLALBA Measurements Intervals [place] Rate: 110 P: 74 MD: 207 QRS: -2 QRSD: 110 T: 219 QT: 392 QTc: 530 Interpretive Statements SINUS TACHYCARDIA INFERIOR MYOCARDIAL INFARCTION , OF INDETERMINATE AGE [40+ ms Q WAVE AND/OR ST/T ABNORMALITY IN II/aVF] ANTEROLATERAL MYOCARDIAL INFARCTION , PROBABLY RECENT [40+ ms Q WAVE IN I/aVL/V3-V6] ACUTE PR Compared to ECG 03/26/2025 15:48:55 Sinus rhythm no longer present ST (T wave) deviation no longer present Myocardial infarct finding still present Electronically Signed On 03-31-2025 23:00:58 CDT by SOPHIA VILLALBA [email or web address]
[2025-03-26] MEDS: meropenem 500 mg SDV IVP (23:31)
[2025-03-26] MEDS: pantoprazole 40 mg SDV IVP (23:31)
[2025-03-26] MEDS: VANCOMYCIN ADD-Vantage 1,000 MG in 0.9% NaCl ADD-Vantage 250 ML 250 MG IV (23:31)
[2025-03-27] VITALS (32 sets, daily range): BP systolic 108–136; BP diastolic 71–93; PULSE 86–111; RESP 20–29; TEMP 36.3–36.7; O2SAT 71–94
[2025-03-27 00:35] LABS: Blood Urea Nitrogen 32 mg/dL (8-23); Calcium 8.3 mg/dL (8.5-10.5); Creatinine Clr Calc Pharmacy 14.7865; Osmolality Calculated 313 mOsm/kg (285-295)
--- NOTE | 2025-03-27 01:01 | P.PN_ITS ---
Subjective 2 Subjective: I was called to evaluate 89-year-old female who developed left upper gaze and nonresponsiveness to painful and verbal stimuli. This had occurred previous evening in the emergency department and persisted for 45 minutes before she became responsive once again. She has baseline dementia and is nonverbal from stroke. Her CT scan done for previous episode showed old stroke. Vitals/I&O/Wt Last Vital Signs Temp 98.7 F 03/26/25 15:28 Pulse 106 H 03/26/25 22:36 Resp 22 H 03/26/25 22:36 BP 137/89 03/26/25 22:36 Pulse Ox 94 03/26/25 22:36 O2 Del Method Room Air 03/26/25 23:01 03/26/25 03/26/25 03/27/25 14:59 22:59 06:59 Intake Total 1000 / 1000 250 / 1250 Balance 1000 / 1000 250 / 1250 Weight last 48 hrs Weight 48.733 kg Weight 54.431 kg Physical Exam 2 Narrative: General well-developed thin elderly female puffing her cheeks when she breathes drooling mildly gazes to the upper left. Pupils are equally round and reactive at 5 mm but she is not tracking. Right arm decreased tone not moving spontaneously left arm stiff similar to previous exam when she was not in acute seizure or episode CV regular rate and rhythm Lungs clear Data 03/26/25 21:30 03/26/25 21:30 Micro: Microbiology 03/26/25 18:37 Blood Culture - Preliminary Blood SPECIMEN COLLECTED 03/26/25 18:36 Blood Culture - Preliminary Blood SPECIMEN COLLECTED A&P Assessment and plan (1) Seizure: I think the patient is having intermittent seizures and that the 45 minutes of unresponsiveness previous evening was postictal condition. We are going to give her 1 mg IV and then load her with 20 mg/kg levetiracetam x 2 doses. Can switch to oral thereafter (2) NSTEMI (non-ST elevated myocardial infarction): Acute WA with rising troponin still not peaked. CK was only 197 (3) Metabolic acidosis: Serum bicarb is 14. Will start on bicarb drip (4) Diabetes mellitus: Blood sugars elevated. Change sliding scale to with meals and bedtime as opposed to just with meals PDMP PDMP Reviewed: Not Reviewed Attestations 2 Medical Necessity Statement*: Patient remained in the hospital for expected greater than 2 midnight Coding Level of Care Code 29599 Diagnoses Seizure R56.9 NSTEMI (non-ST elevated myocardial infarction) I21.4 Metabolic acidosis E87.20 Diabetes mellitus E11.9 Time Spent (min) 35
[2025-03-27 01:27] LABS: Hematocrit 34.9 % (36-47)
[2025-03-27] MEDS: heparin drip 25,000 UNIT/500 ML PREMIX 15 UNIT IV (01:27)
[2025-03-27] MEDS: LORazepam 2 mg/mL INJ 1 mL 1 MG IVP ×2 (01:29→21:55)
--- NOTE | 2025-03-27 01:53 | PC.NURSE ---
Around 0100 this nurse and co-work found patient grunting in bed noticing that she has left gaze deviation. Dr. Menon called about situation. MD at bedside received order to give 1mg of ativan IVP now. See other orders placed by MD. Lab arrived shortly after to get h/h. Left upper arm PIV sluggish to pull. Notified Dr. Menon that two attempts by this nurse were done for an IV as well as US guide IV by ICU nurse. Unable to establish second access line. Dr. Menon on phone with son regarding central line placement.
--- NOTE | 2025-03-27 03:16 | PM.ACPR ---
Procedure/Consent Time out: Time Out Performed: Yes (With CHICHI Barragan) Consent: Consent for Procedure: Consent obtained from other (indicate) (Son Freddie Almeida), Risks & Benefits reviewed and Agrees to proceed with procedure Additional Consent Information: two person verbal consent with Laurel CADET will sign when he comes in Procedure Narrative: Patient was placed in supine position. The timeout was given I ultrasounded and identified the left femoral artery and vein. Unfortunately the left femoral vein was sitting just medial and under the artery. I prepped the skin x 2. I then flushed all the ports draped the patient and prepped the skin again. The ultrasound covered with the condom and I identified the artery once again. I was able to anesthetize the subcutaneous tissue and puncture the vein with the anesthetic needle but utilizing the introducer needle I was not successful and ultimately punctured the artery. There is small hematoma and I held pressure. I then looked again with the ultrasound and was successful in cannulating the left femoral vein. Guidewire was passed freely. Dilator was utilized. Unfortunately the safety scalpel would not function and we had to wait before I could obtain an old-fashioned 10 blade. The skin was nicked and I advanced the dilator. Dilator removed. Triple-lumen catheter was passed into place and guidewire was removed. All ports aspirated then flushed. Area was prepped again and dressed with included dressings. No other complications Acute Procedures Central Line Placement: Left Femoral: Patient placed on monitor/pulse ox: Yes MD prep: mask, gown, gloves and other (cap) Central line prep: Chlorhexidine scrub (x2 then draped and prepped again fo #3) Local anesthesia used: lidocaine 2% (4cc) Amount of anesthesia used (ml): 4 Ultrasound used for placement: Yes Central line lumen inserted: triple Post procedure: sutured in place, good blood return, all ports aspirated, flushed, capped and sterile dressing applied Patient tolerated procedure: well and other (Left femoral artery punctured with return of red blood modest hematoma pressure was held and hematoma resolved or did not expand) Epistaxis Control: Time out performed: Yes (With CHICHI Barragan)
--- NOTE | 2025-03-27 03:18 | PC.NURSE ---
Addendum entered by Laurel Duke RN 03/27/25 04:06: Prior to central line placement and this nurse received verbal confirmation from son Freddie Almeida to go ahead with the central line. Dr. Menon at bedside around 0214 for placement and ended at 0319. VSS throughout procedure and patient asleep. Per Dr. Menon okay to use line. Also clarified Keppra order and is okay giving 1000 Q12hr as we did not have the 900 dose ordered. Original Note: Dr. Menon at bedside for central line, time out done. At 0319 Dr. Menon finished with central line placement.
[2025-03-27] MEDS: metoprolol tartrate 1 mg/1 mL SDV 5 mL 5 MG IVP (03:19)
[2025-03-27] MEDS: FUROsemide 10 mg/mL SDV 2mL 20 MG IVP (03:19)
[2025-03-27] MEDS: sodium bicarbonate 150 MEQ in dextrose 5% 1,000 ML IV ×2 (03:29→12:45)
[2025-03-27 04:31] LABS: Base Excess VBG -8.3 mmol/L (-3.0-3.0); Blood Gas Operator Identificat gerca; Blood Gas Sample Site Femoral, left; Blood Gas Sample Type Venous; HCO3 VBG 17.1 mmol/L (24-28); Oxygen Device ROOM AIR; PCO2 VBG 34.1 mmHg (41-51); PO2 VBG 27.2 mmHg (25-40); Venous Blood Gas Hematocrit 32.4 % (37-47); pH VBG 7.31 (7.32-7.42)
[2025-03-27 05:47] LABS: Basophils % 0.1 %; Hematocrit 29.9 % (36-47); Lymphocytes # 1.1 10^3/uL (0.8-4.8); Lymphocytes % 7.5 %; Mean Corpuscular HGB Conc 32.4 g/dL (30-55); Mean Corpuscular Volume 98.7 fl (85-98); Mean Platelet Volume 9.3 fL (7.4-10.4); Monocytes # 0.5 10^3/uL (0.2-0.9); Monocytes % 3.3 %; Neutrophils # 12.31 10^3/uL (1.8-7.7); Neutrophils % 88.1 %; Nucleated Red Blood Cells % 0 %; Platelet Count 245 10^3/cmm (157-399); Red Blood Count 3.03 10^6/uL (3.85-5.65); Red Cell Distribution Width 13.7 % (12.1-15.1); White Blood Count 13.98 10^3/uL (3.29-11.43)
[2025-03-27 06:07] LABS: Alanine Aminotransferase 146 U/L (0-33); Albumin Level 2.8 g/dL (3.5-5.2); Alkaline Phosphatase 82 U/L (35-105); Anion Gap 21.8 (5-19); Aspartate Amino Transferase 300 U/L (0-32); Blood Urea Nitrogen 33 mg/dL (8-23); Carbon Dioxide 16 mmol/L (22-29); Chloride 108 mmol/L (98-107); Creatinine Clr Calc Pharmacy 15.5647; Globulin 2.2 g/dL (1.3-4.6); Glucose 347 mg/dL (65-115); Osmolality Calculated 313 mOsm/kg (285-295); Potassium 4.8 mmol/L (3.5-5.1); Sodium 141 mmol/L (136-145); Total Bilirubin 0.3 mg/dL (0.15-1.2)
[2025-03-27 06:35] LABS: Troponin T (5th) Once 3866 ng/L (0-10)
[2025-03-27] MEDS: levETIRAcetam 750 MG in sodium chloride 0.9% (100 ml) 100 ML 430 MG IV (06:52)
[2025-03-27 06:53] LABS: Lactic Sepsis W/Reflex 6.1 mmol/L (0.5-2.2)
[2025-03-27 07:14] LABS: Reflex Lactate Order REFLEX LACTIC ORDERD
[2025-03-27 07:47] LABS: Glucose Point of Care 410 mg/dL (70-110)
--- NOTE | 2025-03-27 08:09 | PHA.VACGOAL ---
Vancomycin Goal - Goal Vancomycin Goal:: 15-20 mg/L Vancomycin Indication:: Pneumonia - Therapy Current therapy:: Meropenem Day of therpy:: Day [1]of [] . Actual body weight (kg): 48.733 kg - Data Labs: WBC 13.98 10^3/uL (3.29-11.43) H 03/27/25 04:25 Corrected WBC Cancelled 03/26/25 16:37 RBC 3.03 10^6/uL (3.85-5.65) L 03/27/25 04:25 Hgb 9.70 g/dL (11.27-16.99) L 03/27/25 04:25 Hct 29.9 % (36-47) L 03/27/25 04:25 MCV 98.7 fl (85-98) H 03/27/25 04:25 MCH 32.0 pg (27-33) 03/27/25 04:25 MCHC 32.4 g/dL (30-55) 03/27/25 04:25 RDW 13.7 % (12.1-15.1) 03/27/25 04:25 Sodium 141 mmol/L (136-145) 03/27/25 04:25 Potassium 4.8 mmol/L (3.5-5.1) 03/27/25 04:25 Chloride 108 mmol/L (98-107) H 03/27/25 04:25 Carbon Dioxide 16 mmol/L (22-29) L 03/27/25 04:25 Anion Gap 21.8 (5-19) H 03/27/25 04:25 BUN 33 mg/dL (8-23) H 03/27/25 04:25 Creatinine 1.9 mg/dL (0.5-0.9) H 03/27/25 04:25 GFR Calculation Not Reportable 03/27/25 04:25 Treatment plan:: new consult Regimen:: New start vancomycin for bilateral pneumonia. Prior vancomycin history found from 03/25/25. Patient renal function since this admission has decreased significantly. Baseline Scr during this admission from 2 days ago 0.8-1.0 mg/dL. Scr now 2.0 mg/dL. Received 1000 mg vancomycin upon admission. Will start patient on intermittent dosing post load dose.
--- NOTE | 2025-03-27 08:26 | PC.NURSE ---
Spoke to Dr. Menon regarding keppra order as the 1000mg dose was changed to a different time and patient still has not received keppra. Received orders to given 750 of Keppra BID with a dose starting now.
[2025-03-27 08:28] LABS: Partial Thromboplastin Time 86.8 SECONDS (23.9-36.7)
[2025-03-27] MEDS: insulin lispro 100 unit/1 mL SUBCUT ×2 (08:31→12:44)
[2025-03-27 09:19] LABS: Lactic Acid level (Lactate) 5.3 mmol/L (0.5-2.2)
[2025-03-27 09:36] LABS: Add Urine Microscopic? YES; Bacteria Urine None Seen /hpf; Bilirubin Urine Negative (Negative); Blood Urine 2+ (Negative); Glucose Urine UA Negative (Normal); Hyaline Casts Urine 23.57 /lpf; Ketones Urine Negative (Negative); Leukocyte Esterase Urine Trace (Negative); Nitrate Urine Negative (Negative); Protein Urine Negative (Negative); RBC Urine 21-50 /hpf (0-2); Specific Gravity, Urine 1.011 (1.005-1.030); Squamous Epithelial Cell Urine 0-5 /hpf (0-5); Urine Appearance Clear (CLEAR); Urine Color Yellow (Yellow); Urobilinogen Urine 0.2 mg/dL (Negative); WBC Urine 0-5 /hpf (0-5)
[2025-03-27 09:50] LABS: UA Slide Review UA Slide Review Perf
[2025-03-27 09:51] LABS: Add Urine Culture? Yes
--- NOTE | 2025-03-27 10:10 | PC.NURSE ---
lab called with 1/3 bottles positive on bood cultures. Positive for gram + coocyx in chains and pairs. Dr Dodd notified.
--- NOTE | 2025-03-27 10:24 | CTR_ITS ---
PROCEDURE INFORMATION: Exam: CT Head Without Contrast Exam date and time: 03/27/2025 10:39 AM Age: 89 years old Clinical indication: Other: CVA TECHNIQUE: Imaging protocol: Computed tomography of the head without contrast. Radiation optimization: All CT scans at this facility use at least one of these dose optimization techniques: automated exposure control; mA and/or kV adjustment per patient size (includes targeted exams where dose is matched to clinical indication); or iterative reconstruction. COMPARISON: 1. CT head wo con* [id number] 03/26/2025 8:[address] head wo con* [id number] 01/12/2025 12:23 AM RADIATION DOSE METRICS: Total DLP (mGy-cm): 904.28 FINDINGS: Brain: Similar moderate generalized cortical volume loss. Again seen is a large area of encephalomalacia involving the right MCA distribution including in the right frontal, parietal, and temporal lobes. Periventricular and subcortical white matter hypodensities likely represent chronic small vessel ischemic changes. No acute intracranial hemorrhage or discrete extra-axial fluid collection. Cerebral ventricles: Prominent ventricles, likely related to volume loss. Paranasal sinuses: Visualized sinuses are unremarkable. No fluid levels. Mastoid air cells: Visualized mastoid air cells are well aerated. Bones: Unremarkable. No acute fracture. Soft tissues: Unremarkable. Vasculature: Vascular calcifications along the carotid siphons. CT/CT head wo con* [id number] IMPRESSION: 1. No definite acute intracranial findings. 2. Chronic/age-related changes as above, including old right MCA territory infarct, similar to prior.
--- NOTE | 2025-03-27 11:20 | PM.CONSULT ---
Providers/Reason For Consult Consulting Physician/Specialty*: Trey Kaur MD/ Cardiology Reason for Consult*: NSTEMI Attending Physician: Lang Dodd MD Primary Care Provider: Lex Pan MD History of Present Illness History of Present Illness Sara Almeida is a 89 year old female with history of dementia, DNR DNI, who is at a facility and had recent podiatry procedure. Since then was noted to have worsening shortness of breath. EKG has nonspecific ST-T wave changes and ST depressions. Initial troponin was over 1000 and has trended to over 3000. At this time patient is not responding appropriately. Did not does not complain of chest pain. She is drowsy. Not requiring pressors. Lactic acid is over 6. Review of Systems General: Denies: ROS unobtainable due to mental status Medications/Allergies Home Medications ?Medication ?Instructions ?Recorded ?Confirmed ?Last Taken ?Type cetirizine 10 mg tablet 10 mg PO DAILY 01/03/25 03/27/25 03/26/25 08:00 History clopidogrel 75 mg tablet 75 mg PO DAILY 01/03/25 03/27/25 03/25/25 History escitalopram oxalate 20 mg tablet 20 mg PO DAILY 01/03/25 03/27/25 03/26/25 History furosemide 20 mg tablet 20 mg PO DAILY 01/03/25 03/27/25 03/26/25 History levothyroxine 25 mcg tablet 25 mcg PO DAILY 01/03/25 03/27/25 03/26/25 History magnesium oxide 400 mg PO BID 01/03/25 03/27/25 03/26/25 History pantoprazole 40 mg tablet,delayed 40 mg PO QAM 01/03/25 03/27/25 03/26/25 History release pravastatin 10 mg tablet 10 mg PO QPM 01/03/25 03/27/25 03/26/25 History metoprolol tartrate 25 mg tablet 25 mg PO BID #60 tabs 01/05/25 03/27/25 03/26/25 Rx acetaminophen 325 mg tablet 650 mg PO Q6H PRN Pain 03/21/25 03/27/25 Unknown History losartan 25 mg tablet 25 mg PO QAM 03/21/25 03/27/25 03/26/25 History potassium chloride 20 mEq 20 meq PO QAM 05/03/27/25 03/26/25 History tablet,extended release(part/cryst) triamcinolone acetonide 0.1 % 1 applic topical BID 03/21/25 03/27/25 03/26/25 History topical cream linezolid 600 mg tablet 600 mg PO BID 14 days #28 tabs 03/23/25 03/27/25 Unknown Rx cefadroxil 500 mg capsule 500 mg PO Q12H #14 caps 03/25/25 03/27/25 Unknown Rx hydralazine 25 mg tablet 50 mg (2 x 25 mg) PO TID 30 days 03/25/25 03/27/25 03/26/25 Rx #180 tabs Allergies Allergy/AdvReac Type Severity Reaction Status Date / Time ciprofloxacin (From Cipro) Allergy Unknown Verified 01/04/25 11:40 Penicillins Allergy Unknown Verified 01/04/25 11:40 propoxyphene (From Darvon) Allergy Unknown Verified 01/04/25 11:40 Sulfa (Sulfonamide Allergy Unknown Verified 01/04/25 11:40 Antibiotics) Current Medications Generic Name Dose Route Start Last Admin Trade Name Freq PRN Reason Stop Dose Admin Aspirin 81 mg 03/26/25 22:47 03/27/25 00:16 Aspirin 81 Mg Ec Tablet PO Not Given DAILY JENELLE Heparin Sodium/Sodium Chloride 25,000 unit in 500 mls @ 0 mls/hr 03/26/25 22:47 03/27/25 08:43 Heparin Drip IV 11.94 unit/kg/hr CONT JENELLE 13 mls/hr Protocol Titration Per Protocol Sodium Bicarbonate 150 meq/ 1,150 mls @ 150 mls/hr 03/27/25 01:15 03/27/25 03:29 Dextrose IV 150 mls/hr .[id number] JENELLE Administration Insulin Human Lispro 0 unit 03/27/25 08:00 03/27/25 08:31 Insulin Lispro 100 Unit/1 Ml SUBCUT 14 unit WM&BEDTIME JENELLE Administration Protocol Levothyroxine Sodium 25 mcg 03/27/25 07:00 03/27/25 06:51 Levothyroxine 25 Mcg Tablet PO Not Given ACBREAKFAST JENELLE Pantoprazole Sodium 40 mg 03/26/25 22:47 03/26/25 23:31 Pantoprazole 40 Mg Sdv IVP 40 mg Q12H JENELLE Administration Sucralfate 1 gm 03/26/25 22:47 03/27/25 00:16 Sucralfate 1 Gm Tablet PO Not Given Q12H JENELLE PFSH Acute PFSH: Medical History Diabetes mellitus Urinary retention Acute UTI Social History Additional social history: She has DO NOT RESUSCITATE order from [facility] signed by PCP and Sara Almeida on 12/13/2024 Next of kin is son Freddie Almeida [phone] Vitals/I&O/Wt Last Vital Signs Temp 97.4 F L 03/27/25 08:00 Pulse 101 H 03/27/25 08:00 Resp 24 H 03/27/25 08:00 BP 118/90 03/27/25 08:00 Pulse Ox 92 03/27/25 08:00 O2 Del Method Room Air 03/27/25 08:00 03/26/25 03/27/25 03/27/25 22:59 06:59 14:59 Intake Total 1000 / 1000 1500 / 2500 109 / 109 Output Total 375 / 375 Balance 1000 / 1000 1500 / 2500 -266 / -266 Weight last 48 hrs Weight 107 lb 7 oz Weight 120 lb Physical Exam Narrative: GENERAL: Patient is non-responsive, occasionally opens eyes NECK: No jugular vein distension. [] HEENT: No cyanosis. No icterus. No pallor. [] HEART: Regular S1 and S2. Grade 2/6 systolic murmuc LUNGS: Clear to auscultate bilaterally. [] EXTREMITIES: Lower extremities with 1+ edema bilaterally. Urinary Catheter Management: Guerrero: Cath Placed During This Visit: yes Reason for Continuing Indwelling Catheter: Accurate Measurement of Urinary Output in Critically Ill Patients Urinary Catheter Date of Insertion: 03/26/25 Data 03/27/25 12:47 03/27/25 04:25 Micro: Microbiology 03/26/25 18:37 Blood Culture - Preliminary Blood 03/26/25 18:36 Blood Culture - Preliminary Blood SPECIMEN COLLECTED A&P Assessment and plan (1) NSTEMI (non-ST elevated myocardial infarction): (2) Dementia: (3) Seizure: Plan Patient has neurologic symptoms with possible stroke vs seizures. Currently non-verbal. Blood pressure is stable. She is DNR/DNI. At this time we will recommend continue with medical therapy. Continue heparin. Obtain echocardiogram. Goals of care discussion with family per primary team. Thank you for involving us with care of this patient. Please call with questions. PDMP PDMP Reviewed: Not Reviewed Consult Attestations Medical Necessity Statement: Care expected to cross 2 midnights. Coding Level of Care Code Acute Code for [employer] [facility] Diagnoses NSTEMI (non-ST elevated myocardial infarction) I21.4 Dementia without behavioral disturbance, psychotic disturbance, mood disturbance, or anxiety, unspecified dementia severity, unspecified dementia type F03.90 Dementia type: unspecified type Dementia severity: unspecified severity Dementia behavioral or psychological symptom: without behavioral, psychotic, or mood disturbance or anxiety Seizure R56.9
--- NOTE | 2025-03-27 11:33 | PC.CHAP ---
Pastoral Care Encounter/Spiritual Assessment Type of Contact [] Declined equities trader visit [] Patient/Family/Request visit [] Outpatient visit [] Follow-up visit [] Physician referral [] Code/Alert [] Routine visit [] Staff referral [] Actively dying [X] Patient sleeping [] Family support [] [] Out of room [] Palliative care [] [] Receiving care in room [] Pre-surgical visit [] Trauma [] Long length of stay [] ICU visit [] Other: Relational/Emotional Strength [] Patient feels connected with others/family/visitors/staff [] Distress [] Loneliness/isolation [] Abandonment Spirituality of Patient [] Person of Swathi [] Attends Tenriism of their Swathi [] Believes in Prayer [] Reads Bible or Mormonism materials [] There are Spiritual issues to be addressed Paper Control Clerk Interventions [] Prayer [] Active listening [] Non-anxious presence [] Spiritual/emotional support [] Crisis/trauma care [] Spiritual counseling [] Bereavement support [] Provided bereavement packet [] Provided Bible/devotional materials [] Provided toy/stuffed animal, coloring book to patient or family member [] Provided Communion [] Anointing/[place] [] Salvation [] Completed spiritual assessment [] Other: Impact on Illness or Injury [] Angry [] Fearful [] Anxious [] Often cries [] Exhaustion [] Unable to work [] Unable to attend religion [] Unable to walk/stand [] Unable to read [] Unable to drive [] Unable to eat/drink [] Unable to sleep [] Unable to be with family [] Patient intubated [] Other: Summary Time spent with patient
[2025-03-27] MEDS: meropenem 500 mg SDV IVP (11:55)
[2025-03-27] MEDS: pantoprazole 40 mg SDV IVP (11:56)
[2025-03-27 12:40] LABS: Glucose Point of Care 346 mg/dL (70-110)
--- NOTE | 2025-03-27 14:07 | PC.NURSE ---
pt unable to answer questions.does come from [facility]
[2025-03-27 15:57] LABS: Basophils % 0.1 %; Hematocrit 28.5 % (36-47); Lymphocytes # 1.6 10^3/uL (0.8-4.8); Lymphocytes % 8.8 %; Mean Corpuscular HGB Conc 33.3 g/dL (30-55); Mean Corpuscular Hemoglobin 32.3 pg (27-33); Mean Corpuscular Volume 96.9 fl (85-98); Mean Platelet Volume 9.3 fL (7.4-10.4); Monocytes # 0.9 10^3/uL (0.2-0.9); Monocytes % 5.3 %; Neutrophils # 15.13 10^3/uL (1.8-7.7); Nucleated Red Blood Cells % 0 %; Platelet Count 251 10^3/cmm (157-399); Red Blood Count 2.94 10^6/uL (3.85-5.65); Red Cell Distribution Width 13.6 % (12.1-15.1)
[2025-03-27 16:11] LABS: Alanine Aminotransferase 186 U/L (0-33); Albumin Level 2.5 g/dL (3.5-5.2); Alkaline Phosphatase 76 U/L (35-105); Anion Gap 17.4 (5-19); Aspartate Amino Transferase 463 U/L (0-32); Blood Urea Nitrogen 34 mg/dL (8-23); Calcium 7.8 mg/dL (8.5-10.5); Carbon Dioxide 23 mmol/L (22-29); Chloride 104 mmol/L (98-107); Creatinine Clr Calc Pharmacy 16.4294; Globulin 2.8 g/dL (1.3-4.6); Glucose 269 mg/dL (65-115); Osmolality Calculated 309 mOsm/kg (285-295); Potassium 3.4 mmol/L (3.5-5.1); Sodium 141 mmol/L (136-145); Total Bilirubin 0.3 mg/dL (0.15-1.2); Total Protein 5.3 g/dL (6.6-8.7)
[2025-03-27 16:16] LABS: Partial Thromboplastin Time 129.9 SECONDS (23.9-36.7)
[2025-03-27 16:20] LABS: Lactate (Lactic Acid level) 5.2 mmol/L (0.5-2.2); Troponin T (5th) Once 4317 ng/L (0-10)
[2025-03-27 16:52] LABS: Glucose Point of Care 249 mg/dL (70-110)
--- NOTE | 2025-03-27 17:24 | P.PN_ITS ---
Subjective 2 Subjective: - Overnight events noted - Patient was examined multiple times th roughout the morning - She was seen this morning she is nonre sponsive, pupils are equal round reactive to light, she does not track, trends to look more upwards - She does not withdraw from pain, does not respond to sternal rub - Blood pressure normotensive, tachypnea , tachycardia, is on room air - Urine output is lackluster - Patient is in multiorgan failure with acute renal failure, transaminitis, lactic acidosis with sepsis, gram-positive bacteremia - CTA was negative for PE - But she does have significant NSTEMI, echo shows EF of 30%, concerning for ischemic cardiomyopathy - However stress-induced cardiomyopathy associated with sepsis, gram-positive bacteremia certainly could be a source - She does have evidence of CHF on her C T of her chest - She also has radiographic evidence of pneumonia on her CT of the chest - Blood cultures show Enterococcus faeca lis bacteremia, with sepsis, with lactic acidosis, with acute renal failure - With severe encephalopathy, septic enc ephalopathy, GCS score is 4, patient is DNR/DNI Vitals/I&O/Wt Last Vital Signs Temp 97.5 F L 03/27/25 12:00 Pulse 102 H 03/27/25 12:00 Resp 20 H 03/27/25 12:00 BP 133/81 03/27/25 12:00 Pulse Ox 94 03/27/25 12:00 O2 Del Method Room Air 03/27/25 12:00 03/27/25 03/27/25 03/27/25 06:59 14:59 22:59 Intake Total 1500 / 2500 1259 / 1259 101.4 / 1360.4 Output Total 375 / 375 Balance 1500 / 2500 884 / 884 101.4 / 985.4 Weight last 48 hrs Weight 48.733 kg Weight 54.431 kg Physical Exam 2 Const: EXAM LIMITATIONS: altered mental status GENERAL APPEARANCE: in distress ORIENTATION/CONSCIOUSNESS: Yes confused and Yes patient obtunded; not awake, not oriented to person, not oriented to place and not oriented to time Eye: COMMON NORMALS: Equal, round and reactive pupils present PUPIL: Yes Equal, round and reactive pupils present OTHER: She has a tendency to look upwards Resp: COMMON NORMALS: normal respiratory effort, No retractions and No use of accessory muscles AUSCULTATION: crackles and wheezes Cardio: COMMON NORMALS: regular rhythm, S1 normal heart sound present and S2 normal heart sound present RATE: tachycardic RHYTHM: regular rhythm H EART SOUNDS: S1 normal heart sound present and S2 normal heart sound present GI: COMMON NORMALS: Normal to inspection, nondistended, normoactive bowel sounds present and non-tender Extremity: COMMON NORMALS: no pedal edema Neuro: SENSORIUM/ORIENTATION: No oriented to person, No oriented to place and No oriented to time Skin: OTHER: Sepsis examination Done 03/27/2025 At 9 AM DP PT pulses barely palpable, cap refill less than 2 seconds, mottling bilateral extremities Urinary Catheter Management: Guerrero: Cath Placed During This Visit: yes Reason for Continuing Indwelling Catheter: Accurate Measurement of Urinary Output in Critically Ill Patients Urinary Catheter Date of Insertion: 03/26/25 Data 03/27/25 15:04 03/27/25 15:04 Micro: Microbiology 03/26/25 18:37 Blood Culture - Preliminary Blood Enterococcus faecalis 03/26/25 18:36 Blood Culture - Preliminary Blood SPECIMEN COLLECTED A&P Assessment and plan (1) Septic shock: (2) Sepsis: (3) Bacteremia due to Enterococcus: (4) NSTEMI (non-ST elevated myocardial infarction): (5) Systolic CHF: (6) Cardiomyopathy: (7) Acute renal failure: (8) Lactic acidosis: (9) Metabolic acidosis: (10) Septic encephalopathy: (11) Seizure: Plan Enterococcus faecalis bacteremia - Source likely UTI - Possible GI source - Will consider further workup based on goals of care discussion with patient's son - Continue broad-spectrum antibiotic therapy - Continue vancomycin - Continue meropenem Sepsis, septic shock - Secondary to Enterococcus faecalis bacteremia - Secondary to pneumonia Pneumonia - Seen on CT angiogram the chest - Continue vancomycin - Continue meropenem Lactic acidosis - Secondary sepsis, Enterococcus faecalis bacteremia Acute renal failure - Urine output lackluster at 300 cc - On sodium bicarb drip - Likely secondary to sepsis Transaminitis, acute liver failure - Sec to sepsis, Enterococcus bacteremia NSTEMI - Ischemic versus nonischemic cardiomyopathy - Concern for stress-induced cardiomyopathy, given pneumonia, sepsis, Enterococcus bacteremia - Echocardiogram EF 30% - Cardiology's been consulted - Continue heparin drip Systolic CHF - BNP over 70,000 - Has failed trial of Lasix - As patient is septic shock, sepsis, will avoid further Lasix therapy Acute encephalopathy, GCS score is 4 - Likely septic encephalopathy -, Acute renal failure, sepsis, Enterococcus faecalis bacteremia, component of seizures - Repeat CT head today - Monitor mentation Concern for seizures - Currently seizure-free - Status post loading dose of Keppra DNR/DNI Overall prognosis is poor Status critical, prognosis poor Waiting goals of this care discussion with patient's son, hopefully can transition to comfort care PDMP PDMP Reviewed: Not Reviewed Attestations 2 Medical Necessity Statement*: Patient requires hospitalization, sepsis, Enterococcus faecalis bacteremia, sepsis, pneumonia, NSTEMI, acute renal failure, systolic CHF Diagnoses Septic shock A41.9; R65.21 Sepsis A41.9 Bacteremia due to Enterococcus R78.81; B95.2 NSTEMI (non-ST elevated myocardial infarction) I21.4 Systolic CHF I50.20 Cardiomyopathy I42.9 Acute renal failure N17.9 Lactic acidosis E87.20 Metabolic acidosis E87.20 Septic encephalopathy G93.41 Seizure R56.9
--- NOTE | 2025-03-27 18:00 | USR_ITS ---
PROCEDURE INFORMATION: Exam: US Duplex Lower Extremity Veins, Bilateral Exam date and time: 03/27/2025 1:57 PM Age: 89 years old Clinical indication: Edema, localized; Lower extremity, bilateral; Prior surgery; Surgery date: 3-7 days post-operative; Surgery type: RT toe surg; Additional info: Swelling TECHNIQUE: Imaging protocol: Real-time duplex ultrasound of the bilateral extremities with 2-D motta scale, color Doppler flow and spectral waveform analysis including responses to compression and other maneuvers (when performed) with image documentation. Complete exam focused on the lower extremity veins. COMPARISON: CT abdomen pelvis w con* [id number] 01/03/2025 12:13 PM FINDINGS: Right deep veins: Unremarkable. The common femoral, femoral, proximal profunda femoral and popliteal veins are patent without thrombus. Normal Doppler waveforms. Normal compressibility and/or augmentation response. Left deep veins: Unremarkable. The common femoral, femoral, proximal profunda femoral and popliteal veins are patent without thrombus. Normal Doppler waveforms. Normal compressibility and/or augmentation response. Superficial veins: Greater saphenous veins at the saphenofemoral junctions are patent bilaterally without thrombus. Soft tissues: Unremarkable. US/[place] [id number] IMPRESSION: No evidence of deep vein thrombosis.
[2025-03-27] MEDS: morphine 10 mg/0.5 mL oral liq UD SUBLINGUAL ×2 (18:06→19:53)
--- NOTE | 2025-03-27 18:43 | USCV_ITS ---
Sara Almeida Age: 89 Gender: F : 1935 Exam Date: 03/27/2025 13:57 Ordering Phys: Lang Dodd MD Technologist: Renan Beard Exam Location: [facility] [place] Indication: nstemi BP: 126 / 81 HR: 103 Rhythm: Sinus Technical Quality: Adequate MEASUREMENTS (Male / Female) Normal Values 2D ECHO LV Diastolic Diameter PLAX 3.3 cm 4.2 - 5.9 / 3.9 - 5.3 cm IVS Diastolic Thickness 1.1 cm 0.6 - 1.0 / 0.6 - 0.9 cm IVS Systolic Thickness 1.5 cm LVPW Diastolic Thickness 1.7 cm 0.6 - 1.0 / 0.6 - 0.9 cm LVPW Systolic Thickness 1.6 cm LVOT Diameter 2.0 cm LV Ejection Fraction 2D Teich 25.9 % LV Ejection Fraction MOD 4C 35.7 % LV Ejection Fraction MOD 2C 39.9 % LV Ejection Fraction 2C AL 39.3 % LA Diameter 3.6 cm RA Systolic Volume 4C AL 24.1 ml RA Systolic Volume 4C MOD 24.1 ml LA Sys Volume AL 48.0 cm cubed LA Sys Volume Index AL 33.2 cm cubed/m squared Aorta at Sinotubular Diameter 1.8 cm IVC Diameter 1.5 cm M-MODE LA Ao Ratio MM 1.7 AV Cusp Separation MM 1.4 cm DOPPLER AV Peak Velocity 83.3 cm/s LVOT Peak Velocity 50.0 cm/s AV Area Cont Eq vti 2.0 cm squared AV Area Cont Eq pk 1.9 cm squared MV Peak Velocity 118.0 cm/s TV Peak Velocity 301.3 cm/s TR Peak Velocity 342.0 cm/s TR Peak Gradient 46.8 mmHg TR Mean Velocity 260.0 cm/s TR Mean Gradient 29.4 mmHg TR Velocity Time Integral 103.2 cm PV Peak Velocity 58.0 cm/s RV Ejection Time 0.3 s FINDINGS Left Ventricle Left ventricle is normal size. LV systolic function is moderately reduced with EF of 35-40%. Moderate global hypokinesis. Right Ventricle Normal in size and function Right Atrium Normal in size Left Atrium Normal in size Mitral Valve Moderate mitral annular calcification. Moderate mitral regurgitation. Aortic Valve Aortic valve is thickened. No significant stenosis or regurgitation. Tricuspid Valve Mild tricuspid regurgitation. Pulmonary artery systolic pressure is normal. Pulmonic Valve Trace pulmonic regurgitation Pericardium Normal Aorta Normal in size IVC Appears to be normal CONCLUSIONS LV systolic function is moderately reduced with EF of 35-40%. Moderate mitral regurgitation Mild tricuspid regurgitation Trace pulmonic regurgitation Trey Kaur MD (Electronically Signed) Final Date: 28 March 2025 11:05 S
[2025-03-27] MEDS: blistex lip oint 7 gm Tube 1 APPLIC TOPICAL (19:53)
[2025-03-27] MEDS: morphine 4 mg/mL SDV 1 mL IVP (22:17)
[2025-03-28] VITALS (8 sets, daily range): BP systolic 90–97; BP diastolic 57–61; PULSE 106–137; RESP 16–90; TEMP 36.1–36.8; O2SAT 87–95
[2025-03-28] MEDS: morphine 4 mg/mL SDV 1 mL IVP ×4 (00:43→12:05)
[2025-03-28] MEDS: LORazepam 2 mg/mL INJ 1 mL IVP ×2 (06:32→11:39)
--- NOTE | 2025-03-28 15:13 | P.PN_ITS ---
Subjective 2 Subjective: Patient's resting comfortably, no acute events overnight, on comfort care, does not arouse Vitals/I&O/Wt Last Vital Signs Temp 96.9 F L 03/28/25 12:00 Pulse 137 H 03/28/25 12:00 Resp 16 03/28/25 12:05 BP 93/61 03/28/25 12:00 Pulse Ox 95 03/28/25 12:05 O2 Del Method Room Air 03/28/25 12:00 03/28/25 03/28/25 03/28/25 06:59 14:59 22:59 Output Total 150 / 700 Balance -150 / 1887.5 Weight last 48 hrs Weight 51.313 kg Weight 48.733 kg Weight 54.431 kg Physical Exam 2 Const: COMMON NORMALS: no acute distress Cardio: COMMON NORMALS: S1 normal heart sound present and S2 normal heart sound present HEART SOUNDS: S1 normal heart sound present and S2 normal heart sound present GI: COMMON NORMALS: Normal to inspection, nondistended, normoactive bowel sounds present Urinary Catheter Management: Guerrero: Cath Placed During This Visit: yes Reason for Continuing Indwelling Catheter: Accurate Measurement of Urinary Output in Critically Ill Patients Urinary Catheter Date of Insertion: 03/26/25 Data 03/27/25 16:57 03/27/25 15:04 Micro: Microbiology 03/27/25 09:32 Urine Culture - Preliminary Urine,Clean Catch 03/26/25 18:36 Blood Culture - Preliminary Blood NEGATIVE TO DATE 03/26/25 18:37 Blood Culture - Preliminary Blood Enterococcus faecalis A&P Assessment and plan (1) Septic shock: (2) Sepsis: (3) Bacteremia due to Enterococcus: (4) NSTEMI (non-ST elevated myocardial infarction): (5) Systolic CHF: (6) Cardiomyopathy: (7) Acute renal failure: (8) Lactic acidosis: (9) Metabolic acidosis: (10) Septic encephalopathy: (11) Seizure: (12) Need for comfort care: Plan Currently on comfort care - Continue comfort care orders Enterococcus faecalis bacteremia - Source likely UTI - Possible GI source - Will consider further workup based on goals of care discussion with patient's son - Continue broad-spectrum antibiotic therapy - Continue vancomycin - Continue meropenem Sepsis, septic shock - Secondary to Enterococcus faecalis bacteremia - Secondary to pneumonia Pneumonia - Seen on CT angiogram the chest - Continue vancomycin - Continue meropenem Lactic acidosis - Secondary sepsis, Enterococcus faecalis bacteremia Acute renal failure - Urine output lackluster at 300 cc - On sodium bicarb drip - Likely secondary to sepsis Transaminitis, acute liver failure - Sec to sepsis, Enterococcus bacteremia NSTEMI - Ischemic versus nonischemic cardiomyopathy - Concern for stress-induced cardiomyopathy, given pneumonia, sepsis, Enterococcus bacteremia - Echocardiogram EF 30% - Cardiology's been consulted - Continue heparin drip Systolic CHF - BNP over 70,000 - Has failed trial of Lasix - As patient is septic shock, sepsis, will avoid further Lasix therapy Acute encephalopathy, GCS score is 4 - Likely septic encephalopathy -, Acute renal failure, sepsis, Enterococcus faecalis bacteremia, component of seizures - Repeat CT head today - Monitor mentation Concern for seizures - Currently seizure-free - Status post loading dose of Keppra Currently on comfort care Overall prognosis is poor Status critical, prognosis poor PDMP PDMP Reviewed: Not Reviewed Attestations 2 Medical Necessity Statement*: Patient requires hospitalization for comfort care Diagnoses Septic shock A41.9; R65.21 Sepsis A41.9 Bacteremia due to Enterococcus R78.81; B95.2 NSTEMI (non-ST elevated myocardial infarction) I21.4 Systolic CHF I50.20 Cardiomyopathy I42.9 Acute renal failure N17.9 Lactic acidosis E87.20 Metabolic acidosis E87.20 Septic encephalopathy G93.41 Seizure R56.9 Need for comfort care
--- NOTE | 2025-03-28 18:21 | P.DES_ITS ---
Discharge Providers DDS Date of Admission: 03/26/25 17:59 Date Summary Completed: 03/29/25 Attending Provider at Admission: Lang Dodd MD Time of : 17:40 Attending Provider at Discharge: Lang Dodd MD Primary Care Provider: Lex Pan MD DS Diagnoses Hospital Diagnoses (1) Septic shock: (2) Sepsis: (3) Bacteremia due to Enterococcus: (4) NSTEMI (non-ST elevated myocardial infarction): (5) Systolic CHF: (6) Cardiomyopathy: (7) Acute renal failure: (8) Lactic acidosis: (9) Metabolic acidosis: (10) Septic encephalopathy: (11) Seizure: (12) Need for comfort care: Reason for Visit Reason for Visit weakness, SOB Summary Date and Time of Date of : 03/28/25 Time of : 17:40 Summary Summary: Sara Almeida is a 89 year old female currently resident of [place], she is nonambulatory nonverbal, speaks only 1-2 short words, wheelchair-bound, send hospitalization for cellulitis of the 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 Currently patient is alert to person, not to place, time, she does not follow commands, no family members at bedside, blood pressure 148/82, pulse is 94, temperature 98.7, respiratory 16 she is 97% on room air, she localizes pain, spontaneous eye opening, GCS score is about 10, she is resting comfortably, multiple attempts to reach [place] this, however all my calls were going over to voicemail I spoke to patient's son, discussed Sara's clinical status, her troponin is 1097, EKG shows ST depressions, there is no acute ST-T wave changes, she has no chest pain complaints, I am highly suspicious that she has a hypercoagulable event such as a pulmonary embolism with a recent surgery, ER has ordered CT angiogram of the chest, will start her on a heparin drip, during the last hospitalization she has had issues in terms of anemia concerns for GI bleed we will have to monitor her closely in the ICU on a heparin drip, she certainly could have a pneumonia as the chest x-ray shows bilateral infiltrates with sepsis I put her on broad-spectrum antibiotic therapy, although thought could be stress-induced cardiomyopathy or a cardiovascular event although the EKG shows no acute ST-T wave changes, will discuss with cardiology nonetheless put her on a heparin drip and clinically monitor cardiac echo ordered, discussed morbidity and mortality associate with her underlying condition, she is a DNR/DNI confirmed this with son, son wants to continue medical interventions however if her condition starts to deteriorate, or if she is suffering, or she is suffering significant complications or if the likelihood of meaningful recovery is unlikely he is agreeable to proceed with comfort care, but would want to be kept updated before fully proceeding with comfort care if her condition deteriorates, after discussing the risk and benefits of all options, he voiced understanding, all question answered, shared decision making, agreed to proceed Patient was admitted to [facility] for sepsis, septic shock, Enterococcus faecalis bacteremia, with pneumonia, lactic acidosis, acute renal failure, transaminitis, NSTEMI, EF 30%, systolic CHF, acute encephalopathy, concern for seizures. Patient was monitored as inpatient, she was a DNR/DNI received a trial medical therapy, cardiology was consulted, with multiple goals of care discussion with patient's family. Due to clinical deterioration, after optimal medical therapy, discussion of goals of care with patient's healthcare power of tax attorney, decision was made to pursue comfort care, patient was transitioned to comfort care. Time of 03/28/2025 at 1740 Additional Data Confirmation of as documented by pronouncing clinician: no pulse, no respirations and no heart sounds Family: at bedside Additional persons at bedside: nursing staff Attending/PCP notified?: I am attending Was code activated?: No Autopsy requested?: No Advance directives?: Yes Hospice patient?: No Discharge Plan Discharge Patient Disposition: Condition: Stable DS Attestations Time Spent in /Discharge Care*: greater than 30 min Quality - AMI: AMI present?: No Quality - Stroke: CVA present?: No Quality - VTE: VTE present?: No Coding Level of Care Code 46386 Total time (in minutes) for Discharge: 45 Diagnoses Septic shock A41.9; R65.21 Sepsis A41.9 Bacteremia due to Enterococcus R78.81; B95.2 NSTEMI (non-ST elevated myocardial infarction) I21.4 Systolic CHF I50.20 Cardiomyopathy I42.9 Acute renal failure N17.9 Lactic acidosis E87.20 Metabolic acidosis E87.20 Septic encephalopathy G93.41 Seizure R56.9 Need for comfort care
--- NOTE | 2025-03-28 19:21 | PC.NURSE ---
Dr. Dodd called by phone to notify him of patient's at [phone]
--- NOTE | 2025-03-28 21:29 | PC.NURSE ---
[facility] Pt released from [facility] and [facility]. Dorina Stoddard contacted for Home supervisor inspection and testing
== END 2025-03-28 17:40 | disposition expired | DRG 871 ==
LOC: ER 17:58 → ICU 20:42 → CSU 21:32
PROVIDERS: Internal Medicine; Admitting Provider Family Medicine; Emergency Provider Emergency Medicine; PCP Family Medicine; Visit Provider Family Medicine
DX: A41.81 Sepsis due to Enterococcus (principal); G93.41 Metabolic encephalopathy; I21.4 Non-ST elevation (NSTEMI) myocardial infarction; R65.21 Severe sepsis with septic shock; J18.9 Pneumonia, unspecified organism; J96.90 Respiratory failure, unspecified, unspecified whether with hypoxia or hypercapnia; I50.20 Unspecified systolic (congestive) heart failure; N17.9 Acute kidney failure, unspecified; E87.20 Acidosis, unspecified; I97.418 Intraoperative hemorrhage and hematoma of a circulatory system organ or structure complicating other circulatory system procedure; I11.0 Hypertensive heart disease with heart failure; I25.5 Ischemic cardiomyopathy; R56.9 Unspecified convulsions; Z51.5 Encounter for palliative care; E11.40 Type 2 diabetes mellitus with diabetic neuropathy, unspecified; E11.65 Type 2 diabetes mellitus with hyperglycemia; Z66 Do not resuscitate; R74.01 Elevation of levels of liver transaminase levels; F03.90 Unspecified dementia, unspecified severity, without behavioral disturbance, psychotic disturbance, mood disturbance, and anxiety; Z98.890 Other specified postprocedural states; Z99.3 Dependence on wheelchair; Z79.02 Long term (current) use of antithrombotics/antiplatelets; I69.920 Aphasia following unspecified cerebrovascular disease; Y83.8 Other surgical procedures as the cause of abnormal reaction of the patient, or of later complication, without mention of misadventure at the time of the procedure; Y92.239 Unspecified place in hospital as the place of occurrence of the external cause
CPT/HCPCS: 36415; 36416; 36592; 36600; 51702; 70450; 71045; 71275; 80048; 80053; 81001; 82550; 82728; 82803; 82962; 83605; 83735; 83880; 84145; 84443; 84484; 85014; 85018; 85025; 85378; 85730; 87040; 87086; 87150; 87186; 87205; 93005; 93306; 93970; 94664; 96365; 96367; 96372; 96376; 99285; A9270; C1751; J0456; J0696; J1644; J1815; J1938; J1953; J2060; J2185; J2270; J2470; J3370; J3490; J7030; J7050; J7070; J9999